=== PATIENT | female | born 1960 | race Caucasian/White ===

== ENCOUNTER 2020-09-20 10:42 | Inpatient (IN) | payer OTHER, SELFPAY ==
[2020-09-20] VITALS (15 sets, daily range): BP systolic 111–175; BP diastolic 56–83; PULSE 36–74; RESP 10–22; TEMP 36.1–37; O2SAT 92–100; BMI 20.5; BMI 25.0
--- NOTE | ~2020-09-20 | XR_ITS ---
EXAMINATION: XR CHEST CLINICAL INFORMATION: SOB COMPARISON: Chest 04/04/2017 TECHNIQUE: Frontal view of the chest was obtained. FINDINGS: The lungs are somewhat expanded and clear. The heart size is enlarged report vascularity is normal. The right jugular central catheter tip is in right atrium. No gross bony abnormality seen. XR/XR chest 1V IMPRESSION: Mild cardiomegaly. No acute pulmonary process seen.
--- NOTE | 2020-09-20 11:01 | PC.NURSE ---
ej done by dr. gipson to right juglar
--- NOTE | 2020-09-20 11:04 | ECG_ITS ---
Test Reason : BRADYCARDIA Blood Pressure : / mmHG Vent. Rate : 039 BPM Atrial Rate : 039 BPM P-R Int : 000 ms QRS Dur : 130 ms QT Int : 610 ms P-R-T Axes : 000 -67 064 degrees QTc Int : 491 ms Idioventricular rhythm vs junctional Abnormal ECG When compared with ECG of 20-SEP-2020 12:15, No significant changes seen Referred By: Rachel Hill Electronically Signed By:JACKIE CHAMBERLAIN
--- NOTE | 2020-09-20 11:08 | ECG_ITS ---
Test Reason : SOB Blood Pressure : / mmHG Vent. Rate : 087 BPM Atrial Rate : 122 BPM P-R Int : 000 ms QRS Dur : 182 ms QT Int : 616 ms P-R-T Axes : 000 -89 062 degrees QTc Int : 741 ms Undetermined rhythm - possibly idiioventricular Left axis deviation Could be from electrolyte abnormality Abnormal ECG When compared with ECG of 04-APR-2017 06:49, Rhythm change Referred By: Rachel Hill Electronically Signed By:JACKIE CHAMBERLAIN
--- NOTE | 2020-09-20 11:17 | ED_ITS ---
HPI - Altered Mental Status General Chief Complaint: Altered Mental Status Stated Complaint: ams Time Seen by Provider: 09/20/20 11:03 History of Present Illness HPI narrative: Patient is a 59-year-old female history of end-stage renal disease. Presented today with having change in mental status at dialysis center. Patient was getting her dialysis when she got more confused more bill rgic sent to the emergency department for further evaluation. Patient unable to give detailed history. It is only really able to give her name. Has a history of colon cancer. Status post colectomy. Patient has an ostomy site. Patient denies any coughing congestion. Feels weak. Related Data Allergies Allergy/AdvReac Type Severity Reaction Status Date / Time Penicillins [PENICILLINS] Allergy Unknown UNKNOWN Unverified 05/02/20 19:17 Review of Systems Review of Systems: Unable to obtain review systems secondary to patient's condition. Yes Unobtainable due to mental condition PMFSH Past Medical History Attestation statement: The following information was validated with the patient. Social History Social History Advance Directives: No Advance Directives Information Provided: No Physical Exam Vital Signs: Vital Signs: Last Vital Signs Pulse 40 L 09/20/20 12:30 Resp 13 09/20/20 12:30 BP 169/63 H 09/20/20 12:30 Pulse Ox 100 09/20/20 12:30 Body Mass Index 25.0 Appearance: Lethargic Oriented X3. Very weak Eyes: Pupils equal, round and reactive to light. ENT: Pharynx normal. Neck: Normal inspection. Neck supple. No lymph nodes noted. No crepitus CVS: Bradycardic. Pulses normal. Normal S1 and S2 Respiratory: No respiratory distress. Breath sounds normal. No Wheezing. No rales Abdomen: Soft and nontender. No rigidity. No distention. good BS x4 Skin: Skin warm and dry. Normal skin color. Normal skin turgor. Extremities: No lower extremity edema. Neurovascular intact to all extremities. No Lacerations. No Rash Neuro: Oriented X 3. Very weak. Moving all extremities MDM - Altered Mental Status MDM Narrative Medical decision making narrative: Patient's initial EKG showed a undetermined axis. Widened QRS and peaked T-waves with a heart rate of approximately 45. Patient with a history of end-stage renal disease. Did not get dialysis. T- waves appear peaked. Labs ordered. A 2nd EKG showed patient's heart rate is actually in the 30s with even more wide QRS an even more peaked T-waves. Patient was given calcium gluconate x2 g. Insulin with glucose. Bicarb drip and bicarb 1 amp IV. A 3rd EKG done showed a heart rate of 25 with a narrow QRS complex T-wave that actually looks improved from the 1st 2. Patient's potassium at that point was still pending. Patient's VBG showed a pH of 7.17. Case was discussed emergently with desulfurizer machine Dr. Bui for emergent dialysis. Patient's case also discussed with ICU and with the nursing material control supervisor for bed placement. Got in touch with Dr. Bui understood patient needs dialysis emergently. Discussed with ICU. Excepted patient to the intensive care unit for emergent dialysis. Patient's heart rate continued to be low in the 25-30 range. She was given 0.5 of atropine. Her heart rate is now in the 45 range. Still in critical condition. Will send patient to the intensive care unit immediately. At this time patient's potassium came back. Her potassium was 10. BUN and creatinine consistent with having end-stage renal disease. Medical Records Attestation: I reviewed the patient's medical records. Lab Data Attestation: I reviewed the patient's lab results. Result diagrams: 09/20/20 11:14 09/20/20 11:44 Labs: Lab Results 09/20/20 09/20/20 09/20/20 Range/Units 11:14 11:15 11:15 WBC 10.4 (4.8-10.8) X10*3/uL RBC 2.91 L (4.20-5.50) X10*6/uL Hgb 9.0 L (12.0-16.0) g/dl Hct 30.8 L (37-47) % MCV 105.8 H (80-98) fL MCH 30.9 (27.0-33.0) pg MCHC 29.2 L (31.0-35.0) g/dl RDW 19.3 H (11.0-16.0) % Plt Count 231 (160-400) X10*3/uL MPV 11.1 (9.4-12.3) fL Immature Gran % (Auto) 0.9 H (0.0-0.4) % Neut % (Auto) 76.7 H (45-73) % Lymph % (Auto) 13.6 L (20-40) % [place] % (Auto) 7.4 (2-11) % Eos % (Auto) 1.0 (0-4) % Baso % (Auto) 0.4 (0-2) % Lymph # (Auto) 1.4 (1.2-4.9) X10*3/uL [place] # (Auto) 0.8 (0.1-1.2) X10*3/uL Eos # (Auto) 0.1 (0.0-0.4) X10*3/uL Baso # (Auto) 0.0 (0.0-0.2) X10*3/uL Abs Immat Gran (auto) 0.09 H (0.00-0.03) X10*3/uL Absolute Neuts (auto) 7.9 (2.0-8.3) X10*3/uL Absolute Nucleated RBC 0.120 H (0.0-0.012) X10*3/uL Nucleated RBC % (auto) 1.2 H (0.0-0.2) /100WBC Smear Tech's Comments VERIFIED PT 17.5 H (10.8-13.0) SEC INR 1.5 H (0.9-1.1) VBG pH (7.32-7.43) VBG pCO2 mmHg VBG pO2 mmHg VBG HCO3 mmol/L VBG O2 Saturation % VBG Base Excess mmol/L BUN (9-16) mg/dL Creatinine (0.5-1.4) mg/dL Estim Creat Clear Calc Estimated GFR POC Glucose (60-115) mg/dL Random Glucose (60-115) mg/dL Lactic Acid 0.3 L (0.5-2.0) mmol/L Calcium (8.4-10.2) mg/dL Phosphorus (2.7-4.5) mg/dL Magnesium (1.6-2.6) mg/dL Total Bilirubin (0.0-1.0) mg/dL Direct Bilirubin (0.0-0.5) mg/dL AST (5-31) U/L ALT (0-31) U/L Alkaline Phosphatase (39-117) U/L Ammonia (13-55) umol/L Total Protein (6.5-8.0) g/dL Albumin (3.5-5.0) g/dL Coronavirus (PCR) (Negative) Influenza Type A (PCR) (Negative) Influenza Type B (PCR) (Negative) RSV RNA Qual (PCR) (Negative) 09/20/20 09/20/20 09/20/20 Range/Units 11:19 11:44 11:44 WBC (4.8-10.8) X10*3/uL RBC (4.20-5.50) X10*6/uL Hgb (12.0-16.0) g/dl Hct (37-47) % MCV (80-98) fL MCH (27.0-33.0) pg MCHC (31.0-35.0) g/dl RDW (11.0-16.0) % Plt Count (160-400) X10*3/uL MPV (9.4-12.3) fL Immature Gran % (Auto) (0.0-0.4) % Neut % (Auto) (45-73) % Lymph % (Auto) (20-40) % [place] % (Auto) (2-11) % Eos % (Auto) (0-4) % Baso % (Auto) (0-2) % Lymph # (Auto) (1.2-4.9) X10*3/uL [place] # (Auto) (0.1-1.2) X10*3/uL Eos # (Auto) (0.0-0.4) X10*3/uL Baso # (Auto) (0.0-0.2) X10*3/uL Abs Immat Gran (auto) (0.00-0.03) X10*3/uL Absolute Neuts (auto) (2.0-8.3) X10*3/uL Absolute Nucleated RBC (0.0-0.012) X10*3/uL Nucleated RBC % (auto) (0.0-0.2) /100WBC Smear Tech's Comments PT (10.8-13.0) SEC INR (0.9-1.1) VBG pH (7.32-7.43) VBG pCO2 mmHg VBG pO2 mmHg VBG HCO3 mmol/L VBG O2 Saturation % VBG Base Excess mmol/L BUN 99 H* (9-16) mg/dL Creatinine 9.16 H* (0.5-1.4) mg/dL Estim Creat Clear Calc 6.1 Estimated GFR 4 POC Glucose (60-115) mg/dL Random Glucose 230 H (60-115) mg/dL Lactic Acid (0.5-2.0) mmol/L Calcium 7.7 L (8.4-10.2) mg/dL Phosphorus 9.5 H (2.7-4.5) mg/dL Magnesium 2.2 (1.6-2.6) mg/dL Total Bilirubin 2.1 H (0.0-1.0) mg/dL Direct Bilirubin 1.9 H (0.0-0.5) mg/dL AST 56 H (5-31) U/L ALT 86 H (0-31) U/L Alkaline Phosphatase 1110 H (39-117) U/L Ammonia 35 (13-55) umol/L Total Protein 8.9 H (6.5-8.0) g/dL Albumin 3.2 L (3.5-5.0) g/dL Coronavirus (PCR) NEGATIVE (Negative) Influenza Type A (PCR) NEGATIVE (Negative) Influenza Type B (PCR) NEGATIVE (Negative) RSV RNA Qual (PCR) NEGATIVE (Negative) 09/20/20 09/20/20 Range/Units 11:44 12:02 WBC (4.8-10.8) X10*3/uL RBC (4.20-5.50) X10*6/uL Hgb (12.0-16.0) g/dl Hct (37-47) % MCV (80-98) fL MCH (27.0-33.0) pg MCHC (31.0-35.0) g/dl RDW (11.0-16.0) % Plt Count (160-400) X10*3/uL MPV (9.4-12.3) fL Immature Gran % (Auto) (0.0-0.4) % Neut % (Auto) (45-73) % Lymph % (Auto) (20-40) % [place] % (Auto) (2-11) % Eos % (Auto) (0-4) % Baso % (Auto) (0-2) % Lymph # (Auto) (1.2-4.9) X10*3/uL [place] # (Auto) (0.1-1.2) X10*3/uL Eos # (Auto) (0.0-0.4) X10*3/uL Baso # (Auto) (0.0-0.2) X10*3/uL Abs Immat Gran (auto) (0.00-0.03) X10*3/uL Absolute Neuts (auto) (2.0-8.3) X10*3/uL Absolute Nucleated RBC (0.0-0.012) X10*3/uL Nucleated RBC % (auto) (0.0-0.2) /100WBC Smear Tech's Comments PT (10.8-13.0) SEC INR (0.9-1.1) VBG pH 7.17 L* (7.32-7.43) VBG pCO2 37 mmHg VBG pO2 91 mmHg VBG HCO3 13 mmol/L VBG O2 Saturation 93.0 % VBG Base Excess -13.6 mmol/L BUN (9-16) mg/dL Creatinine (0.5-1.4) mg/dL Estim Creat Clear Calc Estimated GFR POC Glucose 215 H (60-115) mg/dL Random Glucose (60-115) mg/dL Lactic Acid (0.5-2.0) mmol/L Calcium (8.4-10.2) mg/dL Phosphorus (2.7-4.5) mg/dL Magnesium (1.6-2.6) mg/dL Total Bilirubin (0.0-1.0) mg/dL Direct Bilirubin (0.0-0.5) mg/dL AST (5-31) U/L ALT (0-31) U/L Alkaline Phosphatase (39-117) U/L Ammonia (13-55) umol/L Total Protein (6.5-8.0) g/dL Albumin (3.5-5.0) g/dL Coronavirus (PCR) (Negative) Influenza Type A (PCR) (Negative) Influenza Type B (PCR) (Negative) RSV RNA Qual (PCR) (Negative) ECG Data ECG #1: Interpretation: First EKG showed an undetermined rhythm heart rate was approximately 45. Patient has widened QRS and peaked T-waves. Second EKG showed a heart rate of approximately 30. With a an extremely widened QRS and even more peaked T-wave. Third EKG showed a heart rate of approximately 30 with QRS narrow old substantially peaked T-waves improved dramatically. 4 th EKG showed a idioventricular rhythm heart rate of 40. QRS has narrowed T- wave not as peaked is the 1st 3. Critical Care Time Critical Care Time Critical Care Time: Yes Total Critical Care Time: 120 Attestation: I have personally provided 120 minutes of critical care time exclusive of time spent on separately billable procedures. Time includes review of lab data, radiology results, discussion with consultants, and monitoring for potential decompensation. Interventions were performed as documented above Discharge Plan Discharge Clinical Impression: ESRD (end stage renal disease), Acute hyperkalemia Patient Disposition: Admitted As Inpatient
[2020-09-20 11:43] LABS: INTERNATIONAL NORM RATIO 1.5 (0.9-1.1); Prothrombin Time 17.5 SEC (10.8-13.0)
[2020-09-20 11:44] LABS: Lactic Acid 0.3 mmol/L (0.5-2.0)
[2020-09-20 11:48] LABS: Basophils Percent Auto 0.4 % (0-2); Eosinophils Absolute Auto 0.1 X10*3/uL (0.0-0.4); Hematocrit 30.8 % (37-47); Imm Gran Abs Auto 0.09 X10*3/uL (0.00-0.03); Imm Gran Pct Auto 0.9 % (0.0-0.4); Lymphocytes Absolute Auto 1.4 X10*3/uL (1.2-4.9); Lymphocytes Percent Auto 13.6 % (20-40); Mean Corpuscular HGB Conc 29.2 g/dl (31.0-35.0); Mean Corpuscular Hemoglobin 30.9 pg (27.0-33.0); Mean Corpuscular Volume 105.8 fL (80-98); Mean Platelet Volume 11.1 fL (9.4-12.3); Monocytes Absolute Auto 0.8 X10*3/uL (0.1-1.2); Monocytes Percent Auto 7.4 % (2-11); Neutrophils Absolute Auto 7.9 X10*3/uL (2.0-8.3); Neutrophils Percent Auto 76.7 % (45-73); Platelet Count 231 X10*3/uL (160-400); Red Blood Count 2.91 X10*6/uL (4.20-5.50); Red Cell Distribution Width 19.3 % (11.0-16.0); White Blood Count 10.4 X10*3/uL (4.8-10.8)
[2020-09-20 11:54] LABS: PCO2 VBG 37 mmHg; PO2 VBG 91 mmHg
[2020-09-20 11:55] LABS: Base Excess VBG -13.6 mmol/L; HCO3 VBG 13 mmol/L
[2020-09-20 11:57] LABS: pH VBG 7.17 (7.32-7.43)
[2020-09-20 11:58] LABS: MANUAL DIFF FLAG SCAN; NRBC Pct Auto 1.2 /100WBC (0.0-0.2)
--- NOTE | 2020-09-20 12:01 | ECG_ITS ---
Test Reason : REPEAT Blood Pressure : / mmHG Vent. Rate : 029 BPM Atrial Rate : 000 BPM P-R Int : 000 ms QRS Dur : 088 ms QT Int : 520 ms P-R-T Axes : 000 000 258 degrees QTc Int : 362 ms Idioventricular rhythm Abnormal ECG When compared with ECG of 20-SEP-2020 11:41, No significant changes seen Referred By: Rachel Hill Electronically Signed By:JACKIE CHAMBERLAIN
[2020-09-20 12:06] LABS: Glucose, Whole Blood 215 mg/dL (60-115)
[2020-09-20] MEDS: Calcium Gluconate/NaCl,Iso-Osm 1 GM/50 ML PLAST..BAG IV ×2 (12:10→12:15)
--- NOTE | 2020-09-20 12:10 | PC.NURSE ---
pt was brought to ED by EMS from dialysis for altered mental status. after pt HR dropped into the high 20's, at bedside, pt placed on pacer pads. pt was given IV calcium gluconate x 2, 1 amp of sodium bicarbonate, half amp of dextrose, 5 units of insulin.
[2020-09-20] MEDS: Sodium Bicarbonate 8.4% 150 MEQ in Dextrose 5 % 850 ML 50 MEQ IVPUSH (12:12)
--- NOTE | 2020-09-20 12:12 | ECG_ITS ---
Test Reason : REPEAT Blood Pressure : / mmHG Vent. Rate : 039 BPM Atrial Rate : 039 BPM P-R Int : 000 ms QRS Dur : 102 ms QT Int : 594 ms P-R-T Axes : 000 -53 058 degrees QTc Int : 478 ms Undetermined rhythm Possibly junctional Abnormal ECG When compared with ECG of 20-SEP-2020 12:03, Significant changes have occurred Referred By: Rachel Hill Electronically Signed By:JACKIE CHAMBERLAIN
[2020-09-20 12:15] LABS: Ammonia 35 umol/L (13-55)
[2020-09-20] MEDS: Insulin Regular, Human 100 UNIT/ML 3 ML VIAL IVPUSH (12:15)
[2020-09-20] MEDS: Dextrose 50 % 25 GM/50 ML SYRINGE IVPUSH (12:16)
[2020-09-20 12:18] LABS: Influenza A PCR NEGATIVE (Negative); Influenza B PCR NEGATIVE (Negative); Resp Syncy Virus RNA Qual PCR NEGATIVE (Negative); SARS COV2 PCR INHOUSE NEGATIVE (Negative)
[2020-09-20 12:23] LABS: SLIDE REVIEW VERIFIED
[2020-09-20 12:29] LABS: Alanine Aminotransferase 86 U/L (0-31); Albumin Level 3.2 g/dL (3.5-5.0); Alkaline Phosphatase 1110 U/L (39-117); Aspartate Amino Transferase 56 U/L (5-31); Bilirubin Direct 1.9 mg/dL (0.0-0.5); Bilirubin Total 2.1 mg/dL (0.0-1.0); Calcium 7.7 mg/dL (8.4-10.2); Glucose Random 230 mg/dL (60-115); Magnesium 2.2 mg/dL (1.6-2.6); Phosphorus 9.5 mg/dL (2.7-4.5); Total Protein 8.9 g/dL (6.5-8.0)
--- NOTE | 2020-09-20 12:30 | PC.NURSE ---
pt given half amp of atropine for low HR with MD at bedside. pt has left BKA. Right foot has wound on heel and toes with developing necrosis. ring finger tip on left hand also developing necrosis. pt also has a colostomy bag on right side of abdomen.
[2020-09-20 12:31] LABS: Creatinine Clr Calc Pharmacy 6.1; Estimated Glomerular Filt Rate 4
[2020-09-20 12:34] LABS: Sodium 130 mmol/L (135-145)
[2020-09-20 12:35] LABS: Anion Gap 23 (12-20); Carbon Dioxide 13 mmol/L (22-29); Chloride 104 mmol/L (96-108)
[2020-09-20 12:36] LABS: Blood Urea Nitrogen 99 mg/dL (9-16)
[2020-09-20 12:40] LABS: Glucose, Whole Blood 254 mg/dL (60-115)
--- NOTE | 2020-09-20 12:55 | PC.NURSE ---
nurse to nurse given to wei rn, pt aware of planof care for transfer to icu.
[2020-09-20 13:22] LABS: Glucose, Whole Blood 169 mg/dL (60-115)
[2020-09-20 13:37] LABS: Glucose, Whole Blood 245 mg/dL (60-115)
[2020-09-20] MEDS: diphenhydrAMINE HCL 50 MG/ML VIAL 25 MG IVPUSH (14:37)
[2020-09-20] MEDS: hydrALAZINE HCl 20 MG/ML VIAL IVPUSH (14:38)
--- NOTE | 2020-09-20 14:43 | PM.CCHP ---
History of Present Illness Date of Service: 09/20/20 Mrs. Corcoran is admitted to the ICU this afternoon with symptomatic hyperkalemia, for acute hemodialysis. The patient is a 59-year-old female with end-stage renal disease and poorly controlled hypertension. The patient tells us that she is dialyzed Wednesday, but missed her dialysis session this past Wednesday. On arrival to her dialysis center this morning, she was confused and lethargic, and was therefore not dialyzed, and sent here to the ED for evaluation. In the ED she was confused and unable to give a history. She was only able to give her name. She has a history of colon cancer and has an ostomy. She denied any coughing or congestion, feels weak. Initial vital signs in the ED showed a heart rate of 48, blood pressure 150/74, respiratory rate of 17, with a sat of high 100% on 3 L nasal cannula. Her heart rate dropped down into the 30s, but she was still hypertensive. Temperature was 97.2 degrees. EKG showed undetermined axis with widened QRS and peaked T-waves. She was given calcium gluconate, insulin, glucose, and bicarb. Labs were drawn, and she was referred urgently to the ICU for emergent dialysis. Labs from the ED came back as below. Notably, potassium is 10, BUN and creatinine 99/9.1, bicarb of 13, glucose of 230, Taylor 9.5, mildly elevated LFTs, albumin 3.2. COVID serology negative. In the ICU, heart rate was 60, blood pressure 158/63, breathing easy, with sat 100% on 3 L oxygen by nasal cannula. Temperature was 97.2 degrees. The patient is lethargic, but able to answer questions with vigorous prompting. She has about 3-4 cm JVD with the head of the bed at 30-40 degrees. Chest is clear to auscultation, with a normal expiratory phase. She has a PermCath. She has multiple lesions from scratching all over her body. She has an area of gangrene at the tip of one of the fingers on her left hand. 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 She?s been started on HD. BP is now up to 210/95. I?m giving her 20 mg hydralazine and 25 mg Benadryl for her itching, while we wait for her Med Rec. IMPRESSION: 1. End-stage renal disease with dialysis noncompliance 2. Symptomatic hyperkalemia 3. Uncontrolled hypertension. Blood pressure now down to 160/83. No evidence of pulmonary edema. Sat is now 94% on room air. She should be stable to transfer to a regular room after completion of dialysis. I will sign out to the hospitalists. We are awaiting her Med Rec to restart her antihypertensives. Critical care time: 60 minutes. [facility] Social History Social History Household Members: Other Household Members Other:: [employer] facilty Housing: Shelter Unable to assess alcohol history related to: Unknown and Refusing to respond Smoking Status: Smoker, status unknown Use of substances other than those prescribed or required for medical reasons: Refusing to respond Currently Displaying Signs/Symptoms of Drug Intoxication Withdrawal: No Advance Directives: No Advance Directives Information Provided: No Do you have thoughts of harming others: None Do you have a plan to hurt others: No Plan Recently lost weight without trying: Unsure Meds Allergies Allergy/AdvReac Type Severity Reaction Status Date / Time Penicillins [PENICILLINS] Allergy Unknown UNKNOWN Unverified 09/20/20 14:36 Home Medications Medication Instructions Recorded Confirmed Type B complex-vitamin C-folic acid 1 tab PO DAILY 09/20/20 09/20/20 History [Nephro-Huan] acetaminophen 650 mg PO Q6H PRN 09/20/20 09/20/20 History [id number] 1 ea PO DAILY 09/20/20 09/20/20 History atorvastatin 20 mg PO BEDTIME 09/20/20 09/20/20 History bisacodyl 5 mg PO BEDTIME 09/20/20 09/20/20 History carvedilol 25 mg PO BID 09/20/20 09/20/20 History cholecalciferol (vitamin D3) 1,250 mcg PO QWEEK 09/20/20 09/20/20 History hydromorphone 2 mg PO Q4H PRN 09/20/20 09/20/20 History insulin lispro [Admelog U-100 1 sliding scale dose SUBCUT 09/20/20 09/20/20 History Insulin lispro] USEASDIRECTD lisinopril 5 mg PO DAILY 09/20/20 09/20/20 History melatonin 5 mg PO BEDTIME PRN 09/20/20 09/20/20 History methadone [Methadone Intensol] 20 mg PO DAILY 09/20/20 09/20/20 History midodrine 5 mg PO BID PRN 09/20/20 09/20/20 History mirtazapine [Remeron] 7.5 mg PO BEDTIME 09/20/20 09/20/20 History pantoprazole [Protonix] 40 mg PO DAILY 09/20/20 09/20/20 History sevelamer carbonate 800 mg PO TID 09/20/20 09/20/20 History sodium polystyrene sulfonate 15 g PO YOU@1000 09/20/20 09/20/20 History [Kayexalate] Physical Exam Vital Signs: Vital Signs: Last Vital Signs Temp 97.2 F 09/20/20 14:00 Pulse 69 09/20/20 14:38 Resp 10 L 09/20/20 14:00 BP 160/83 H 09/20/20 14:38 Pulse Ox 100 09/20/20 14:00 Body Mass Index 25.0 Results Labs CBC and Chem 7: 09/20/20 11:14 09/20/20 11:44 Labs: Laboratory Results - last 24 hr 09/20/20 09/20/20 09/20/20 10:52 11:14 11:15 MCV 105.8 H MCH 30.9 MCHC 29.2 L RDW 19.3 H Plt Count 231 MPV 11.1 Immature Gran % (Auto) 0.9 H Neut % (Auto) 76.7 H Lymph % (Auto) 13.6 L [place] % (Auto) 7.4 Eos % (Auto) 1.0 Baso % (Auto) 0.4 Lymph # (Auto) 1.4 [place] # (Auto) 0.8 Eos # (Auto) 0.1 Baso # (Auto) 0.0 Abs Immat Gran (auto) 0.09 H Absolute Neuts (auto) 7.9 Absolute Nucleated RBC 0.120 H Nucleated RBC % (auto) 1.2 H Smear Tech's Comments VERIFIED PT 17.5 H INR 1.5 H VBG pH VBG pCO2 VBG pO2 VBG HCO3 VBG O2 Saturation VBG Base Excess Anion Gap Estim Creat Clear Calc Estimated GFR POC Glucose 169 H Random Glucose Lactic Acid Calcium Phosphorus Magnesium Total Bilirubin Direct Bilirubin AST ALT Alkaline Phosphatase Ammonia Total Protein Albumin Coronavirus (PCR) Influenza Type A (PCR) Influenza Type B (PCR) RSV RNA Qual (PCR) 09/20/20 09/20/20 09/20/20 11:15 11:19 11:44 MCV MCH MCHC RDW Plt Count MPV Immature Gran % (Auto) Neut % (Auto) Lymph % (Auto) [place] % (Auto) Eos % (Auto) Baso % (Auto) Lymph # (Auto) [place] # (Auto) Eos # (Auto) Baso # (Auto) Abs Immat Gran (auto) Absolute Neuts (auto) Absolute Nucleated RBC Nucleated RBC % (auto) Smear Tech's Comments PT INR VBG pH VBG pCO2 VBG pO2 VBG HCO3 VBG O2 Saturation VBG Base Excess Anion Gap 23 H Estim Creat Clear Calc 6.1 Estimated GFR 4 POC Glucose Random Glucose 230 H Lactic Acid 0.3 L Calcium 7.7 L Phosphorus 9.5 H Magnesium 2.2 Total Bilirubin 2.1 H Direct Bilirubin 1.9 H AST 56 H ALT 86 H Alkaline Phosphatase 1110 H Ammonia Total Protein 8.9 H Albumin 3.2 L Coronavirus (PCR) NEGATIVE Influenza Type A (PCR) NEGATIVE Influenza Type B (PCR) NEGATIVE RSV RNA Qual (PCR) NEGATIVE 09/20/20 09/20/20 09/20/20 11:44 11:44 12:02 MCV MCH MCHC RDW Plt Count MPV Immature Gran % (Auto) Neut % (Auto) Lymph % (Auto) [place] % (Auto) Eos % (Auto) Baso % (Auto) Lymph # (Auto) [place] # (Auto) Eos # (Auto) Baso # (Auto) Abs Immat Gran (auto) Absolute Neuts (auto) Absolute Nucleated RBC Nucleated RBC % (auto) Smear Tech's Comments PT INR VBG pH 7.17 L* VBG pCO2 37 VBG pO2 91 VBG HCO3 13 VBG O2 Saturation 93.0 VBG Base Excess -13.6 Anion Gap Estim Creat Clear Calc Estimated GFR POC Glucose 215 H Random Glucose Lactic Acid Calcium Phosphorus Magnesium Total Bilirubin Direct Bilirubin AST ALT Alkaline Phosphatase Ammonia 35 Total Protein Albumin Coronavirus (PCR) Influenza Type A (PCR) Influenza Type B (PCR) RSV RNA Qual (PCR) 09/20/20 09/20/20 12:36 13:32 MCV MCH MCHC RDW Plt Count MPV Immature Gran % (Auto) Neut % (Auto) Lymph % (Auto) [place] % (Auto) Eos % (Auto) Baso % (Auto) Lymph # (Auto) [place] # (Auto) Eos # (Auto) Baso # (Auto) Abs Immat Gran (auto) Absolute Neuts (auto) Absolute Nucleated RBC Nucleated RBC % (auto) Smear Tech's Comments PT INR VBG pH VBG pCO2 VBG pO2 VBG HCO3 VBG O2 Saturation VBG Base Excess Anion Gap Estim Creat Clear Calc Estimated GFR POC Glucose 254 H 245 H Random Glucose Lactic Acid Calcium Phosphorus Magnesium Total Bilirubin Direct Bilirubin AST ALT Alkaline Phosphatase Ammonia Total Protein Albumin Coronavirus (PCR) Influenza Type A (PCR) Influenza Type B (PCR) RSV RNA Qual (PCR) Imaging Radiologist's Impressions: Impressions Chest X-Ray 09/20/20 11:04 IMPRESSION: Mild cardiomegaly. No acute pulmonary process seen. Critical Care Time Critical Care Time (minutes): 60
--- NOTE | 2020-09-20 15:32 | P.CONNP_ITS ---
History of Present Illness Reason for Consult Consult date: 09/20/20 Chief Complaint Chief complaint: ESRF, symptomatic hyperkalemia History of Present Illness Narrative: Elvia is a 59-year-old non compliant female with end-stage renal dis ease who usually gets dialysis on Wednesday presented to ER with confusion and lethargy. She has not had dialysis on Wednesday. She denied any coughing or congestion, feels weak. In the ER she had a heart rate of 30, blood pressure 150/74, respiratory rate of 17, with a sat of high 10 0% on 3 L nasal cannula. EKG showed undetermined axis with widened QRS and peaked T-waves. She was given calcium gluconate, insulin, glucose, and bicarb. Her serum was potassium is 10, COVID serology negative. Nephrology was consulted to assit in her clinical care.. 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 Housing: [facility] Unable to assess alcohol history related to: Unknown and Refusing to respond Smoking Status: Smoker, status unknown Use of substances other than those prescribed or required for medical reasons: Refusing to respond Advance Directives: No Advance Directives Information Provided: No Do you have thoughts of harming others: None Do you have a plan to hurt others: No Plan Recently lost weight without trying: Unsure Meds Allergies Allergy/AdvReac Type Severity Reaction Status Date / Time Penicillins [PENICILLINS] Allergy Unknown UNKNOWN Unverified 09/20/20 14:36 Home Medications Medication Instructions Recorded Confirmed Type B complex-vitamin C-folic acid 1 tab PO DAILY 09/20/20 09/20/20 History [Nephro-Huan] acetaminophen 650 mg PO Q6H PRN 09/20/20 09/20/20 History [id number] 1 ea PO DAILY 09/20/20 09/20/20 History atorvastatin 20 mg PO BEDTIME 09/20/20 09/20/20 History bisacodyl 5 mg PO BEDTIME 09/20/20 09/20/20 History carvedilol 25 mg PO BID 09/20/20 09/20/20 History cholecalciferol (vitamin D3) 1,250 mcg PO QWEEK 09/20/20 09/20/20 History hydromorphone 2 mg PO Q4H PRN 09/20/20 09/20/20 History insulin lispro [Admelog U-100 1 sliding scale dose SUBCUT 09/20/20 09/20/20 Hi story Insulin lispro] USEASDIRECTD lisinopril 5 mg PO DAILY 09/20/20 09/20/20 History melatonin 5 mg PO BEDTIME PRN 09/20/20 09/20/20 History methadone [Methadone Intensol] 20 mg PO DAILY 09/20/20 09/20/20 History midodrine 5 mg PO BID PRN 09/20/20 09/20/20 History mirtazapine [Remeron] 7.5 mg PO BEDTIME 09/20/20 09/20/20 History pantoprazole [Protonix] 40 mg PO DAILY 09/20/20 09/20/20 History sevelamer carbonate 800 mg PO TID 09/20/20 09/20/20 History sodium polystyrene sulfonate 15 g PO YOU@1000 09/20/20 09/20/20 History [Kayexalate] Physical Exam Vital Signs: Last Vital Signs Temp 97.2 F 09/20/20 14:00 Pulse 69 09/20/20 14:38 Resp 10 L 09/20/20 14:00 BP 160/83 H 09/20/20 14:38 Pulse Ox 100 09/20/20 14:00 Body Mass Index 25.0 Const General: confusion Orientation/consciousness: confusion Neck Neck: Yes supple Resp Auscultation: diminished lung sounds Cardio Rate: regular rate GI Palpation (GI): Soft to palpation Neuro General: confusion Results Lab Results Result Diagrams: 09/20/20 11:14 09/20/20 11:44 Lab results: Chemistry 09/20/20 11:44 Sodium 130 L Potassium 10.0 H* Carbon Dioxide 13 L BUN 99 H* Creatinine 9.16 H* Calcium 7.7 L Phosphorus 9.5 H Hematology 09/20/20 11:14 WBC 10.4 Hgb 9.0 L Plt Count 231 Assessment and Plan (1) ESRD (end stage renal disease): Problem details: Life threatening Hyperkalemia needing emergent HD( arranged) Renal Diet ( Low K/ Low Na/Low Phos/Fluid restriction) May need HD again tomorrow. HD MWF; Phos binders with meals Shall follow up Status: Acute
--- NOTE | 2020-09-20 15:47 | PC.NURSE ---
Pt arrived to ICu room 254 via stretcher with ed rn and zoll with no incident. Pt lethargic but arousable, hr 30s, no p waves, bps 150s systollically. benzol operator at bedside and pt immediately started on dialysis. Sodium bicarb infusing through EJ on right side. Pt initially unable to move extremities, after a few minutes of dilaysis pt more wakefull and heart rate up to 60s-70s. BPS trending 200s systollically, made aware hydralizine ordered and given with good effect. PT complaining of skin itchiness, picking at scabs on body, md aware, and benedryl iv ordered and given. pt with mulitple wounds on body, photos in chart. Wound consult placed.
[2020-09-21] VITALS (9 sets, daily range): BP systolic 129–198; BP diastolic 60–89; PULSE 64–69; RESP 17–18; TEMP 36.4–37.1; O2SAT 96–100
[2020-09-21 07:07] LABS: Glucose, Whole Blood 90 mg/dL (60-115)
--- NOTE | 2020-09-21 09:14 | PM.PNNEP ---
Subjective Subjective Date of Service: 09/21/20 Physical Exam Vital Signs: Vital Signs: Last Vital Signs Temp 98.2 F 09/21/20 07:09 Pulse 65 09/21/20 07:09 Resp 17 09/21/20 07:09 BP 139/65 09/21/20 07:09 Pulse Ox 100 09/21/20 07:09 Body Mass Index 25.0 Const: General: confusion and tired appearing Orientation/consciousness: confusion Neck: Neck: Yes supple Resp: Auscultation: diminished lung sounds Cardio: Jugular venous distension: no JVD Rate: regular rate GI: Palpation (GI): Soft to palpation Auscultation: normal bowel sounds Neuro: General: confusion Motor exam (neuro): no asterixis Objective Data Labs CBC & Chem 7: 09/20/20 11:14 09/20/20 11:44 Labs: Laboratory Results - last 24 hr 09/20/20 09/20/20 09/20/20 10:52 11:14 11:15 WBC 10.4 RBC 2.91 L Hgb 9.0 L Hct 30.8 L MCV 105.8 H MCH 30.9 MCHC 29.2 L RDW 19.3 H Plt Count 231 MPV 11.1 Immature Gran % (Auto) 0.9 H Neut % (Auto) 76.7 H Lymph % (Auto) 13.6 L Mccormick % (Auto) 7.4 Eos % (Auto) 1.0 Baso % (Auto) 0.4 Lymph # (Auto) 1.4 Mccormick # (Auto) 0.8 Eos # (Auto) 0.1 Baso # (Auto) 0.0 Abs Immat Gran (auto) 0.09 H Absolute Neuts (auto) 7.9 Absolute Nucleated RBC 0.120 H Nucleated RBC % (auto) 1.2 H Smear Tech's Comments VERIFIED PT 17.5 H INR 1.5 H VBG pH VBG pCO2 VBG pO2 VBG HCO3 VBG O2 Saturation VBG Base Excess Sodium Potassium Chloride Carbon Dioxide Anion Gap BUN Creatinine Estim Creat Clear Calc Estimated GFR POC Glucose 169 H Random Glucose Lactic Acid Calcium Phosphorus Magnesium Total Bilirubin Direct Bilirubin AST ALT Alkaline Phosphatase Ammonia Total Protein Albumin Coronavirus (PCR) Influenza Type A (PCR) Influenza Type B (PCR) RSV RNA Qual (PCR) 09/20/20 09/20/20 09/20/20 11:15 11:19 11:44 WBC RBC Hgb Hct MCV MCH MCHC RDW Plt Count MPV Immature Gran % (Auto) Neut % (Auto) Lymph % (Auto) Mccormick % (Auto) Eos % (Auto) Baso % (Auto) Lymph # (Auto) Mccormick # (Auto) Eos # (Auto) Baso # (Auto) Abs Immat Gran (auto) Absolute Neuts (auto) Absolute Nucleated RBC Nucleated RBC % (auto) Smear Tech's Comments PT INR VBG pH VBG pCO2 VBG pO2 VBG HCO3 VBG O2 Saturation VBG Base Excess Sodium 130 L Potassium 10.0 H* Chloride 104 Carbon Dioxide 13 L Anion Gap 23 H BUN 99 H* Creatinine 9.16 H* Estim Creat Clear Calc 6.1 Estimated GFR 4 POC Glucose Random Glucose 230 H Lactic Acid 0.3 L Calcium 7.7 L Phosphorus 9.5 H Magnesium 2.2 Total Bilirubin 2.1 H Direct Bilirubin 1.9 H AST 56 H ALT 86 H Alkaline Phosphatase 1110 H Ammonia Total Protein 8.9 H Albumin 3.2 L Coronavirus (PCR) NEGATIVE Influenza Type A (PCR) NEGATIVE Influenza Type B (PCR) NEGATIVE RSV RNA Qual (PCR) NEGATIVE 09/20/20 09/20/20 09/20/20 11:44 11:44 12:02 WBC RBC Hgb Hct MCV MCH MCHC RDW Plt Count MPV Immature Gran % (Auto) Neut % (Auto) Lymph % (Auto) Mccormick % (Auto) Eos % (Auto) Baso % (Auto) Lymph # (Auto) Mccormick # (Auto) Eos # (Auto) Baso # (Auto) Abs Immat Gran (auto) Absolute Neuts (auto) Absolute Nucleated RBC Nucleated RBC % (auto) Smear Tech's Comments PT INR VBG pH 7.17 L* VBG pCO2 37 VBG pO2 91 VBG HCO3 13 VBG O2 Saturation 93.0 VBG Base Excess -13.6 Sodium Potassium Chloride Carbon Dioxide Anion Gap BUN Creatinine Estim Creat Clear Calc Estimated GFR POC Glucose 215 H Random Glucose Lactic Acid Calcium Phosphorus Magnesium Total Bilirubin Direct Bilirubin AST ALT Alkaline Phosphatase Ammonia 35 Total Protein Albumin Coronavirus (PCR) Influenza Type A (PCR) Influenza Type B (PCR) RSV RNA Qual (PCR) 09/20/20 09/20/20 09/21/20 12:36 13:32 07:04 WBC RBC Hgb Hct MCV MCH MCHC RDW Plt Count MPV Immature Gran % (Auto) Neut % (Auto) Lymph % (Auto) Mccormick % (Auto) Eos % (Auto) Baso % (Auto) Lymph # (Auto) Mccormick # (Auto) Eos # (Auto) Baso # (Auto) Abs Immat Gran (auto) Absolute Neuts (auto) Absolute Nucleated RBC Nucleated RBC % (auto) Smear Tech's Comments PT INR VBG pH VBG pCO2 VBG pO2 VBG HCO3 VBG O2 Saturation VBG Base Excess Sodium Potassium Chloride Carbon Dioxide Anion Gap BUN Creatinine Estim Creat Clear Calc Estimated GFR POC Glucose 254 H 245 H 90 Random Glucose Lactic Acid Calcium Phosphorus Magnesium Total Bilirubin Direct Bilirubin AST ALT Alkaline Phosphatase Ammonia Total Protein Albumin Coronavirus (PCR) Influenza Type A (PCR) Influenza Type B (PCR) RSV RNA Qual (PCR) Assessment & Plan Assessment and plan (1) ESRD (end stage renal disease): Problem details: Life threatening Hyperkalemia needing emergent HD Had HD yesterday No repeat K levels thus far Ordered STAT K levels Renal Diet ( Low K/ Low Na/Low Phos/Fluid restriction) May need HD again today depending on K level. HD MWF; Phos binders with meals Shall follow up Status: Acute Time Spent With Patient Time: Total time spent is greater than 50% in coordination of care (as documented) at patient's floor/unit and/or counseling patient:
[2020-09-21 09:46] LABS: Anion Gap 17 (12-20); Blood Urea Nitrogen 35 mg/dL (9-16); Carbon Dioxide 21 mmol/L (22-29); Chloride 97 mmol/L (96-108); Creatinine Clr Calc Pharmacy 11.8; Estimated Glomerular Filt Rate 9; Glucose Random 83 mg/dL (60-115); Potassium 4.4 mmol/L (3.3-5.1); Sodium 131 mmol/L (135-145)
[2020-09-21] MEDS: diphenhydrAMINE HCL 50 MG/ML VIAL 25 MG IVPUSH ×2 (10:50→20:46)
[2020-09-21 11:27] LABS: Glucose, Whole Blood 148 mg/dL (60-115)
[2020-09-21] MEDS: ondansetron HCL 4 MG/2 ML VIAL IVPUSH (11:47)
--- NOTE | 2020-09-21 13:53 | HO.PM.IMPN ---
Subjective Subjective Date of Service: 09/22/20 Interval History: Patient dry heaving feels nauseous vomited 100 mL of bile , complaining of itching requesting for IV Benadryl, has no diet order is insulin-dependent diabetic blood sugars stable, BP normal at 07:00 now 198/89 General no headache, no dizziness no fever chills, generalized itching. CVS no chest pain, no palpitation. Respiratory no cough , no shortness of breath Gastrointestinal nausea , vomiting, dry heaves Physical Exam Vital Signs: Vital Signs: Last Vital Signs Temp 97.6 F 09/21/20 11:29 Pulse 68 09/21/20 11:29 Resp 18 09/21/20 11:29 BP 198/89 H 09/21/20 11:29 Pulse Ox 99 09/21/20 11:29 Body Mass Index 25.0 General in distress due to nausea and dry heaving, awake alert Neck supple no JVD. CVS regular rate rhythm, Respiratory lungs clear to auscultation, no respiratory distress Gastrointestinal abdomen soft, nontender, bowel sounds audible, no guarding , no rigidity, colostomy bag with brown liquidy stool. Extremities left BKA, right lower extremity no edema. 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 PO BEDTIME JENIFER Carvedilol 6.25 mg 09/21/20 13:52 Carvedilol 6.25 Mg Tablet PO 09/21/20 13:53 ONCE ONE Protocol Diphenhydramine HCl 25 mg 09/21/20 10:02 09/21/20 10:50 Diphenhydramine Hcl 50 Mg/Ml Vial IVPUSH 25 mg Q6H PRN Administration itching Methadone HCl 20 mg 09/21/20 09:00 09/21/20 10:51 Methadone Hcl 1 Mg/0.1 Ml Oral.Conc PO 20 mg DAILY [facility] Administration Midodrine 5 mg 09/21/20 08:54 Midodrine Hcl 5 Mg Tablet PO BID PRN DIALYSIS Mirtazapine 7.5 mg 09/21/20 21:00 Mirtazapine 15 Mg Tablet PO BEDTIME [facility] Omeprazole 20 mg 09/22/20 09:00 Omeprazole 20 Mg Capsule.Dr PO DAILY JENIFER Ondansetron HCl 4 mg 09/21/20 11:10 09/21/20 11:47 Ondansetron Hcl 4 Mg/2 Ml Vial IVPUSH 4 mg Q8H PRN Administration Nausea Sevelamer HCl 800 mg 09/21/20 12:00 09/21/20 12:39 Sevelamer Hcl 800 Mg Tablet PO Not Given TIDWM [facility] Labs CBC & Chem 7: 09/20/20 11:14 09/21/20 08:42 Microbiology Microbiology Results: Microbiology 09/20/20 11:21 Blood - Venous Blood Culture - Preliminary No growth after 24 hours. 09/20/20 11:19 Blood - Venous Blood Culture - Preliminary No growth after 24 hours. Assessment and Plan (1) Acute hyperkalemia: Status: Acute (2) ESRD (end stage renal disease): Status: Acute (3) Bradycardia: Status: Acute (4) Uncontrolled hypertension: Status: Acute (5) Acute encephalopathy: Status: Acute Assessment and Plan: 59-year-old non compliant female with end-stage renal disease who usually gets dialysis on Wednesday presented to ER with confusion and lethargy. She has not had dialysis on Wednesday.Patient was noted to have hyperkalemia, EKG with peaked T-waves confusion her ventricular rate in the emergency room was not in 30s with a blood pressure 150/74 patient treated with calcium gluconate, insulin glucose and bicarb and subsequently admitted to intensive care unit for emergent hemodialysis. Acute encephalopathy due to uremia and hyperkalemia now resolved after hemodialysis Hyperkalemia to have life-threatening level of potassium with EKG changes of widened QRS and peaked T-waves due to missing dialysis, potassium improved after hemodialysis. Nausea vomiting dry heaves /abdominal pain likely due to gastroparesis, use of narcotics including methadone gave Zofran with no relief in symptoms, will treat patient with IV Reglan and place her on a diabetic diet recommend small frequent meals continue supportive care, patient requesting for pain medication will give low-dose Dilaudid, since patient get hydromorphone by mouth at home. Bradycardia resolved likely due to due to hyperkalemia and high dose of beta-blockers heart rate now improved to 60s on high-dose Coreg at home, will start low-dose beta-blockers to avoid reflex tachycardia. Uncontrolled hypertension patient is on Coreg 25 mg b.i.d. and lisinopril will resume low-dose Coreg and lisinopril follow blood pressure closely, on midodrine 5 mg b.i.d. likely due to hypotension during hemodialysis days Diabetes mellitus patient on insulin sliding scale at home that will be continued will place patient on diabetic diet. End-stage renal disease on hemodialysis patient being followed with Nephrology, potassium normalized, acidosis improved further hemodialysis as per Nephro, continue sevelamer. Hyperlipidemia continue Lipitor On methadone question due to chronic pain will resume home dose Multiple dry skin scabs due to itching will place patient on Benadryl DVT prophylaxis was placed on heparin subQ b.i.d. Code status full code
[2020-09-21] MEDS: carvediloL 6.25 MG TABLET PO (15:39)
--- NOTE | 2020-09-21 15:44 | PC.NURSE ---
Patient refused heparin. Notified Doctor Day. No new orders at this time.
--- NOTE | 2020-09-21 15:45 | MHC.CM.PN ---
CM ATTEMPTED TO MEET WITH PT WHO WAS WITH NURSE. CM TO RETURN
[2020-09-21 16:25] LABS: Glucose, Whole Blood 182 mg/dL (60-115)
[2020-09-21] MEDS: HYDROmorphone HCl 0.5 MG/0.5 ML SYRINGE IVPUSH (16:29)
[2020-09-21] MEDS: Melatonin 3 MG TABLET 6 MG PO (20:47)
[2020-09-21] MEDS: bisacodyL 5 MG TABLET.DR PO (20:47)
[2020-09-21] MEDS: Atorvastatin Calcium 20 MG TABLET PO (20:47)
[2020-09-21] MEDS: Mirtazapine 15 MG TABLET 7.5 MG PO (20:48)
[2020-09-21] MEDS: Metoclopramide HCl 10 MG/2 ML VIAL 5 MG IV (20:55)
[2020-09-21 21:03] LABS: Glucose, Whole Blood 152 mg/dL (60-115)
[2020-09-22] VITALS (7 sets, daily range): BP systolic 111–183; BP diastolic 52–83; PULSE 57–80; RESP 16–20; TEMP 36.5–36.8; O2SAT 95–98
[2020-09-22] MEDS: HYDROmorphone HCl 0.5 MG/0.5 ML SYRINGE IVPUSH ×3 (02:14→21:53)
[2020-09-22] MEDS: amLODIPine Besylate 2.5 MG TABLET PO ×2 (02:14→09:11)
[2020-09-22] MEDS: diphenhydrAMINE HCL 50 MG/ML VIAL 25 MG IVPUSH ×4 (02:34→23:32)
[2020-09-22] MEDS: Heparin Sodium,Porcine 5,000 UNIT/ML VIAL 5000 UNIT SUBCUT ×2 (04:19→16:47)
[2020-09-22 07:43] LABS: Glucose, Whole Blood 101 mg/dL (60-115)
[2020-09-22] MEDS: Omeprazole 20 MG CAPSULE.DR PO (09:11)
[2020-09-22] MEDS: Metoclopramide HCl 10 MG/2 ML VIAL 5 MG IV (09:45)
--- NOTE | 2020-09-22 10:15 | HO.PM.IMPN ---
Subjective Subjective Date of Service: 09/22/20 Interval History: Patient complaining of abdominal pain requesting for 1 time dose of Dilaudid, also complaining of generalized itching,feels by mouth Benadryl does not work wants to be on IV Benadryl, nausea vomiting has improved, she feels she is not ready to be discharge patient currently is residing at rehab facility but was supposed to be discharged home with daughter yesterday but patient came to the emergency room for emergent hemodialysis. General no headache no dizziness no fever chills. CVS no chest pain, no palpitation. Respiratory no cough, no shortness of breath Gastrointestinal no nausea , no vomiting, abdominal pain Physical Exam Vital Signs: Vital Signs: Last Vital Signs Temp 97.7 F 09/22/20 07:19 Pulse 57 09/22/20 09:11 Resp 16 09/22/20 07:19 BP 116/52 L 09/22/20 09:11 Pulse Ox 95 09/22/20 07:19 Body Mass Index 25.0 General resting comfortably in bed, no distress, significant improvement since yesterday Neck supple no JVD. CVS regular rate rhythm, Respiratory lungs clear to auscultation, no respiratory distress Gastrointestinal abdomen soft, nontender, bowel sounds audible, no guarding , no rigidity, colostomy bag with brown liquidy stool. Extremities left BKA, right lower extremity no edema. 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, left hand ring finger also with gangrenous change Neuro nonfocal Skin multiple dry scabs throughout both upper and lower extremity, no drainage Objective Data Current Medications Generic Name Dose Route Start Last Admin Trade Name Osmarq PRN Reason Stop Dose Admin Acetaminophen 650 mg 09/21/20 08:54 Acetaminophen 325 Mg Tablet PO Q6H PRN Pain Amlodipine Besylate 2.5 mg 09/22/20 01:25 09/22/20 09:11 Amlodipine Besylate 2.5 Mg Tablet PO 2.5 mg DAILY JENIFER Administration Protocol Atorvastatin Calcium 20 mg 09/21/20 21:00 09/21/20 20:47 Atorvastatin Calcium 20 Mg Tablet PO 20 mg BEDTIME JENIFER Administration Bisacodyl 5 mg 09/21/20 21:00 09/21/20 20:47 Bisacodyl 5 Mg Tablet. PO 5 mg BEDTIME JENIFER Administration Diphenhydramine HCl 25 mg 09/21/20 10:02 09/22/20 09:15 Diphenhydramine Hcl 50 Mg/Ml Vial IVPUSH 25 mg Q6H PRN Administration itching Heparin Sodium (Porcine) 5,000 unit 09/21/20 16:00 09/22/20 04:19 Heparin Sodium,Porcine 5,000 Unit/Ml Vial SUBCUT 5,000 unit Q12H JENIFER Administration Hydromorphone HCl 0.5 mg 09/22/20 10:12 Hydromorphone Hcl 0.5 Mg/0.5 Ml Syringe IVPUSH 09/22/20 10:13 ONCE ONE Lisinopril 5 mg 09/21/20 15:00 09/22/20 09:11 Lisinopril 5 Mg Tablet PO 5 mg DAILY JENIFER Administration Protocol Melatonin 6 mg 09/21/20 14:08 09/21/20 20:47 Melatonin 3 Mg Tablet PO 6 mg BEDTIME PRN Administration Sleep Methadone HCl 20 mg 09/21/20 09:00 09/22/20 09:12 Methadone Hcl 1 Mg/0.1 Ml Oral.Conc PO 20 mg DAILY JENIFER Administration Metoclopramide HCl 5 mg 09/21/20 19:14 09/22/20 09:45 Metoclopramide Hcl 10 Mg/2 Ml Vial IV 5 mg Q8H PRN Administration Nausea Midodrine 5 mg 09/21/20 08:54 Midodrine Hcl 5 Mg Tablet PO BID PRN DIALYSIS Mirtazapine 7.5 mg 09/21/20 21:00 09/21/20 20:48 Mirtazapine 15 Mg Tablet PO 7.5 mg BEDTIME JENIFER Administration Omeprazole 20 mg 09/22/20 09:00 09/22/20 09:11 Omeprazole 20 Mg Capsule.Dr PO 20 mg DAILY JENIFER Administration Sevelamer HCl 800 mg 09/21/20 12:00 09/22/20 09:11 Sevelamer Hcl 800 Mg Tablet PO 800 mg TIDWM JENIFER Administration Labs CBC & Chem 7: 09/20/20 11:14 09/21/20 08:42 Microbiology Microbiology Results: Microbiology 09/20/20 11:21 Blood - Venous Blood Culture - Preliminary No growth after 24 hours. 09/20/20 11:19 Blood - Venous Blood Culture - Preliminary No growth after 24 hours. Assessment and Plan (1) Acute encephalopathy: Status: Acute (2) Uncontrolled hypertension: Status: Acute (3) Bradycardia: Status: Acute (4) Acute hyperkalemia: Status: Acute (5) Colon cancer: Status: Acute (6) ESRD (end stage renal disease): Status: Acute (7) Abdominal pain: Status: Acute (8) Itching: Status: Acute Assessment and Plan: 59-year-old non compliant female with end-stage renal disease who usually gets dialysis on Wednesday presented to ER with confusion and lethargy. She has not had dialysis on Wednesday.Patient was noted to have hyperkalemia, EKG with peaked T-waves confusion her ventricular rate in the emergency room was not in 30s with a blood pressure 150/74 patient treated with calcium gluconate, insulin glucose and bicarb and subsequently admitted to intensive care unit for emergent hemodialysis. Acute encephalopathy due to uremia and hyperkalemia now resolved after hemodialysis since all electrolyte abnormalities resolved Hyperkalemia to have life-threatening level of potassium with EKG changes of widened QRS and peaked T-waves due to missing dialysis, potassium normalized after hemodialysis. Nausea vomiting dry heaves /abdominal pain likely due to gastroparesis, use of narcotics including methadone Nausea vomiting resolved complaining of chronic abdominal pain with history of colon cancer status post colostomy, will give 1 dose of IV Dilaudid, recommended to take small frequent meals, continue IV Reglan,diabetic diet Bradycardia resolved likely due to due to hyperkalemia and high dose of Coreg 25 b.i.d. heart rate now improved to 60s , will resume Coreg 3.125 mg b.i.d. to avoid reflex tachycardia. Uncontrolled hypertension patient is on Coreg 25 mg b.i.d. and lisinopril 5 mg daily will resume low-dose Coreg and increase dose of lisinopril to 10 mg, Last night patient noted to have elevated blood pressure will discuss further management with Nephrology, follow blood pressure closely, patient noted to be on midodrine 5 mg b.i.d. as needed likely due to hypotension during hemodialysis days Diabetes mellitus patient on insulin sliding scale at home that will be continued will place patient on diabetic diet. Blood sugars stable around 100 End-stage renal disease on hemodialysis patient being followed with Nephrology, potassium normalized, acidosis improved further hemodialysis as per Nephro, continue sevelamer. Normally patient is dialyzed on Wednesdays and Fridays. Hyperlipidemia continue Lipitor On methadone question due to chronic pain will resume home dose Multiple dry skin scabs due to itching will place patient on Benadryl DVT prophylaxis was placed on heparin subQ b.i.d. Disposition will discuss with social Service regarding discharge plan since patient coming from a facility and was supposed to be discharged home. Code status full code
[2020-09-22 11:10] LABS: Glucose, Whole Blood 99 mg/dL (60-115)
--- NOTE | 2020-09-22 13:20 | MHC.CM.PN ---
CM met with pt this morning who reported she was sent from [facility]. Pt reports she plans to return to the SNF upon discharge. Pt reports she is supposed to be going to [place] for a procedure in the near future and hopes to get services arranged so that she can return home. Pt reports she does not have a HCP, a message was left for the SNF liaison to confirm this. Current DC plan is for pt to return to [facility] via BLS
--- NOTE | 2020-09-22 20:38 | PM.PNNEP ---
Subjective Subjective Date of Service: 09/22/20 Interval history: Events noted Physical Exam Vital Signs: Vital Signs: Last Vital Signs Temp 98.1 F 09/22/20 19:03 Pulse 80 09/22/20 19:03 Resp 20 09/22/20 19:03 BP 111/57 L 09/22/20 19:03 Pulse Ox 96 09/22/20 19:03 Body Mass Index 25.0 Const: General: confusion and tired appearing Orientation/consciousness: confusion Neck: Neck: Yes supple Resp: Auscultation: diminished lung sounds Cardio: Jugular venous distension: no JVD Rate: regular rate GI: Palpation (GI): Soft to palpation Auscultation: normal bowel sounds Neuro: General: confusion Motor exam (neuro): no asterixis Objective Data Labs CBC & Chem 7: 09/20/20 11:14 09/21/20 08:42 Labs: Laboratory Results - last 24 hr 09/21/20 09/22/20 09/22/20 21:00 07:39 11:07 POC Glucose 152 H 101 99 Microbiology Microbiology Results: Microbiology 09/20/20 11:21 Blood - Venous Blood Culture - Preliminary No growth after 48 hours. 09/20/20 11:19 Blood - Venous Blood Culture - Preliminary No growth after 48 hours. Assessment & Plan Assessment and plan (1) ESRD (end stage renal disease): Problem details: On HD TIW No s/s of uremia Status: Acute Time Spent With Patient Time: Total time spent is greater than 50% in coordination of care (as documented) at patient's floor/unit and/or counseling patient:
[2020-09-22] MEDS: Atorvastatin Calcium 20 MG TABLET PO (21:53)
[2020-09-22] MEDS: bisacodyL 5 MG TABLET.DR PO (21:53)
[2020-09-22] MEDS: Mirtazapine 15 MG TABLET 7.5 MG PO (21:53)
[2020-09-23] VITALS: BP 141/71; PULSE 61; RESP 18; TEMP 36.7; O2SAT 97
[2020-09-23] MEDS: Heparin Sodium,Porcine 5,000 UNIT/ML VIAL 5000 UNIT SUBCUT (03:48)
[2020-09-23 03:49] VITALS: BP 120/60; PULSE 78; RESP 20; TEMP 36.9; O2SAT 95
--- NOTE | 2020-09-23 04:29 | PC.NURSE ---
Ostomy dressing/bag replaced 0400, stool very watery and yellow in color. Stoma looks very large, but symmetrical and pink. No bleeding noted.
[2020-09-23 07:08] LABS: Glucose, Whole Blood 133 mg/dL (60-115)
[2020-09-23] MEDS: Omeprazole 20 MG CAPSULE.DR PO (07:19)
[2020-09-23] MEDS: diphenhydrAMINE HCL 50 MG/ML VIAL 25 MG IVPUSH ×2 (07:19→13:29)
[2020-09-23 07:41] VITALS: BP 154/80; PULSE 67; RESP 18; TEMP 36.4; O2SAT 98
[2020-09-23 09:11] VITALS: BP 90/58; PULSE 63
[2020-09-23] MEDS: Midodrine HCl 5 MG TABLET PO (09:11)
--- NOTE | 2020-09-23 10:27 | W.PM.DNNEP ---
Subjective Subjective This patient was seen during dialysis. Physical Exam Vital Signs: Vital Signs: Last Vital Signs Temp 97.6 F 09/23/20 07:41 Pulse 63 09/23/20 09:11 Resp 18 09/23/20 07:41 BP 90/58 L 09/23/20 09:11 Pulse Ox 98 09/23/20 07:41 Body Mass Index 25.0 Const: General: confusion and tired appearing Orientation/consciousness: confusion Neck: Neck: Yes supple Resp: Auscultation: diminished lung sounds Cardio: Jugular venous distension: no JVD Rate: regular rate GI: Palpation (GI): Soft to palpation Auscultation: normal bowel sounds Neuro: General: confusion Motor exam (neuro): no asterixis Assessment & Plan Assessment and plan (1) ESRD (end stage renal disease): Problem details: On HD TIW No s/s of uremia DC planning Status: Acute Time Spent With Patient Time: Total time spent is greater than 50% in coordination of care (as documented) at patient's floor/unit and/or counseling patient:
[2020-09-23 11:04] LABS: Glucose, Whole Blood 112 mg/dL (60-115)
[2020-09-23 12:00] VITALS: BP 138/73; PULSE 72; RESP 18; TEMP 36.7; O2SAT 98
--- NOTE | 2020-09-23 12:08 | MHC.CM.PN ---
DP return to [facility] via BLS. [facility] is in the process of getting authorization. has ordered a Covid test. CM will follow.
[2020-09-23 12:59] LABS: COVID-19 Test Negative (Negative); IDNOW Serial# 9DD0AD1C
--- NOTE | 2020-09-23 14:41 | PM.DS ---
DS: Providers Provider Date of Service: 09/23/20 Date of admission: 09/20/20 12:28 Primary care physician: Jonatan Jackson MD Consults: 09/20/20 15:39 Consult to Wound Care Provider Routine Consulting Provider: Jess Mc Reason for consultation: multiple wounds, diabetic heel DS: Diagnosis Discharge Diagnosis (1) ESRD (end stage renal disease): Status: Acute Problem details: On HD TIW No s/s of uremia DC planning DS: Medications Discharge Medications Home Medications: Home Medications Medication Instructions Recorded Confirmed B complex-vitamin C-folic acid 1 tab PO DAILY 09/20/20 09/20/20 [Nephro-Huan] acetaminophen 650 mg PO Q6H PRN 09/20/20 09/20/20 [id number] 1 ea PO DAILY 09/20/20 09/20/20 atorvastatin 20 mg PO BEDTIME 09/20/20 09/20/20 bisacodyl 5 mg PO BEDTIME 09/20/20 09/20/20 carvedilol 25 mg PO BID 09/20/20 09/20/20 cholecalciferol (vitamin D3) 1,250 mcg PO QWEEK 09/20/20 09/20/20 hydromorphone 2 mg PO Q4H PRN 09/20/20 09/20/20 insulin lispro [Admelog U-100 1 sliding scale dose SUBCUT 09/20/20 09/20/20 Insulin lispro] USEASDIRECTD lisinopril 5 mg PO DAILY 09/20/20 09/20/20 melatonin 5 mg PO BEDTIME PRN 09/20/20 09/20/20 methadone [Methadone Intensol] 20 mg PO DAILY 09/20/20 09/20/20 midodrine 5 mg PO BID PRN 09/20/20 09/20/20 mirtazapine [Remeron] 7.5 mg PO BEDTIME 09/20/20 09/20/20 pantoprazole [Protonix] 40 mg PO DAILY 09/20/20 09/20/20 sevelamer carbonate 800 mg PO TID 09/20/20 09/20/20 sodium polystyrene sulfonate 15 g PO YOU@1000 09/20/20 09/20/20 [Kayexalate] DS: Summary Hospital Course Hospital Course: HPI 59-year-old female with end-stage renal disease and poorly controlled hypertension. The patient tells us that she is dialyzed Wednesday, but missed her dialysis session this past Wednesday. On arrival to her dialysis center this morning, she was confused and lethargic, and was therefore not dialyzed, and sent here to the ED for evaluation. In the ED she was confused and unable to give a history. She was only able to give her name. She has a history of colon cancer and has an ostomy. She denied any coughing or congestion, feels weak. Initial vital signs in the ED showed a heart rate of 48, blood pressure 150/74, respiratory rate of 17, with a sat of high 100% on 3 L nasal cannula. Her heart rate dropped down into the 30s, but she was still hypertensive. Temperature was 97.2 degrees. EKG showed undetermined axis with widened QRS and peaked T-waves. She was given calcium gluconate, insulin, glucose, and bicarb. Labs were drawn, and she was referred urgently to the ICU for emergent dialysis. Labs from the ED came back as below. Notably, potassium is 10, BUN and creatinine 99/9.1, bicarb of 13, glucose of 230, Taylor 9.5, mildly elevated LFTs, albumin 3.2. COVID serology negative. In the ICU, heart rate was 60, blood pressure 158/63, breathing easy, with sat 100% on 3 L oxygen by nasal cannula. Temperature was 97.2 degrees. The patient is lethargic, but able to answer questions with vigorous prompting. She has about 3-4 cm JVD with the head of the bed at 30-40 degrees. Chest is clear to auscultation, with a normal expiratory phase. She has a PermCath. She has multiple lesions from scratching all over her body. She has an area of gangrene at the tip of one of the fingers on her left hand. 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 Hospital course 59-year-old female admitted with hyperkalemia, fluid overload and bradycardia, and toxic metabolic encephalopathy secondary to missed hemodialysis,patient was initially admitted to ICU, patient received emergent hemodialysis, hyperkalemia was resolved, for bradycardia Coreg was held, bradycardia resolved, encephalopathy was resolved, blood pressure improved and remained stable, patient was restarted on low-dose Coreg 3.125 mg b.i.d. on discharge, patient was stable discharged to short-term rehab, patient will resume hemodialysis as outpatient Time Spent with Patient Time attestation: Total time spent providing and/or coordinating discharge services: Discharge coordination time: Greater than 30 minutes Physical Exam Vital Signs: Vital Signs: Last Vital Signs Temp 98.0 F 09/23/20 12:00 Pulse 72 09/23/20 12:00 Resp 18 09/23/20 12:00 BP 138/73 09/23/20 12:00 Pulse Ox 98 09/23/20 12:00 Body Mass Index 25.0 DS: Data Data Completed and Pending Labs on day of discharge: Laboratory Tests 09/20/20 09/20/20 09/20/20 10:52 11:14 11:15 WBC 10.4 RBC 2.91 L Hgb 9.0 L Hct 30.8 L MCV 105.8 H MCH 30.9 MCHC 29.2 L RDW 19.3 H Plt Count 231 MPV 11.1 Immature Gran % (Auto) 0.9 H Neut % (Auto) 76.7 H Lymph % (Auto) 13.6 L [place] % (Auto) 7.4 Eos % (Auto) 1.0 Baso % (Auto) 0.4 Lymph # (Auto) 1.4 [place] # (Auto) 0.8 Eos # (Auto) 0.1 Baso # (Auto) 0.0 Abs Immat Gran (auto) 0.09 H Absolute Neuts (auto) 7.9 Absolute Nucleated RBC 0.120 H Nucleated RBC % (auto) 1.2 H Smear Tech's Comments VERIFIED PT 17.5 H INR 1.5 H VBG pH VBG pCO2 VBG pO2 VBG HCO3 VBG O2 Saturation VBG Base Excess Sodium Potassium Chloride Carbon Dioxide Anion Gap BUN Creatinine Estim Creat Clear Calc Estimated GFR POC Glucose 169 H Random Glucose Lactic Acid Calcium Phosphorus Magnesium Total Bilirubin Direct Bilirubin AST ALT Alkaline Phosphatase Ammonia Total Protein Albumin Coronavirus (PCR) COVID-19 ([facility]) COVID-19 Clin Com Influenza Type A (PCR) Influenza Type B (PCR) RSV RNA Qual (PCR) 09/20/20 09/20/20 09/20/20 11:15 11:19 11:44 WBC RBC Hgb Hct MCV MCH MCHC RDW Plt Count MPV Immature Gran % (Auto) Neut % (Auto) Lymph % (Auto) [place] % (Auto) Eos % (Auto) Baso % (Auto) Lymph # (Auto) [place] # (Auto) Eos # (Auto) Baso # (Auto) Abs Immat Gran (auto) Absolute Neuts (auto) Absolute Nucleated RBC Nucleated RBC % (auto) Smear Tech's Comments PT INR VBG pH VBG pCO2 VBG pO2 VBG HCO3 VBG O2 Saturation VBG Base Excess Sodium 130 L Potassium 10.0 H* Chloride 104 Carbon Dioxide 13 L Anion Gap 23 H BUN 99 H* Creatinine 9.16 H* Estim Creat Clear Calc 6.1 Estimated GFR 4 POC Glucose Random Glucose 230 H Lactic Acid 0.3 L Calcium 7.7 L Phosphorus 9.5 H Magnesium 2.2 Total Bilirubin 2.1 H Direct Bilirubin 1.9 H AST 56 H ALT 86 H Alkaline Phosphatase 1110 H Ammonia Total Protein 8.9 H Albumin 3.2 L Coronavirus (PCR) NEGATIVE COVID-19 ([facility]) COVID-19 Clin Com Influenza Type A (PCR) NEGATIVE Influenza Type B (PCR) NEGATIVE RSV RNA Qual (PCR) NEGATIVE 09/20/20 09/20/20 09/20/20 11:44 11:44 12:02 WBC RBC Hgb Hct MCV MCH MCHC RDW Plt Count MPV Immature Gran % (Auto) Neut % (Auto) Lymph % (Auto) [place] % (Auto) Eos % (Auto) Baso % (Auto) Lymph # (Auto) [place] # (Auto) Eos # (Auto) Baso # (Auto) Abs Immat Gran (auto) Absolute Neuts (auto) Absolute Nucleated RBC Nucleated RBC % (auto) Smear Tech's Comments PT INR VBG pH 7.17 L* VBG pCO2 37 VBG pO2 91 VBG HCO3 13 VBG O2 Saturation 93.0 VBG Base Excess -13.6 Sodium Potassium Chloride Carbon Dioxide Anion Gap BUN Creatinine Estim Creat Clear Calc Estimated GFR POC Glucose 215 H Random Glucose Lactic Acid Calcium Phosphorus Magnesium Total Bilirubin Direct Bilirubin AST ALT Alkaline Phosphatase Ammonia 35 Total Protein Albumin Coronavirus (PCR) COVID-19 ([facility]) COVID-19 Clin Com Influenza Type A (PCR) Influenza Type B (PCR) RSV RNA Qual (PCR) 09/20/20 09/20/20 09/21/20 12:36 13:32 07:04 WBC RBC Hgb Hct MCV MCH MCHC RDW Plt Count MPV Immature Gran % (Auto) Neut % (Auto) Lymph % (Auto) [place] % (Auto) Eos % (Auto) Baso % (Auto) Lymph # (Auto) [place] # (Auto) Eos # (Auto) Baso # (Auto) Abs Immat Gran (auto) Absolute Neuts (auto) Absolute Nucleated RBC Nucleated RBC % (auto) Smear Tech's Comments PT INR VBG pH VBG pCO2 VBG pO2 VBG HCO3 VBG O2 Saturation VBG Base Excess Sodium Potassium Chloride Carbon Dioxide Anion Gap BUN Creatinine Estim Creat Clear Calc Estimated GFR POC Glucose 254 H 245 H 90 Random Glucose Lactic Acid Calcium Phosphorus Magnesium Total Bilirubin Direct Bilirubin AST ALT Alkaline Phosphatase Ammonia Total Protein Albumin Coronavirus (PCR) COVID-19 (L[facility]) COVID-19 Clin Com Influenza Type A (PCR) Influenza Type B (PCR) RSV RNA Qual (PCR) 09/21/20 09/21/20 09/21/20 08:42 11:20 16:21 WBC RBC Hgb Hct MCV MCH MCHC RDW Plt Count MPV Immature Gran % (Auto) Neut % (Auto) Lymph % (Auto) [place] % (Auto) Eos % (Auto) Baso % (Auto) Lymph # (Auto) [place] # (Auto) Eos # (Auto) Baso # (Auto) Abs Immat Gran (auto) Absolute Neuts (auto) Absolute Nucleated RBC Nucleated RBC % (auto) Smear Tech's Comments PT INR VBG pH VBG pCO2 VBG pO2 VBG HCO3 VBG O2 Saturation VBG Base Excess Sodium 131 L Potassium 4.4 D Chloride 97 Carbon Dioxide 21 L Anion Gap 17 BUN 35 H D Creatinine 4.79 H* Estim Creat Clear Calc 11.8 Estimated GFR 9 POC Glucose 148 H 182 H Random Glucose 83 D Lactic Acid Calcium 8.0 L Phosphorus Magnesium Total Bilirubin Direct Bilirubin AST ALT Alkaline Phosphatase Ammonia Total Protein Albumin Coronavirus (PCR) COVID-19 ([facility]) COVID-19 Clin Com Influenza Type A (PCR) Influenza Type B (PCR) RSV RNA Qual (PCR) 09/21/20 09/22/20 09/22/20 21:00 07:39 11:07 WBC RBC Hgb Hct MCV MCH MCHC RDW Plt Count MPV Immature Gran % (Auto) Neut % (Auto) Lymph % (Auto) [place] % (Auto) Eos % (Auto) Baso % (Auto) Lymph # (Auto) [place] # (Auto) Eos # (Auto) Baso # (Auto) Abs Immat Gran (auto) Absolute Neuts (auto) Absolute Nucleated RBC Nucleated RBC % (auto) Smear Tech's Comments PT INR VBG pH VBG pCO2 VBG pO2 VBG HCO3 VBG O2 Saturation VBG Base Excess Sodium Potassium Chloride Carbon Dioxide Anion Gap BUN Creatinine Estim Creat Clear Calc Estimated GFR POC Glucose 152 H 101 99 Random Glucose Lactic Acid Calcium Phosphorus Magnesium Total Bilirubin Direct Bilirubin AST ALT Alkaline Phosphatase Ammonia Total Protein Albumin Coronavirus (PCR) COVID-19 ([facility]) COVID-19 Clin Com Influenza Type A (PCR) Influenza Type B (PCR) RSV RNA Qual (PCR) 09/23/20 09/23/20 09/23/20 07:05 11:01 11:20 WBC RBC Hgb Hct MCV MCH MCHC RDW Plt Count MPV Immature Gran % (Auto) Neut % (Auto) Lymph % (Auto) [place] % (Auto) Eos % (Auto) Baso % (Auto) Lymph # (Auto) [place] # (Auto) Eos # (Auto) Baso # (Auto) Abs Immat Gran (auto) Absolute Neuts (auto) Absolute Nucleated RBC Nucleated RBC % (auto) Smear Tech's Comments PT INR VBG pH VBG pCO2 VBG pO2 VBG HCO3 VBG O2 Saturation VBG Base Excess Sodium Potassium Chloride Carbon Dioxide Anion Gap BUN Creatinine Estim Creat Clear Calc Estimated GFR POC Glucose 133 H 112 Random Glucose Lactic Acid Calcium Phosphorus Magnesium Total Bilirubin Direct Bilirubin AST ALT Alkaline Phosphatase Ammonia Total Protein Albumin Coronavirus (PCR) COVID-19 (L[facility]) Negative COVID-19 Clin Com See Note Influenza Type A (PCR) Influenza Type B (PCR) RSV RNA Qual (PCR) Preliminary micro results at discharge 09/20/20 11:21 Blood Culture - Preliminary Blood - Venous No growth after 48 hours. 09/20/20 11:19 Blood Culture - Preliminary Blood - Venous No growth after 48 hours. Discharge Plan Discharge Anticipated Discharge Date/Time: 09/23/20 12:39 Patient Disposition: Xfer SNF Referrals: [facility] [Outside] Jonatan Jackson MD [Primary Care Provider] - Discharge Medications: New carvedilol [Coreg] 3.125 mg tablet 3.125 mg PO BID Qty: 60 RF: 0 Continued atorvastatin 20 mg Tablet 20 mg PO BEDTIME RF: 0 midodrine 5 mg Tablet 5 mg PO BID PRN (Reason: DIALYSIS) RF: 0 hydromorphone 2 mg Tablet 2 mg PO Q4H PRN (Reason: Pain (Scale Score 4-6)) RF: 0 pantoprazole [Protonix] 40 mg Tablet,Delayed Release (Dr/Ec) 40 mg PO DAILY RF: 0 Nephro-Huan 0.8 mg Tablet 1 tab PO DAILY RF: 0 lisinopril 5 mg Tablet 5 mg PO DAILY RF: 0 mirtazapine [Remeron] 15 mg Tablet 7.5 mg PO BEDTIME RF: 0 methadone [Methadone Intensol] 10 mg/mL Concentrate 20 mg PO DAILY RF: 0 insulin lispro [Admelog U-100 Insulin lispro] 100 unit/mL Solution 1 sliding scale dose SUBCUT USEASDIRECTD RF: 0 sodium polystyrene sulfonate Powder 15 g PO YOU@1000 RF: 0 bisacodyl 5 mg Tablet 5 mg PO BEDTIME RF: 0 acetaminophen 325 mg Capsule 650 mg PO Q6H PRN (Reason: Pain) RF: 0 sevelamer carbonate 800 mg Tablet 800 mg PO TID RF: 0 melatonin 5 mg Tablet 5 mg PO BEDTIME PRN (Reason: Sleep) RF: 0 cholecalciferol (vitamin D3) 1,250 mcg (50,000 unit) Tablet 1,250 mcg PO QWEEK RF: 0 [id number]-stlt-[id number]-[id number]-[id number]-uix 7-7-1.5 gram Powder In Packet 1 ea PO DAILY RF: 0 Discontinued carvedilol 25 mg Tablet 25 mg PO BID RF: 0 Discharge Orders: Discharge Order (Routine); Ordered 09/23/20 Ordered By: Olu Owens Diet: low salt diet Activity on Discharge: As tolerated Stand Alone Forms: Patient Portal Discharge page Health Concerns: see above Plan of Treatment: see above
--- NOTE | 2020-09-23 15:42 | MHC.CM.PN ---
VERÓNICA informed this pt had been set up to return to [facility] SNF pending insurance auth however now indicates she wants to go to her daughters home. CM informed the daughter had called and said she would discuss this further with her mother and then call back. this CM has tried to call pts daughter twice to discuss this and she has not answered. A VM was left requesting a return call. Pt requires extensive assistance with all care and has multiple medical problems. it is unclear at this time if her daughters home would be a viable DC plan since there is no home care available to start immediately. Pt may need to return to SNF while making arrangements for home care.
--- NOTE | 2020-09-23 16:01 | MHC.CM.PN ---
Pt stating she is going to her daughters home. CM has attempted to contact pts daughter several times ([phone]) and left a VM message requesting a return call and informing her this is not a safe DC plan. Pt reports she is going and is not interested in talking about it. Pt reports she is 59 yo, not a kid. Pt is a dialysis pt but refuses to discuss where she goes or how she will get to her next session. Pt reports her daughter and are CNAs and they will care for her at home. Pt reports she already has a wheel chair at home and does not need anything. Pt refuses to discuss the discharge further and reports she does not care when CM expresses concern that it is unsafe. Pt reports she is not staying and she is not going to the SNF and says she will sign out against medical advice. Pt states her daughter is here and she is leaving now. MD informed and reported agreement that this is not a safe DC plan. Pt signing out AMA daughter is here to transport
--- NOTE | 2020-09-23 16:27 | PC.NURSE ---
Patient's daughter came to unit to excelsior picker patient. Education provided on visitor restriction. Patient states she still wishes to leave. MD went to speak with patient and daughter. Patient pulled off folder inspector, pulled out IV and was throwing things into the hallway. Client Engagement Specialist notified. Patient signed out AMA.
== END 2020-09-23 16:26 | disposition left against medical advice (07) | DRG 470 ==
LOC: HO.ED 12:42 → HO.ICU 12:47 → HO.IMC 18:49
PROVIDERS: Hospitalist; Internal Medicine Hypertension Specialist; Admitting Provider Anesthesiology; Emergency Provider Emergency Medicine Emergency Medical Services; PCP Family Medicine; Visit Provider Internal Medicine
DX: I12.0 Hypertensive chronic kidney disease with stage 5 chronic kidney disease or end stage renal disease (principal); G92 Toxic encephalopathy; E11.22 Type 2 diabetes mellitus with diabetic chronic kidney disease; E11.52 Type 2 diabetes mellitus with diabetic peripheral angiopathy with gangrene; K31.84 Gastroparesis; E87.5 Hyperkalemia; E11.43 Type 2 diabetes mellitus with diabetic autonomic (poly)neuropathy; G89.29 Other chronic pain; N18.6 End stage renal disease; Z20.822 Contact with and (suspected) exposure to COVID-19; R00.1 Bradycardia, unspecified; Z99.2 Dependence on renal dialysis; Z93.3 Colostomy status; Z85.038 Personal history of other malignant neoplasm of large intestine; Z89.512 Acquired absence of left leg below knee; Z91.15 Patient's noncompliance with renal dialysis; Z88.0 Allergy status to penicillin; Z79.4 Long term (current) use of insulin; Z79.891 Long term (current) use of opiate analgesic; Z79.899 Other long term (current) drug therapy
CPT/HCPCS: 0241U; 36415; 71045; 80048; 80076; 82140; 82803; 82947; 83605; 83735; 84100; 85025; 85610; 87040; 87635; 90999; 93005; 96365; 96366; 96367; 96375; 99283; 99291; 99292; J0461; J0610; J1170; J1200; J2405; J2765

== ENCOUNTER 2020-11-15 14:29 | Emergency (ER) | payer OTHER, SELFPAY ==
[2020-11-15 14:43] VITALS: BP 102/60; BP 132/66; PULSE 70; PULSE 84; RESP 18; TEMP 36.8; O2SAT 97; BMI 17.5
[2020-11-15 16:00] VITALS: BP 104/61; PULSE 77; RESP 17; TEMP 36.8; O2SAT 97
[2020-11-15 16:53] LABS: MANUAL DIFF FLAG NO
[2020-11-15] MEDS: 0.9 % Sodium Chloride 500 ML IV (16:54)
[2020-11-15] MEDS: ondansetron HCL 4 MG/2 ML VIAL IVPUSH (16:54)
[2020-11-15] MEDS: Morphine Sulfate 4 MG/ML CARTRIDGE IVPUSH (16:54)
[2020-11-15 16:58] LABS: Basophils Percent Auto 0.3 % (0-2); Eosinophils Percent Auto 0.2 % (0-4); Hematocrit 28.3 % (37-47); Hemoglobin 8.5 g/dl (12.0-16.0); Imm Gran Abs Auto 0.11 X10*3/uL (0.00-0.03); Imm Gran Pct Auto 0.9 % (0.0-0.4); Lymphocytes Absolute Auto 2.1 X10*3/uL (1.2-4.9); Lymphocytes Percent Auto 16.7 % (20-40); Mean Corpuscular Hemoglobin 31.3 pg (27.0-33.0); Mean Platelet Volume 10.3 fL (9.4-12.3); Monocytes Absolute Auto 1.2 X10*3/uL (0.1-1.2); Monocytes Percent Auto 9.4 % (2-11); NRBC Pct Auto 0.3 /100WBC (0.0-0.2); Neutrophils Absolute Auto 9.1 X10*3/uL (2.0-8.3); Neutrophils Percent Auto 72.5 % (45-73); Platelet Count 225 X10*3/uL (160-400); Red Blood Count 2.72 X10*6/uL (4.20-5.50); Red Cell Distribution Width 18.9 % (11.0-16.0); White Blood Count 12.6 X10*3/uL (4.8-10.8)
[2020-11-15 17:04] LABS: INTERNATIONAL NORM RATIO 1.4 (0.9-1.1); Prothrombin Time 16.6 SEC (10.8-13.0)
--- NOTE | 2020-11-15 17:04 | PC.NURSE ---
patient refusing second set of cultures and to have CT scan done. medicated for rod, told RN that the syringe morphine was mixed in with NS was only water and she was not feeling the pain medication. patient now quiet and not moaning in pain.
--- NOTE | 2020-11-15 17:05 | PC.NURSE ---
PER NITRIC ACID PLANT OPERATOR NATALIA SAID NOT TO GET PATIENT SECOND SET OF CULTURE PATIENT REFUSED .
--- NOTE | 2020-11-15 17:08 | PC.NURSE ---
attempted to contact daughter regarding patient care. daughters phone line busy at this time.
[2020-11-15 17:22] LABS: Lactic Acid 1.5 mmol/L (0.5-2.0)
[2020-11-15 18:00] LABS: Alanine Aminotransferase 27 U/L (0-31); Albumin Level 2.6 g/dL (3.5-5.0); Alkaline Phosphatase 989 U/L (39-117); Anion Gap 17 (12-20); Aspartate Amino Transferase 71 U/L (5-31); Bilirubin Total 5.3 mg/dL (0.0-1.0); Blood Urea Nitrogen 36 mg/dL (9-16); Calcium 7.6 mg/dL (8.4-10.2); Carbon Dioxide 26 mmol/L (22-29); Chloride 95 mmol/L (96-108); Creatinine Clr Calc Pharmacy 9.9; Estimated Glomerular Filt Rate 9; Glucose Random 165 mg/dL (60-115); Potassium 5.4 mmol/L (3.3-5.1); Sodium 133 mmol/L (135-145); Total Protein 7.8 g/dL (6.5-8.0)
--- NOTE | 2020-11-15 18:16 | ED_ITS ---
HPI - General Adult General Chief complaint: General Medical Stated complaint: bed sores Time Seen by Provider: 11/15/20 14:52 Source: EMS Mode of arrival: EMS Limitations: no limitations History of Present Illness HPI narrative: 59-year-old female with below noted past medical history including history of end-stage renal disease on HD being followed by Dr. Levy as well as severe peripheral vascular disease and chronic pressure ulcers she was at dialysis today and midway through her dialysis she has complained of pain on her coccyx area where she has a known coccyx pressure ulcer and refuse remainder of her dialysis and was transferred to emergency room for her pain. Upon arrival states she has pain in her coccyx otherwise denies any other complaints. Onset (ago): day(s) Radiation: non-radiation Severity: moderate Quality: aching Pain Consistency: constant Relieving factors: none Exacerbating factors: none Associated symptoms: denies other symptoms Treatments prior to arrival: none Related Data Home Medications Medication Instructions Recorded Confirmed Nephro-Huan 1 tab PO DAILY 09/20/20 09/20/20 acetaminophen 650 mg PO Q6H PRN 09/20/20 09/20/20 [id number] 1 ea PO DAILY 09/20/20 09/20/20 atorvastatin 20 mg PO BEDTIME 09/20/20 09/20/20 bisacodyl 5 mg PO BEDTIME 09/20/20 09/20/20 cholecalciferol (vitamin D3) 1,250 mcg PO QWEEK 09/20/20 09/20/20 hydromorphone 2 mg PO Q4H PRN 09/20/20 09/20/20 insulin lispro [Admelog U-100 1 sliding scale dose SUBCUT 09/20/20 09/20/20 Insulin lispro] USEASDIRECTD lisinopril 5 mg PO DAILY 09/20/20 09/20/20 melatonin 5 mg PO BEDTIME PRN 09/20/20 09/20/20 methadone [Methadone Intensol] 20 mg PO DAILY 09/20/20 09/20/20 midodrine 5 mg PO BID PRN 09/20/20 09/20/20 mirtazapine [Remeron] 7.5 mg PO BEDTIME 09/20/20 09/20/20 pantoprazole [Protonix] 40 mg PO DAILY 09/20/20 09/20/20 sevelamer carbonate 800 mg PO TID 09/20/20 09/20/20 sodium polystyrene sulfonate 15 g PO YOU@1000 09/20/20 09/20/20 Previous Rx's Medication Instructions Recorded carvedilol [Coreg] 3.125 mg PO BID #60 tab 09/23/20 Allergies Allergy/AdvReac Type Severity Reaction Status Date / Time Penicillins [PENICILLINS] Allergy Unknown Rash Verified 09/21/20 11:45 Review of Systems Review of Systems: Constitutional: No Weight loss, No Fever, No Chills, No Night Sweats, No Fatigue, No Malaise ENT/Mouth: No Hearing loss, No Ear Pain, No Nasal Congestion, No Sinus Pain, No Hoarseness, No sore throat, No Rhinorrhea, No Swallowing Difficulty Eyes: No Eye Pain, No Swelling, No Redness, No Foreign Body, No Discharge, No Vision Changes Cardiovascular: No Chest Pain, No SOB, No Dyspnea on Exertion, No Orthopnea, No Edema, No Palpitations Respiratory: No Cough, No Sputum, No Wheezing, No Dyspnea Gastrointestinal: No Nausea, No Vomiting, No Diarrhea, No Constipation, No abdominal Pain, No Hematochezia, No Melena Genitourinary: No Dysuria, No Urinary Frequency, No Hematuria, No Urinary Incon tinence, No Urgency, No Flank Pain, No Urinary Flow Changes, No Hesitancy Musculoskeletal: No joint pain, No Myalgias, No Joint Swelling Skin: No Skin Lesions, No rash Neuro: No Weakness, No Numbness, No Paresthesias, No Loss of Consciousness, No Dizziness, No Headache Psych: No Social Issues Heme/Lymph: No Bruising, No Bleeding,No Lymphadenopathy Endocrine: No Polyuria, No Polydipsia, No Temperature Intolerance Yes all other systems are reviewed and are negative [facility] Past Medical History Medical History (Updated 11/15/20 @ 19:41 by Jr Chang NP) Dialysis patient Oxygen dependent Poor historian Renal failure Surgical History (Updated 11/15/20 @ 14:48 by Ly Newman) Surgical history unknown Social History Social History Household Members: Other Housing: [facility] Smoking Status: Smoker, status unknown Advance Directives: No Advance Directives Information Provided: Yes service: No Current occupational status: unemployed and disabled Physical Exam Vital Signs: Vital Signs: Last Vital Signs Temp 98.2 F 11/15/20 16:00 Pulse 77 11/15/20 16:00 Resp 17 11/15/20 16:00 BP 104/61 11/15/20 16:00 Pulse Ox 97 11/15/20 16:00 Body Mass Index 17.5 Reviewed Const: Other: Appears much older than stated age General: cooperative and ill appearing; No acute distress Nutritional Appearance: thin Orientation/consciousness: patient oriented x3 HENMT: Head: Yes normal to inspection Ears: hearing grossly normal bilaterally Eyes: General: appearance normal, both eyes and all related structures Visual Nogueira: normal visual nogueira by confrontation Neck: Neck: Yes normal visual inspection, No positive Brudzinski's sign, No positive Kernig's sign and No tender Thyroid: Thyroid normal Chest: Other: Right-sided chest with HD port Chest palpation & inspection: normal inspection of the chest Resp: Effort & Inspection: normal respiratory effort Cardio: Jugular venous distension: no JVD Rhythm: regular rhythm Heart sounds: S1 normal heart sound present and S2 normal heart sound present GI: Other: Ostomy with fecal matter, greenish soft Inspection: Yes normal to inspection Percussion: Yes normal to percussion Auscultation: normal bowel sounds : General: Yes no CVA tenderness Back/Spine/Pelvis: Back: no CVA tenderness Back/spine/pelvis image: 1. Multiple areas of unstageable coccyx ulcers. Mostly cover with very elated tissue. 2. No signs of acute infection, erythema, induration, discharge. 3. Skin: General skin exam: no rashes or lesions noted Neuro: General: patient oriented x3 Extrem: General: Yes normal to inspection Course Reevaluation(s) Reevaluation #1: Patient extremely poor historian and her own barrier to her care as she is being very resistant to treatment plan here. Having increased pain just had dialysis would like to check labs and given the increased pain over the unstageable coccyx ulcers which apparently are not new for her she has declined imaging for rule out osteo and evaluation of extent of these. She was finally convinced to have blood work and IV placed she is more focused on IV narcotics than anything else. She does have history of opiate dependence in the past with abuse. She came with transport summary from [facility] Has son's name as well as healthcare proxy son Jacoby and jaw well and the daughter Viv [phone] Dariel [phone] RN as well as myself cough attempt to call no answer. Unsure what facility she is currently residing at she had a prior admission here in September 20 2020 for symptomatic hyperkalemia and requiring HD. Consultations Consultation #2: Spoke to Himanshu Lewis at [facility] to assess more with a history as patient Admitted there with month or so ago usually goes to [facility] History of a fragmented care Has coded several times in the past couple of weeks at [facility] States she was at [facility] last night as well for pain and return to facility last night with prescription of oxycodone however they did not get the pharmacy delivery yet. Is resistant to care History of signing out against medical advice according to socially responsible investment adviser Is refusing all workup here Okay only with pain medicine Family not much of a help I had to call several different family members and goal address of facility in order to get the number because they did know where she was. I spoke to son Jairo as well as Dariel who is the healthcare proxy After a 10 minutes conversation with him on the phone he states that she has a history of this and he would like to talk to her however as soon as we transfer call to a portable phone and gave her the phone she hung up with Jeffry saying heljean-paul. Consultation #3: I spoke to the son Jacoby who is listed as her healthcare proxy given her poor state of health and her chronicity he states to me that she has also has a history of colon cancer and she was told that she was going to within couple of months and that was 6 months ago and she has been diarrhea. States she is always like this she is very difficult and always declines t hings and he does think he can convince her. I did have a conversation regarding her current state of health and overall health given her extensive diagnosis of end-stage renal disease chronic wounds, including left lower extremity amputation and being bed-bound and having new ulcerations the quality of care and code status. A had a lengthy conversation with him states he knows what a code status is and he would like to keep her as full code as it relates to today states he does not think convince her and given that she is declining anything I have no choice but to let her return back to [facility] [place] with understanding that her symptoms can and get worse I am not sure why she is having so much back pain and underlying infection needs to be ruled out however he is declining this. States he understands as her healthcare proxy and decision maker she has a right to refuse and okay with her going back. Medical Decision Making Lab Data Result diagrams: 11/15/20 16:47 11/15/20 16:47 Labs: Lab Results 11/15/20 11/15/20 11/15/20 Range/Units 16:47 16:47 16:47 WBC 12.6 H (4.8-10.8) X10*3/uL RBC 2.72 L (4.20-5.50) X10*6/uL Hgb 8.5 L (12.0-16.0) g/dl Hct 28.3 L (37-47) % MCV 104.0 H (80-98) fL MCH 31.3 (27.0-33.0) pg MCHC 30.0 L (31.0-35.0) g/dl RDW 18.9 H (11.0-16.0) % Plt Count 225 (160-400) X10*3/uL MPV 10.3 (9.4-12.3) fL Immature Gran % (Auto) 0.9 H (0.0-0.4) % Neut % (Auto) 72.5 (45-73) % Lymph % (Auto) 16.7 L (20-40) % [place] % (Auto) 9.4 (2-11) % Eos % (Auto) 0.2 (0-4) % Baso % (Auto) 0.3 (0-2) % Lymph # (Auto) 2.1 (1.2-4.9) X10*3/uL [place] # (Auto) 1.2 (0.1-1.2) X10*3/uL Eos # (Auto) 0.0 (0.0-0.4) X10*3/uL Baso # (Auto) 0.0 (0.0-0.2) X10*3/uL Abs Immat Gran (auto) 0.11 H (0.00-0.03) X10*3/uL Absolute Neuts (auto) 9.1 H (2.0-8.3) X10*3/uL Absolute Nucleated RBC 0.040 H (0.0-0.012) X10*3/uL Nucleated RBC % (auto) 0.3 H (0.0-0.2) /100WBC PT 16.6 H (10.8-13.0) SEC INR 1.4 H (0.9-1.1) APTT 42.0 H (24.1-38.0) SEC Sodium 133 L (135-145) mmol/L Potassium 5.4 H D (3.3-5.1) mmol/L Chloride 95 L (96-108) mmol/L Carbon Dioxide 26 (22-29) mmol/L Anion Gap 17 (12-20) BUN 36 H (9-16) mg/dL Creatinine 4.90 H* (0.5-1.4) mg/dL Estim Creat Clear Calc 9.9 Estimated GFR 9 Random Glucose 165 H D (60-115) mg/dL Lactic Acid (0.5-2.0) mmol/L Calcium 7.6 L (8.4-10.2) mg/dL Total Bilirubin 5.3 H (0.0-1.0) mg/dL AST 71 H (5-31) U/L ALT 27 (0-31) U/L Alkaline Phosphatase 989 H (39-117) U/L Total Protein 7.8 (6.5-8.0) g/dL Albumin 2.6 L (3.5-5.0) g/dL 11/15/20 Range/Units 16:47 WBC (4.8-10.8) X10*3/uL RBC (4.20-5.50) X10*6/uL Hgb (12.0-16.0) g/dl Hct (37-47) % MCV (80-98) fL MCH (27.0-33.0) pg MCHC (31.0-35.0) g/dl RDW (11.0-16.0) % Plt Count (160-400) X10*3/uL MPV (9.4-12.3) fL Immature Gran % (Auto) (0.0-0.4) % Neut % (Auto) (45-73) % Lymph % (Auto) (20-40) % [place] % (Auto) (2-11) % Eos % (Auto) (0-4) % Baso % (Auto) (0-2) % Lymph # (Auto) (1.2-4.9) X10*3/uL [place] # (Auto) (0.1-1.2) X10*3/uL Eos # (Auto) (0.0-0.4) X10*3/uL Baso # (Auto) (0.0-0.2) X10*3/uL Abs Immat Gran (auto) (0.00-0.03) X10*3/uL Absolute Neuts (auto) (2.0-8.3) X10*3/uL Absolute Nucleated RBC (0.0-0.012) X10*3/uL Nucleated RBC % (auto) (0.0-0.2) /100WBC PT (10.8-13.0) SEC INR (0.9-1.1) APTT (24.1-38.0) SEC Sodium (135-145) mmol/L Potassium (3.3-5.1) mmol/L Chloride (96-108) mmol/L Carbon Dioxide (22-29) mmol/L Anion Gap (12-20) BUN (9-16) mg/dL Creatinine (0.5-1.4) mg/dL Estim Creat Clear Calc Estimated GFR Random Glucose (60-115) mg/dL Lactic Acid 1.5 (0.5-2.0) mmol/L Calcium (8.4-10.2) mg/dL Total Bilirubin (0.0-1.0) mg/dL AST (5-31) U/L ALT (0-31) U/L Alkaline Phosphatase (39-117) U/L Total Protein (6.5-8.0) g/dL Albumin (3.5-5.0) g/dL Discharge Plan Discharge Clinical Impression: ESRD (end stage renal disease), Pressure ulcer of coccygeal region, Chronic coccygeal pain Patient Disposition: Xfer [facility] Instructions: Against Medical Advice (ED) Prescriptions: No Action atorvastatin 20 mg Tablet 20 mg PO BEDTIME RF: 0 midodrine 5 mg Tablet 5 mg PO BID PRN (Reason: DIALYSIS) RF: 0 hydromorphone 2 mg Tablet 2 mg PO Q4H PRN (Reason: Pain (Scale Score 4-6)) RF: 0 pantoprazole [Protonix] 40 mg Tablet,Delayed Release (Dr/Ec) 40 mg PO DAILY RF: 0 Nephro-Huan 0.8 mg Tablet 1 tab PO DAILY RF: 0 lisinopril 5 mg Tablet 5 mg PO DAILY RF: 0 mirtazapine [Remeron] 15 mg Tablet 7.5 mg PO BEDTIME RF: 0 methadone [Methadone Intensol] 10 mg/mL Concentrate 20 mg PO DAILY RF: 0 insulin lispro [Admelog U-100 Insulin lispro] 100 unit/mL Solution 1 sliding scale dose SUBCUT USEASDIRECTD RF: 0 sodium polystyrene sulfonate Powder 15 g PO YOU@1000 RF: 0 bisacodyl 5 mg Tablet 5 mg PO BEDTIME RF: 0 acetaminophen 325 mg Capsule 650 mg PO Q6H PRN (Reason: Pain) RF: 0 sevelamer carbonate 800 mg Tablet 800 mg PO TID RF: 0 melatonin 5 mg Tablet 5 mg PO BEDTIME PRN (Reason: Sleep) RF: 0 cholecalciferol (vitamin D3) 1,250 mcg (50,000 unit) Tablet 1,250 mcg PO QWEEK RF: 0 [id number] 7-7-1.5 gram Powder In Packet 1 ea PO DAILY RF: 0 carvedilol [Coreg] 3.125 mg tablet 3.125 mg PO BID Qty: 60 RF: 0
[2020-11-15] MEDS: oxyCODONE HCl Immed Release 5 MG TABLET 10 MG PO (18:33)
--- NOTE | 2020-11-16 07:42 | ECG_ITS ---
Test Reason : CHEST PAIN Blood Pressure : / mmHG Vent. Rate : 082 BPM Atrial Rate : 082 BPM P-R Int : 142 ms QRS Dur : 090 ms QT Int : 438 ms P-R-T Axes : 052 -11 058 degrees QTc Int : 511 ms Normal sinus rhythm Nonspecific ST and T wave abnormality Prolonged QT Abnormal ECG When compared to the previous EKG of NSR has replaced junctional rhythm Referred By: Lisa Noyola Electronically Signed By:Gabriele Kay
== END 2020-11-15 20:11 | disposition skilled nursing facility (03) ==
PROVIDERS: Nurse Practitioner Primary Care; Emergency Provider Emergency Medicine
DX: L89.159 Pressure ulcer of sacral region, unspecified stage (principal); N18.6 End stage renal disease; Z99.2 Dependence on renal dialysis; M53.3 Sacrococcygeal disorders, not elsewhere classified; F11.21 Opioid dependence, in remission; Z85.038 Personal history of other malignant neoplasm of large intestine; Z99.81 Dependence on supplemental oxygen
CPT/HCPCS: 36415; 80053; 83605; 85025; 85610; 85730; 87040; 93005; 96361; 96374; 96375; 99283; 99285; J2270; J2405

== ENCOUNTER 2020-12-11 13:45 | Inpatient (IN) | payer OTHER, SELFPAY ==
[2020-12-11] VITALS (15 sets, daily range): BP systolic 70–116; BP diastolic 35–61; PULSE 50–87; RESP 12–14; TEMP 34.6; O2SAT 98–100; BMI 20.5
--- NOTE | ~2020-12-11 | CT_ITS ---
EXAMINATION: CT HEAD WITHOUT CONTRAST CLINICAL INFORMATION: Fatigue. COMPARISON: None TECHNIQUE: Contiguous axial imaging was performed from the skull base to vertex without intravenous administration of contrast. This CT examination was performed using dose optimization techniques as appropriate, variously including the following: *Automated exposure control. *Adjustment of mA and/or kV according to patient size (this includes techniques or standardized protocols for targeted exams where dose is matched to indication/reason for exam; i.e. extremities or head). *Use of iterative reconstruction technique. DLP: 583 mGy-cm FINDINGS: There is no evidence of acute intracranial hemorrhage or territorial infarction. No abnormal mass effect or midline shift is seen. Rqhi-lx-ujalm matter differentiation is well preserved. No extra-axial fluid collections are identified. The ventricles are normal in size. There is no abnormal attenuation within the brain parenchyma. The osseous structures and soft tissues are normal. The mastoid air cells and visualized portions of the paranasal sinuses are well aerated. CT/CT head/brain wo con IMPRESSION: No CT evidence of acute intracranial pathology.
--- NOTE | ~2020-12-11 | XR_ITS ---
EXAMINATION: XR CHEST CLINICAL INFORMATION: Central line placement COMPARISON: December 11, 2020 TECHNIQUE: AP portable view of the chest was obtained. FINDINGS: Since previous study a left internal jugular central venous catheter has been placed with tip in the location junctions of the left innominate vein and superior vena cava. There is a curvilinear line about the upper lateral aspect of the left hemithorax but which appears be related to skin fold rather than pneumothorax. Repeat study would be of help in definitely determining this. The internal jugular puncture site appears to be significantly higher than the lung apex and pneumothorax from this would seem unlikely. There is some discoid atelectasis at the left base. There is a large later today bore right internal jugular dialysis catheter in place with tip in the superior right atrium. Cardiac pericardial silhouette is mildly enlarged. No evidence of pulmonary edema. Left arm midline catheter seen with tip in the region of the junctions of the basilic and axillary veins. There appears to be a left eighth rib fracture laterally. There also may be nondisplaced fractures of the sixth and seventh ribs. XR/XR chest 1V IMPRESSION: New left internal jugular central venous catheter with tip at the junctions of the innominate and superior vena cava. Curvilinear density about the left hemithorax likely related to skinfold however pneumothorax cannot be definitely ruled out. Would recommend a follow-up chest x-ray later today if patient is not symptomatic. Appearance of acute left rib fractures as noted above. Review of CT scan of December 11, 2020 demonstrates multiple left-sided rib fractures involving the third through seventh ribs. This critical result was discussed with Dr. Ruelas at 9:00 AM on December 12, 2020 and it was ascertained that the content and urgency of the report was understood at the time of direct communication.
--- NOTE | ~2020-12-11 | XR_ITS ---
EXAMINATION: XR CHEST CLINICAL INFORMATION: Assess point COMPARISON: September 20, 2020 TECHNIQUE: AP portable view of the chest was obtained. FINDINGS: No confluent parenchymal disease identified. There is some atelectatic change seen at the left base. There appears to be some redistribution of vasculature which may relate to pulmonary vascular congestion. No definite interstitial or airspace edema is seen. No pneumothorax or significant pleural effusion. The cardiopericardial silhouette is mildly enlarged. Right internal jugular dialysis catheter seen in place with tip in the region of the upper right atrium. A left upper extremity midline catheter is seen with its tip in the expected location of the confluence of the basilic and axillary veins. XR/XR chest 1V IMPRESSION: No confluent parenchymal disease. Dialysis catheter and left upper extremity midline catheter in place as described.
--- NOTE | ~2020-12-11 | CT_ITS ---
EXAMINATION: CT CHEST, ABDOMEN AND PELVIS WITHOUT CONTRAST CLINICAL INFORMATION: Question pneumonia. Question coccyx osteomyelitis. Question abdominal etiology. COMPARISON: CT abdomen 01/25/2017. TECHNIQUE: Multidetector volumetric imaging was performed from the thoracic inlet through the pubic symphysis without contrast. Sagittal and coronal reformatted images were obtained on the technologist workstation. This CT examination was performed using dose optimization techniques as appropriate, variously including the following: *Automated exposure control. *Adjustment of mA and/or kV according to patient size (this includes techniques or standardized protocols for targeted exams where dose is matched to indication/reason for exam; i.e. extremities or head). *Use of iterative reconstruction technique. Total exam dose-length product 639 mGy-cm. FINDINGS: CHEST: Lung: Respiratory motion artifact limiting evaluation. Multifocal airspace opacities, with linear opacities, peribronchial thickening in the left lower lobe. Findings to a lesser degree in the right lower lobe. This may reflect infectious or inflammatory process. Mild streaky opacities in the posterior aspect of the right upper lobe and the lingula. A 3 mm nodule right upper lobe 7:163. A 5 mm nodule right middle lobe 7:253 No focal consolidation, nodules or masses. Pleura: No pleural effusion or pneumothorax. Mediastinum: Thyroid gland appears unremarkable. Right paratracheal 0.9 cm lymph node. No definite hilar lymphadenopathy seen. Ascending aorta measures 3 cm. Mildly enlarged heart. Coronary artery calcification. No pericardial effusion. Right-sided central line in the region of the right atrium. Chest Wall/Axilla: No axillary or internal mammary lymphadenopathy. ABDOMEN/PELVIS: Liver, Gallbladder and Biliary Tree: Right lobe of the liver measures 18.9 cm craniocaudal. No focal lesion seen. No biliary duct dilatation. Gallbladder is surgically absent. Pancreas: Atrophic pancreas. No acute inflammatory changes seen. Spleen: Spleen measures 17.8 cm. Adrenal Glands: Unremarkable Kidneys and Ureters: Bilateral kidneys are atrophic. There is extensive vascular calcification. No ureteral calculi or hydronephrosis seen. Gastrointestinal Tract: Apparent wall thickening of the stomach, which could be related to lack of distention versus gastritis. There is a colostomy in the right lower quadrant. The large colon is nondistended. Apparent wall thickening of the rectum and rectosigmoid. Proctitis cannot be excluded. There is a loop of small bowel extending through the right lower quadrant ileostomy site. No dilated small bowel loops are seen. There is nonspecific prominent haziness in the mesentery. Small free fluid in the pelvis. There is a haziness in the subcutaneous tissue probably representing anasarca in the abdominal wall. The appendix is not visualized. Abdominal Wall: Findings associated with the right lower quadrant colostomy site, as detailed above. There is diffuse haziness in the subcutaneous tissues of the abdominal wall, suggesting anasarca. Nonspecific nodular opacities are seen in the left anterior abdominal wall subcutaneous tissue. Lymphovascular Structures: No lymphadenopathy is identified. There is extensive atherosclerotic vascular calcifications in the abdomen. Bladder: Nondistended limiting evaluation. Pelvic Viscera: Suboptimally visualized in this noncontrast study. No adnexal mass is identified. Small free fluid in the pelvis. Osseous Structures: There is a large posterior decubitus ulcer posteriorly in the pelvic region, including overlying the sacrum and coccyx. This extends to the underlying sacrum and coccyx, and osteomyelitis would need to be considered and cannot be excluded on the current study. Multilevel degenerative changes in the spine. CT/CT abdomen pelvis wo con IMPRESSION: 1. Multifocal airspace opacities in the left greater than the right lower lobes. Additional areas of streaky and patchy opacities. Findings could reflect infectious or inflammatory process. Recommend follow up imaging post treatment. 2. Multiple pulmonary nodules. Larger nodule measures 5 mm. According to the UPDATED 2017 Fleischner Society recommendations, the advised follow up imaging for solid nodules < 6 mm is: LOW RISK PATIENT: No routine follow up. HIGH RISK PATIENT: Optional CT at 12 months. 3. Large posterior decubitus ulcer in the pelvic region, extending to the underlying sacrum and coccyx. Osteomyelitis would need to be considered and cannot be excluded on this current CT study. Consider further evaluation with bone scan or MRI may be helpful. 4. Apparent wall thickening of the stomach, from lack of distention versus gastritis. 5. Colostomy in the right lower quadrant. There is a loop of small bowel extending through the colostomy opening in the right lower quadrant, but there is no evidence of bowel obstruction. 6. Nonspecific prominent haziness in the mesentery. 7. Marked extensive atherosclerotic vascular calcification.
--- NOTE | 2020-12-11 14:03 | ECG_ITS ---
Test Reason : HYPOTENSION Blood Pressure : / mmHG Vent. Rate : 058 BPM Atrial Rate : 058 BPM P-R Int : 170 ms QRS Dur : 090 ms QT Int : 526 ms P-R-T Axes : 081 -15 055 degrees QTc Int : 516 ms Sinus bradycardia Nonspecific ST abnormality Prolonged QT Abnormal ECG When compared with ECG of 15-NOV-2020 14:52, No significant change was found Referred By: Jayce Lovelace Electronically Signed By:BARBY VILLALOBOS MD
[2020-12-11] MEDS: 0.9 % Sodium Chloride 1,000 ML 999 ML IV (14:14)
[2020-12-11 14:21] LABS: Glucose, Whole Blood 120 mg/dL (60-115)
[2020-12-11] MEDS: Midodrine HCl 5 MG TABLET PO (14:34)
--- NOTE | 2020-12-11 14:37 | PC.NURSE ---
Pt received 1l NS on a pressure bag, phlebotomy at bedside for blood draw. Pt medicated with midodrine as charted, minimally able to follow directions.
--- NOTE | 2020-12-11 15:30 | PC.NURSE ---
tech is at bedside attempting to obtain bloodwork
--- NOTE | 2020-12-11 15:37 | ED.GENADULT ---
HPI - General Adult General Chief complaint: Altered Mental Status Stated complaint: Altered Mental Status Time Seen by Provider: 12/11/20 14:01 Source: EMS Mode of arrival: ambulatory Limitations: no limitations History of Present Illness HPI narrative: Patient brought to ED for hypotensive and AMS. Related Data Home Medications Medication Instructions Recorded Confirmed Nephro-Huan 1 tab PO DAILY 09/20/20 09/20/20 acetaminophen 650 mg PO Q6H PRN 09/20/20 09/20/20 [id number] 1 ea PO DAILY 09/20/20 09/20/20 atorvastatin 20 mg PO BEDTIME 09/20/20 09/20/20 bisacodyl 5 mg PO BEDTIME 09/20/20 09/20/20 cholecalciferol (vitamin D3) 1,250 mcg PO QWEEK 09/20/20 09/20/20 hydromorphone 2 mg PO Q4H PRN 09/20/20 09/20/20 insulin lispro [Admelog U-100 1 sliding scale dose SUBCUT 09/20/20 09/20/20 Insulin lispro] USEASDIRECTD lisinopril 5 mg PO DAILY 09/20/20 09/20/20 melatonin 5 mg PO BEDTIME PRN 09/20/20 09/20/20 methadone [Methadone Intensol] 20 mg PO DAILY 09/20/20 09/20/20 midodrine 5 mg PO BID PRN 09/20/20 09/20/20 mirtazapine [Remeron] 7.5 mg PO BEDTIME 09/20/20 09/20/20 pantoprazole [Protonix] 40 mg PO DAILY 09/20/20 09/20/20 sevelamer carbonate 800 mg PO TID 09/20/20 09/20/20 sodium polystyrene sulfonate 15 g PO YOU@1000 09/20/20 09/20/20 Previous Rx's Medication Instructions Recorded carvedilol [Coreg] 3.125 mg PO BID #60 tab 09/23/20 Allergies Allergy/AdvReac Type Severity Reaction Status Date / Time Penicillins [PENICILLINS] Allergy Unknown Rash Verified 09/21/20 11:45 Review of Systems Review of Systems: Yes Unobtainable due to mental status [facility] Past Medical History Medical History (Updated 04/28/21 @ 22:13 by LITTLE Hardy) Dialysis patient Oxygen dependent Poor historian Renal failure Surgical History (Updated 11/15/20 @ 14:48 by Ly Newman) Surgical history unknown Social History Social History Household Members: Other Housing: [facility] Alcohol intake: unknown Smoking Status: Unknown if ever smoked Use of substances other than those prescribed or required for medical reasons: Unknown Advance Directives: No Advance Directives Information Provided: No service: No Current occupational status: unemployed and disabled Physical Exam Vital Signs: Vital Signs: Last Vital Signs Pulse 87 12/11/20 20:58 Resp 12 12/11/20 20:58 BP 116/61 12/11/20 20:58 Pulse Ox 98 12/11/20 20:58 Body Mass Index 20.5 Const: Other: Altered HENMT: Head: Yes normal to inspection, Yes No palpable skull fracture present, Yes normocephalic and Yes atraumatic Eyes: General: appearance normal, both eyes and all related structures Neck: Neck: Yes normal visual inspection, Yes full ROM, Yes no lymphadenopathy, Yes no meningeal signs, Yes trachea midline, Yes supple and No tender Chest: Chest palpation & inspection: normal inspection of the chest and normal palpation of entire chest wall Resp: Effort & Inspection: normal respiratory effort and able to speak in complete sentences Auscultation: clear to auscultation bilaterally Cardio: Jugular venous distension: no JVD Heart sounds: S1 normal heart sound present and S2 normal heart sound present GI: Other: Patient has stage IV sacral ulcer Inspection: Yes normal to inspection and No abdominal wall ecchymosis Palpation (GI): Soft to palpation, not firm, nontender, no guarding and not rigid : General: No CVA tenderness and Yes no CVA tenderness Back/Spine/Pelvis: Back: no CVA tenderness, No CVA tenderness and No back tenderness Skin: Other: Jaundice General skin exam: no rashes or lesions noted and elasticity normal Neuro: Other: Altered General: no meningeal signs Extrem: Other: Left BKA Psych: Other: Patient looks sickly. Appearance: grossly abnormal and poorly kempt Course Course Course Narrative: Patient hypotensive and altered. Will do basic labs and give fluids. Reevaluation(s) Reevaluation #1: Patient given 2 L of IV fluids and 5 mg of midodrine. EKG does not show STEMI. Or waiting for lab results. Look for signs of infection. May be dialysis induced hypotension. Reevaluation #2: Patient's does not have elevated white blood cell count. Chest x-ray came back normal. Patient is still hypotensive with systolic in 70s and 80s. Ten more mg of midodrine order. Patient has slight drop in hemoglobin/hematocrit. We will do stool occult guaiac. Patient sent for head CT chest CT and abdominal CT with also evaluation of coccyx due to patient having sacral ulcers. Looking for osteomyelitis. Patient placed in Trendelenburg. We will call Nephrology. Spoke with Dr. Ornelas who states begin patient on dopamine through midline IV/PICC access. Dies not recommend central line due to patient already have a PermCath and midline access.. Reevaluation #3: Spoke with Dr. Levy of Nephrology who is aware of patient. He states patient should be DNI/DNR and there is no improvement of quality of care. He states family has refused to make patient DNI DNR even though he explained to them that quality of life would not improve and her quality of life is actually declining. He was informed of patient's labs, physical exam, and vital signs. He does not recommend given patient blood. He agree with plan to give patient antibiotics and dopamine. Dr. Ornelas states patient does not need to go the ICU and he will manage the patient and fix blood pressure with dopamine and then present to the hospitalist. Case signed out to Dr. Ornelas will manage patient. Additional Reevaluation(s): Chest CT shows bilateral opacities. Patient is not septic. Lactic acid negative Medical Decision Making MDM Narrative Medical decision making narrative: Hypertension. Altered mental status. Pneumonia Lab Data Result diagrams: 12/11/20 15:43 12/11/20 15:43 Labs: Lab Results 12/11/20 12/11/20 12/11/20 Range/Units 13:56 15:43 15:43 WBC 10.6 (4.8-10.8) X10*3/uL RBC 2.54 L (4.20-5.50) X10*6/uL Hgb 7.6 L (12.0-16.0) g/dl Hct 25.2 L (37-47) % MCV 99.2 H (80-98) fL MCH 29.9 (27.0-33.0) pg MCHC 30.2 L (31.0-35.0) g/dl RDW 21.2 H (11.0-16.0) % Plt Count 117 L D (160-400) X10*3/uL MPV 11.1 (9.4-12.3) fL Immature Gran % (Auto) 0.4 (0.0-0.4) % Neut % (Auto) 65.5 (45-73) % Lymph % (Auto) 23.4 (20-40) % [place] % (Auto) 6.5 (2-11) % Eos % (Auto) 3.6 (0-4) % Baso % (Auto) 0.6 (0-2) % Lymph # (Auto) 2.5 (1.2-4.9) X10*3/uL [place] # (Auto) 0.7 (0.1-1.2) X10*3/uL Eos # (Auto) 0.4 (0.0-0.4) X10*3/uL Baso # (Auto) 0.1 (0.0-0.2) X10*3/uL Abs Immat Gran (auto) 0.04 H (0.00-0.03) X10*3/uL Absolute Neuts (auto) 6.9 (2.0-8.3) X10*3/uL Absolute Nucleated RBC 0.020 H (0.0-0.012) X10*3/uL Nucleated RBC % (auto) 0.2 (0.0-0.2) /100WBC PT 24.5 H D (10.8-13.0) SEC INR 2.0 H (0.9-1.1) APTT 34.7 (24.1-38.0) SEC Sodium (135-145) mmol/L Potassium (3.3-5.1) mmol/L Chloride (96-108) mmol/L Carbon Dioxide (22-29) mmol/L Anion Gap (12-20) BUN (9-16) mg/dL Creatinine (0.5-1.4) mg/dL Estim Creat Clear Calc Estimated GFR POC Glucose 120 H (60-115) mg/dL Random Glucose (60-115) mg/dL Lactic Acid (0.5-2.0) mmol/L Calcium (8.4-10.2) mg/dL Total Bilirubin (0.0-1.0) mg/dL Direct Bilirubin (0.0-0.5) mg/dL AST (5-31) U/L ALT (0-31) U/L Alkaline Phosphatase (39-117) U/L Ammonia (13-55) umol/L Troponin I High Sens (<3.5-17.0) ng/L Total Protein (6.5-8.0) g/dL Albumin (3.5-5.0) g/dL Lipase (8-78) U/L Stool Occult Blood (NEGATIVE) COVID-19 (LILY) (Negative) COVID-19 Clin Com Blood Type Antibody Screen 12/11/20 12/11/20 12/11/20 Range/Units 15:43 15:43 15:43 WBC (4.8-10.8) X10*3/uL RBC (4.20-5.50) X10*6/uL Hgb (12.0-16.0) g/dl Hct (37-47) % MCV (80-98) fL MCH (27.0-33.0) pg MCHC (31.0-35.0) g/dl RDW (11.0-16.0) % Plt Count (160-400) X10*3/uL MPV (9.4-12.3) fL Immature Gran % (Auto) (0.0-0.4) % Neut % (Auto) (45-73) % Lymph % (Auto) (20-40) % [place] % (Auto) (2-11) % Eos % (Auto) (0-4) % Baso % (Auto) (0-2) % Lymph # (Auto) (1.2-4.9) X10*3/uL [place] # (Auto) (0.1-1.2) X10*3/uL Eos # (Auto) (0.0-0.4) X10*3/uL Baso # (Auto) (0.0-0.2) X10*3/uL Abs Immat Gran (auto) (0.00-0.03) X10*3/uL Absolute Neuts (auto) (2.0-8.3) X10*3/uL Absolute Nucleated RBC (0.0-0.012) X10*3/uL Nucleated RBC % (auto) (0.0-0.2) /100WBC PT (10.8-13.0) SEC INR (0.9-1.1) APTT (24.1-38.0) SEC Sodium 140 (135-145) mmol/L Potassium 4.2 D (3.3-5.1) mmol/L Chloride 103 (96-108) mmol/L Carbon Dioxide 27 (22-29) mmol/L Anion Gap 14 (12-20) BUN 32 H (9-16) mg/dL Creatinine 5.09 H* (0.5-1.4) mg/dL Estim Creat Clear Calc 8.4 Estimated GFR 9 POC Glucose (60-115) mg/dL Random Glucose 116 H (60-115) mg/dL Lactic Acid 1.1 (0.5-2.0) mmol/L Calcium 8.0 L (8.4-10.2) mg/dL Total Bilirubin 3.1 H (0.0-1.0) mg/dL Direct Bilirubin 2.6 H (0.0-0.5) mg/dL AST 27 D (5-31) U/L ALT < 6 (0-31) U/L Alkaline Phosphatase 519 H D (39-117) U/L Ammonia (13-55) umol/L Troponin I High Sens 136.7 H (<3.5-17.0) ng/L Total Protein 7.1 (6.5-8.0) g/dL Albumin 2.4 L (3.5-5.0) g/dL Lipase 16 (8-78) U/L Stool Occult Blood (NEGATIVE) COVID-19 (LILY) (Negative) COVID-19 Clin [facility] Blood Type Antibody Screen 12/11/20 12/11/20 12/11/20 Range/Units 15:43 17:48 19:10 WBC (4.8-10.8) X10*3/uL RBC (4.20-5.50) X10*6/uL Hgb (12.0-16.0) g/dl Hct (37-47) % MCV (80-98) fL MCH (27.0-33.0) pg MCHC (31.0-35.0) g/dl RDW (11.0-16.0) % Plt Count (160-400) X10*3/uL MPV (9.4-12.3) fL Immature Gran % (Auto) (0.0-0.4) % Neut % (Auto) (45-73) % Lymph % (Auto) (20-40) % [place] % (Auto) (2-11) % Eos % (Auto) (0-4) % Baso % (Auto) (0-2) % Lymph # (Auto) (1.2-4.9) X10*3/uL [place] # (Auto) (0.1-1.2) X10*3/uL Eos # (Auto) (0.0-0.4) X10*3/uL Baso # (Auto) (0.0-0.2) X10*3/uL Abs Immat Gran (auto) (0.00-0.03) X10*3/uL Absolute Neuts (auto) (2.0-8.3) X10*3/uL Absolute Nucleated RBC (0.0-0.012) X10*3/uL Nucleated RBC % (auto) (0.0-0.2) /100WBC PT (10.8-13.0) SEC INR (0.9-1.1) APTT (24.1-38.0) SEC Sodium (135-145) mmol/L Potassium (3.3-5.1) mmol/L Chloride (96-108) mmol/L Carbon Dioxide (22-29) mmol/L Anion Gap (12-20) BUN (9-16) mg/dL Creatinine (0.5-1.4) mg/dL Estim Creat Clear Calc Estimated GFR POC Glucose (60-115) mg/dL Random Glucose (60-115) mg/dL Lactic Acid (0.5-2.0) mmol/L Calcium (8.4-10.2) mg/dL Total Bilirubin (0.0-1.0) mg/dL Direct Bilirubin (0.0-0.5) mg/dL AST (5-31) U/L ALT (0-31) U/L Alkaline Phosphatase (39-117) U/L Ammonia 30 (13-55) umol/L Troponin I High Sens (<3.5-17.0) ng/L Total Protein (6.5-8.0) g/dL Albumin (3.5-5.0) g/dL Lipase (8-78) U/L Stool Occult Blood POSITIVE (NEGATIVE) COVID-19 (LILY) Negative (Negative) COVID-19 Clin Com See Note Blood Type Antibody Screen 12/11/20 12/11/20 Range/Units 19:10 19:10 WBC (4.8-10.8) X10*3/uL RBC (4.20-5.50) X10*6/uL Hgb (12.0-16.0) g/dl Hct (37-47) % MCV (80-98) fL MCH (27.0-33.0) pg MCHC (31.0-35.0) g/dl RDW (11.0-16.0) % Plt Count (160-400) X10*3/uL MPV (9.4-12.3) fL Immature Gran % (Auto) (0.0-0.4) % Neut % (Auto) (45-73) % Lymph % (Auto) (20-40) % [place] % (Auto) (2-11) % Eos % (Auto) (0-4) % Baso % (Auto) (0-2) % Lymph # (Auto) (1.2-4.9) X10*3/uL [place] # (Auto) (0.1-1.2) X10*3/uL Eos # (Auto) (0.0-0.4) X10*3/uL Baso # (Auto) (0.0-0.2) X10*3/uL Abs Immat Gran (auto) (0.00-0.03) X10*3/uL Absolute Neuts (auto) (2.0-8.3) X10*3/uL Absolute Nucleated RBC (0.0-0.012) X10*3/uL Nucleated RBC % (auto) (0.0-0.2) /100WBC PT (10.8-13.0) SEC INR (0.9-1.1) APTT (24.1-38.0) SEC Sodium (135-145) mmol/L Potassium (3.3-5.1) mmol/L Chloride (96-108) mmol/L Carbon Dioxide (22-29) mmol/L Anion Gap (12-20) BUN (9-16) mg/dL Creatinine (0.5-1.4) mg/dL Estim Creat Clear Calc Estimated GFR POC Glucose (60-115) mg/dL Random Glucose (60-115) mg/dL Lactic Acid (0.5-2.0) mmol/L Calcium (8.4-10.2) mg/dL Total Bilirubin (0.0-1.0) mg/dL Direct Bilirubin (0.0-0.5) mg/dL AST (5-31) U/L ALT (0-31) U/L Alkaline Phosphatase (39-117) U/L Ammonia (13-55) umol/L Troponin I High Sens 133.0 H (<3.5-17.0) ng/L Total Protein (6.5-8.0) g/dL Albumin (3.5-5.0) g/dL Lipase (8-78) U/L Stool Occult Blood (NEGATIVE) COVID-19 (LILY) (Negative) COVID-19 Clin Com Blood Type O Positive Antibody Screen NEGATIVE ECG Data Interpretation: Sinus Ronald. Ventricular rate 58 Discharge Plan Discharge Clinical Impression: Altered mental status, Hypotension, Pneumonia Prescriptions: No Action atorvastatin 20 mg Tablet 20 mg PO BEDTIME RF: 0 midodrine 5 mg Tablet 5 mg PO BID PRN (Reason: DIALYSIS) RF: 0 hydromorphone 2 mg Tablet 2 mg PO Q4H PRN (Reason: Pain (Scale Score 4-6)) RF: 0 pantoprazole [Protonix] 40 mg Tablet,Delayed Release (Dr/Ec) 40 mg PO DAILY RF: 0 Nephro-Huan 0.8 mg Tablet 1 tab PO DAILY RF: 0 lisinopril 5 mg Tablet 5 mg PO DAILY RF: 0 mirtazapine [Remeron] 15 mg Tablet 7.5 mg PO BEDTIME RF: 0 methadone [Methadone Intensol] 10 mg/mL Concentrate 20 mg PO DAILY RF: 0 insulin lispro [Admelog U-100 Insulin lispro] 100 unit/mL Solution 1 sliding scale dose SUBCUT USEASDIRECTD RF: 0 sodium polystyrene sulfonate Powder 15 g PO YOU@1000 RF: 0 bisacodyl 5 mg Tablet 5 mg PO BEDTIME RF: 0 acetaminophen 325 mg Capsule 650 mg PO Q6H PRN (Reason: Pain) RF: 0 sevelamer carbonate 800 mg Tablet 800 mg PO TID RF: 0 melatonin 5 mg Tablet 5 mg PO BEDTIME PRN (Reason: Sleep) RF: 0 cholecalciferol (vitamin D3) 1,250 mcg (50,000 unit) Tablet 1,250 mcg PO QWEEK RF: 0 [id number]-[id number]-[id number]-[id number] 7-7-1.5 gram Powder In Packet 1 ea PO DAILY RF: 0 carvedilol [Coreg] 3.125 mg tablet 3.125 mg PO BID Qty: 60 RF: 0
[2020-12-11 15:53] LABS: Eosinophils Percent Auto 3.6 % (0-4); Hematocrit 25.2 % (37-47); Hemoglobin 7.6 g/dl (12.0-16.0); Mean Corpuscular HGB Conc 30.2 g/dl (31.0-35.0); Monocytes Percent Auto 6.5 % (2-11); PLT CLUMP 1; SCAN SMEAR FLAG 1
[2020-12-11 15:55] LABS: Basophils Absolute Auto 0.1 X10*3/uL (0.0-0.2); Basophils Percent Auto 0.6 % (0-2); Eosinophils Absolute Auto 0.4 X10*3/uL (0.0-0.4); Imm Gran Abs Auto 0.04 X10*3/uL (0.00-0.03); Imm Gran Pct Auto 0.4 % (0.0-0.4); Lymphocytes Absolute Auto 2.5 X10*3/uL (1.2-4.9); Lymphocytes Percent Auto 23.4 % (20-40); Mean Corpuscular Hemoglobin 29.9 pg (27.0-33.0); Mean Corpuscular Volume 99.2 fL (80-98); Mean Platelet Volume 11.1 fL (9.4-12.3); Monocytes Absolute Auto 0.7 X10*3/uL (0.1-1.2); NRBC Pct Auto 0.2 /100WBC (0.0-0.2); Neutrophils Absolute Auto 6.9 X10*3/uL (2.0-8.3); Neutrophils Percent Auto 65.5 % (45-73); Platelet Count 117 X10*3/uL (160-400); Red Blood Count 2.54 X10*6/uL (4.20-5.50); Red Cell Distribution Width 21.2 % (11.0-16.0); White Blood Count 10.6 X10*3/uL (4.8-10.8)
[2020-12-11 15:59] LABS: Prothrombin Time 24.5 SEC (10.8-13.0)
[2020-12-11 16:01] LABS: Partial Thromboplastin Time 34.7 SEC (24.1-38.0)
[2020-12-11 16:12] LABS: Ammonia 30 umol/L (13-55)
[2020-12-11 16:16] LABS: Lactic Acid 1.1 mmol/L (0.5-2.0)
[2020-12-11 16:46] LABS: Alanine Aminotransferase < 6 U/L (0-31); Albumin Level 2.4 g/dL (3.5-5.0); Alkaline Phosphatase 519 U/L (39-117); Anion Gap 14 (12-20); Aspartate Amino Transferase 27 U/L (5-31); Bilirubin Total 3.1 mg/dL (0.0-1.0); Blood Urea Nitrogen 32 mg/dL (9-16); Carbon Dioxide 27 mmol/L (22-29); Chloride 103 mmol/L (96-108); Glucose Random 116 mg/dL (60-115); Potassium 4.2 mmol/L (3.3-5.1); Sodium 140 mmol/L (135-145); Total Protein 7.1 g/dL (6.5-8.0)
[2020-12-11 16:56] LABS: Creatinine Clr Calc Pharmacy 8.4; Estimated Glomerular Filt Rate 9; Troponin-I High Sensitivity 136.7 ng/L (<3.5-17.0)
--- NOTE | 2020-12-11 17:28 | PC.NURSE ---
patient went to CT a this time
[2020-12-11 17:33] LABS: Bilirubin Direct 2.6 mg/dL (0.0-0.5); Lipase 16 U/L (8-78)
[2020-12-11] MEDS: Midodrine HCl 10 MG TABLET PO (17:53)
[2020-12-11 17:56] LABS: OBS Int Ctl Valid YES; OBS1 POSITIVE (NEGATIVE)
[2020-12-11] MEDS: DOPamine HCL/D5W 400 MG/250 ML PLAST..BAG 8.95 MG IVCONT (19:32)
[2020-12-11 19:33] LABS: COVID-19 Test Negative (Negative); IDNOW Serial# 08D9AD1C
[2020-12-11] MEDS: cefTRIAXone sodium 1 GM in 0.9 % Sodium Chloride 50 ML IV (19:33)
--- NOTE | 2020-12-11 20:08 | PC.NURSE ---
Radu (provider) reports that plan with patient is to admit to IMC, as discussed and advised by . No ICU beds available at [facility] at this time. This RN stated that this is clinically inappropriate. states if we improve her blood pressure, we'll just admit her to IMC instead . hat forming machine feeder (Nick Hobbs) aware of this. Dopamine drip infusing as ordered. Per Radu (provider), patient's family refuses DNR/DNI, and patient is a Full Code at this time. Radu also spoke with Nephrology regarding patient's lab results and clinical presentation and per Nephrology, no blood transfusion advised. Per previous RN Jenise Simmons, pt was given dialysis today. Pt has midline to left arm, and port access. Both accesses patient and intact, flushed with NS flush. Left side below the knee amputation. Sinus bradycardia on monitor 50s at this time with low BP 70s/30s. Pt is urdu speaking, sleeping at this time. Will continue to monitor patient.
[2020-12-11] MEDS: vancomycin HCL 750 MG in 0.9 % Sodium Chloride 250 ML 265 MG IV (20:33)
--- NOTE | 2020-12-11 20:59 | PC.NURSE ---
Dopamine currently infusing at 15mcg/kg/min. BP improved, NSR on traffic monitor specialist at this time. Vital signs documented. Oxygen continues at 2lpm via nasal cannula. Plan to photograph various wounds and place in paper chart. Provider (Radu) aware.
--- NOTE | 2020-12-11 23:04 | PC.NURSE ---
This RN spoke with CHANTALE Lewis from [facility] over the phone. Debbie stated I didn't even know where she was sent to from dialysis, I had to call around to find out . RN given update regarding patient's condition and explained that patient has multiple unstageable wounds throughout the body with only gauze in place. Photographs obtained and printed for patient file. Explained and showed CHANTALE Zeng ([facility] case management) photos. Debbie states she's supposed to have gauze and an ABD pad on the woundconfirmed that family refuses DNR/DNI and insists on full code status. Gauze and pink cushion dressings applied to wounds by this RN with assist from JANIS Antonio. Per , pt to be titrated off of Dopamine drip. This RN continues to attempt to advocate for patient transfer to ICU to . 's plan to continue to monitor in ED for IMC admission. This RN will continue to monitor patient.
--- NOTE | 2020-12-11 23:50 | PC.NURSE ---
Jose Guadalupe briggs applied for rectal temp 94.3. ordered Zosyn to be given. This RN notified that patient has already received antibiotics previously and has an allergy to Penicillin. states her reaction is not that bad, give it anyways . This RN asked if provider would order Demetrio, refused. Will continue to monitor. director museum or zoo (Nick Hobbs) aware. This RN continuing to advocate for ICU admission. Dopamine drip currently at 15mcg/kg/min.
[2020-12-11] MEDS: Piperacillin Sodium/Tazobactam 2.25 GM in 0.9 % Sodium Chloride 50 ML IV (23:56)
[2020-12-12] VITALS (45 sets, daily range): BP systolic 61–129; BP diastolic 37–74; PULSE 61–86; RESP 8–26; TEMP 34.6–38.1; O2SAT 90–100; BMI 21.3
--- NOTE | 2020-12-12 01:12 | PC.NURSE ---
DISCUSSION W/NURSING SUP, LEO KENYON, THIS CHARGE NURSE, AND DR. HUSSEIN. PT REQUIRING ICU LEVEL OF CARE D/T DOPAMINE DRIP. HAS BEEN MADE AWARE BY BOTH CHARGE & NURSING SUP THAT THE STAFFING DOES NOT SUPPORT THIS PATIENT BEING ADMITTED HERE. ADVISED PT WILL NEED TO BE TRANSFERRED IF SHE CONTINUES TO REQUIRE ICU LEVEL OF CARE. PER MD DOPAMINE DRIP HAS BEEN TITRATED TO 10MG. WILL CONTINUE TO MONITOR. IF PT CAN REMAIN NORMOTENSIVE SHE WILL BE ADMITTED TO IMC.
[2020-12-12] MEDS: Hydrocortisone Sod Succ/PF 100 MG VIAL 50 MG IVPUSH (02:16)
--- NOTE | 2020-12-12 03:32 | PC.NURSE ---
Per , [facility] did not accept patient for ICU transfer/admission. Attempting to transfer to [facility] next.
--- NOTE | 2020-12-12 03:33 | PC.NURSE ---
[facility] did not accept patient for ICU transfer/admission. Attempting to contact [facility] for transfer at this time. Per .
--- NOTE | 2020-12-12 04:01 | PC.NURSE ---
Bear hugger turned off. Current temperature 98.8f rectally.
--- NOTE | 2020-12-12 04:15 | PC.NURSE ---
Per , [facility] unable to accept patient at their facility, however, per Kyra (at [facility]), in [place], [place] can accept patient pending consent from patient's family and central line placement by . This RN attempted to contact Viv Beal (patient's daughter) at [phone], but when called, states this line has been disconnected . Unable to reach family or leave voicemail at this time. This RN now attempting to contact Michelle Ross to see if any alternative family contacts are listed in their file. Only 1 contact listed at [facility].
--- NOTE | 2020-12-12 04:41 | PC.NURSE ---
Remote Encoding Center Manager to accept patient to [facility]. Nursing measurement supervisor (Lorrie Mead) able to find additional ICU staff, and we now have an open ICU bed for this patient. Antonio (ICU provider) to bedside evaluating patient, and accepting. Pt minimally responsive to stimuli, intermittently agonal breathing noted. Pt is sudanese speaking. Number for Michelle Ross given to Antonio as requested, attempting to contact. Dopamine drip continues at 15mcg/kg/min, okayed by provider. Discussed all of this with .
--- NOTE | 2020-12-12 05:03 | PM.CCHP ---
History of Present Illness Date of Service: 12/12/20 Chief Complaint: Septic shock/healthcare acquired PNA/multiple pressure ulcers/cachexia HPI: Patient who is Lao-speaking only, 60 years old, with underlying history of end-stage renal disease on hemodialysis Wednesday and Fridays, hyperlipidemia, hypertension, diabetes, insomnia, orthostatic hypotension, GERD, enterocolitis due to C diff, acute pancreatitis without necrosis or infectious, chronic viral hepatitis-C, diabetic nephropathy, malignant neoplasm of the rectum, colon, uterus, opioid dependence, anemia of chronic disease, atrial fibrillation, right great toe abscess, chronic debilitation. Reportedly the patient was transferred to the ER after her hemodialysis session as she was noted to have a blood pressure of 60/30, and altered mental status on arrival to the ER her blood pressure was 70/37, heart rate 57, she was not hypoxic or tachypneic. At 11:30 pm he had been noted the patient's core temperature was 94.3? and was placed on a Vladimir Hugger. Patient's workup revealed a white count of 10.6, H&H of 7.6 and 25.2 respectively with platelet count of 117. PTT 24.5, INR 2.0. Electrolytes were unremarkable. Baseline renal function with current BUN of 32 and creatinine of 5.09, random glucose 120. Lactic acid 1.1. Calcium 8.0, total bilirubin 3.1, direct bilirubin 2.6. A CT 27, ALT less than 6. Ammonia 30. Alk phos 519. Troponin 133. Occult blood is positive. COVID negative. She did receive 2 L of IV fluids. Given the possible infiltrates, she had also received Zosyn without any reactions despite of her documented penicillin allergy. She was thought not to be septic, however she has not been able to be weaned off the dopamine drip and has required higher doses than what she was started at. She also received Solu-Cortef and midodrine without improvement. Given the lack of bed capacity, the patient was going to be transferred to a different facility but this was not possible and we were finally able to keep her here. Upon seeing this patient, it was evident that the patient is sicker than stated, she also looks cachectic, wasted and older than her age. She is not responding to my commands and only to sternal rub with intermittent Kussmaul respirations as well as low respiratory rate between 10 and 12 and significantly obtunded. Unable to answer questions. I did call the longterm where she resides and was able to obtain the phone number and name of the healthcare proxy as described under the social history however no answer was obtained from this line and I was unable to place a message. ROS: Unable to obtain, patient obtunded Past Medical History: As above Past Surgical History: Left BKA Several debridements of sacrococcygeal ulcer. Power port line placement right upper chest. Colostomy Family history: unknown Social History: Patient was transfer from a local longterm facility [facility] in [place], reportedly she is bedbound. As per the prison facility nurse Taya bolden, the patient's healthcare proxy is Mr. Marvel Beal [phone]. Her baseline is known to be alert and frequently confused within her own baseline. Regular texture renal diet/diabetic, thin liquids. It is unknown to me if the patient was ever a smoker or drinker. CODE STATUS: Full code until otherwise defined. Allergies: Penicillin (rash) Home Medications: Please see [facility] rec Sepsis physical exam done at 4:30 a.m. VS: 105/61, heart rate 70, respirations 12 ( but noted 5 breaths /min on exam), O2 sat 94% 2L NC; on a dopamine drip at 15 milligrams/hour. ?General: Opens her eyes with sternal rub only. Agonal breathing Unable to follow commands. Obtunded and almost agonal. ?Skin: Facial skin appears jaundiced but there is no icterus. Patient has multiple scabs throughout the body, multiple unstageable wounds on the right and left hip, left more than right hand digits finger tips, extremely large, deep and wide sacrococcygeal unstageable wound without any purulent discharge or surrounding erythema in any of the wounds but they all appear to be significantly chronic. Left BKA appears old. ?HEENT: Head is normocephalic, atraumatic, pupils equal round reactive to light. Buccal mucosa is dry Neck is supple without lymphadenopathy. ?Cardiac: Clear S1-S2, no murmurs rubs or gallops. Right upper chest Permacath noted in place with clean, dry, intact surroundings. Left antecubital midline in place. ?Pulmonary: Diminished lung sounds bilaterally with coarseness at the bases left more than right with fine crackles at the left base and fine rhonchi ?Abdomen: Right lower quadrant colostomy bag with yellow, liquid the stool. Protuberant, positive bowel sounds in all 4 quadrants. Soft, nontender, no rebound or guarding. ?Musculoskeletal: Patient is barely moving upper and lower extremities at the major joints upon request. Left BKA. There is no calf tenderness or edema noted on the right leg. ?Neurologic: As above, agonal not withdrawing to pain Vascular: 2+ pulses upper and lower extremities distally. ? SIGNIFICANT LABORATORY DATA: As above ABG: PH 7.24, pCO2 of 60, pO2 51; HCO3 28 REVIEW OF IMAGES: Chest x-ray results No confluent parenchymal disease. Dialysis catheter and left upper extremity midline catheter in place as described. Head CT No acute pathology Chest CT IMPRESSION: 1. Multifocal airspace opacities in the left greater than the right lower lobes. Additional areas of streaky and patchy opacities. Findings could reflect infectious or inflammatory process. Recommend follow up imaging post treatment. 2. Multiple pulmonary nodules. Larger nodule measures 5 mm. According to the UPDATED 2017 Fleischner Society recommendations, the advised follow up imaging for solid nodules < 6 mm is: LOW RISK PATIENT: No routine follow up. HIGH RISK PATIENT: Optional CT at 12 months. 3. Large posterior decubitus ulcer in the pelvic region, extending to the underlying sacrum and coccyx. Osteomyelitis would need to be considered and cannot be excluded on this current CT study. Consider further evaluation with bone scan or MRI may be helpful. 4. Apparent wall thickening of the stomach, from lack of distention versus gastritis. 5. Colostomy in the right lower quadrant. There is a loop of small bowel extending through the colostomy opening in the right lower quadrant, but there is no evidence of bowel obstruction. 6. Nonspecific prominent haziness in the mesentery. 7. Marked extensive atherosclerotic vascular calcification. EKG REVIEW: Bradycardic 50 beats per minute. No ST elevations, and a specific ST abnormalities. QTC 526. No comparison available. ASSESSMENT AND PLAN: 1. Septic (shock perhaps) multifactorial in the setting of healthcare acquired bilateral pneumonias; osteomyelitis of sacrococcygeal ulcer, plus-minus C diff; although her hypotension could be due to renal retention of her multiple blood pressure medications versus excessive dialysis fluid removal 2. End-stage renal disease post hemodialysis today 3. Multiple unstageable wounds of the hips, Coxis 4. 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 5. Anemia of chronic disease 6. Coagulopathy with INR of 2.0 likely related to underlying liver disease 7. Chronic diabetic 8. Metabolic encephalopathy superimposed to baseline confusion 9. Hypoalbuminemia 10. Malnutrition 11. Cachexia 12. Occult blood positive in need of further investigation superimposed to coagulopathy 13. Improved hypothermia due to septic shock 14. Respiratory acidosis in need of BiPAP 15. Lung nodules in need of follow-up Admit to ICU, monitor vital signs, I's and nose, continue with dopamine, I wonder if her related bradycardia is due to beta-bruce retention will consider glucagon, start cefepime, which can be given every 24 hours after loading dose of 2 g, 1 g every 24 hours after dialysis. Renally adjusted dose of vancomycin to treat her healthcare acquired pneumonia, I am also concerned about the possibility of Osteo; C diff colitis and will treat her with a single dose of metronidazole IV, will need further evaluation for possible osteomyelitis of the sacral wound. Will give albumin, check magnesium, phosphorus, repeat labs now including lactic acid, ABG. Consult Nephrology and Wound Care, type and cross and follow the H&H, will consider vitamin K, insulin sliding scale. GI PROPHYLAXIS: Will place her on IV ppi every 12 hours after 80 mg load DVT PROPHYLAXIS: High risk of bleeding, pneumatic stockings to right leg only. Critical care time used for critical evaluation of this patient, diagnosis, treatment and coordination of care, review her records and documentation TOTAL CRITICAL CARE TIME 120 MIN . Patient's care was discussed in detail with Dr. Ruelas. He is aware of all the above as well as the plan of care for this patient. [facility] Past Medical History Medical History (Updated 12/12/20 @ 17:41 by Marianne Arriaza MD) Dialysis patient Oxygen dependent Poor historian Renal failure Surgical History Surgical History (Updated 11/15/20 @ 14:48 by Ly Newman) Surgical history unknown Social History Social History Household Members: Other Housing: Long-Term Do you presently have visiting nurse or other home services: No Unable to assess alcohol history related to: Unable to respond Alcohol intake: unknown Smoking Status: Unknown if ever smoked Smoked in Last 30 Days: No Patient Interested in Nicotine Replacement: No Patient Given Instructions on How to Stop Smoking: No Second Hand Smoke Exposure: No Use of substances other than those prescribed or required for medical reasons: Unable to respond Currently Displaying Signs/Symptoms of Drug Intoxication Withdrawal: No Spiritual Healthcare Practices: unable to respond Pentecostal Healthcare Practices: unable to respond Cultural Healthcare Practices: unable to respond Advance Directives: No Advance Directives Information Provided: No Recently lost weight without trying: Unsure service: No Current occupational status: unemployed and disabled Meds Allergies Allergy/AdvReac Type Severity Reaction Status Date / Time Penicillins [PENICILLINS] Allergy Unknown Rash Verified 09/21/20 11:45 Active Medications: Current Medications Generic Name Dose Route Start Last Admin Trade Name Freq PRN Reason Stop Dose Admin Dopamine HCl/Dextrose 400 mg in 250 mls @ 0 mls/hr 12/11/20 18:45 12/12/20 02:20 IVCONT 15 mcg/kg/min .Q0M JENIFER 26.84 mls/hr Titration Protocol Per Protocol Metronidazole 500 mg in 100 mls @ 100 mls/hr 12/12/20 05:02 Flagyl IV 12/12/20 06:01 ONCE ONE Home Medications Medication Instructions Recorded Confirmed Last Taken Type Nephro-Huan 1 tab PO DAILY 09/20/20 12/12/20 Unknown History acetaminophen 650 mg PO Q4H PRN 09/20/20 12/12/20 Unknown History atorvastatin 20 mg PO BEDTIME 09/20/20 12/12/20 Unknown History midodrine 5 mg PO TID 09/20/20 12/12/20 Unknown History mirtazapine [Remeron] 7.5 mg PO BEDTIME 09/20/20 12/12/20 Unknown History sevelamer carbonate 800 mg PO TID 09/20/20 12/12/20 Unknown History cholecalciferol (vitamin D3) 125 mcg PO DAILY 12/12/20 12/12/20 Unknown History fluoxetine 1 tab PO DAILY 12/12/20 12/12/20 Unknown History lidocaine 1 appl TOPICAL DAILY 12/12/20 12/12/20 Unknown History meropenem 1 g IV DAILY 12/12/20 12/12/20 Unknown History oxycodone 5 mg PO Q4H PRN 12/12/20 12/12/20 Unknown History oxycodone 10 mg PO Q4H PRN 12/12/20 12/12/20 Unknown History pantoprazole 20 mg PO DAILY 12/12/20 12/12/20 Unknown History quetiapine 1 tab PO BEDTIME 12/12/20 12/12/20 Unknown History Physical Exam Vital Signs: Vital Signs: Last Vital Signs Temp 94.3 F L 12/11/20 23:29 Pulse 64 12/11/20 23:29 Resp 12 12/11/20 23:29 BP 105/61 12/12/20 01:25 Pulse Ox 98 12/11/20 20:58 Body Mass Index 20.5 Results Labs CBC and Chem 7: 12/12/20 08:45 12/12/20 08:45 Labs: Laboratory Results - last 24 hr 12/11/20 12/11/20 12/11/20 13:56 15:43 15:43 MCV 99.2 H MCH 29.9 MCHC 30.2 L RDW 21.2 H Plt Count 117 L D MPV 11.1 Immature Gran % (Auto) 0.4 Neut % (Auto) 65.5 Lymph % (Auto) 23.4 [place] % (Auto) 6.5 Eos % (Auto) 3.6 Baso % (Auto) 0.6 Lymph # (Auto) 2.5 [place] # (Auto) 0.7 Eos # (Auto) 0.4 Baso # (Auto) 0.1 Abs Immat Gran (auto) 0.04 H Absolute Neuts (auto) 6.9 Absolute Nucleated RBC 0.020 H Nucleated RBC % (auto) 0.2 PT 24.5 H D INR 2.0 H APTT 34.7 Anion Gap Estim Creat Clear Calc Estimated GFR POC Glucose 120 H Random Glucose Lactic Acid Calcium Total Bilirubin Direct Bilirubin AST ALT Alkaline Phosphatase Ammonia Troponin I High Sens Total Protein Albumin Lipase Stool Occult Blood COVID-19 (LILY) COVID-19 Clin Com Blood Type Antibody Screen 12/11/20 12/11/20 12/11/20 15:43 15:43 15:43 MCV MCH MCHC RDW Plt Count MPV Immature Gran % (Auto) Neut % (Auto) Lymph % (Auto) [place] % (Auto) Eos % (Auto) Baso % (Auto) Lymph # (Auto) [place] # (Auto) Eos # (Auto) Baso # (Auto) Abs Immat Gran (auto) Absolute Neuts (auto) Absolute Nucleated RBC Nucleated RBC % (auto) PT INR APTT Anion Gap 14 Estim Creat Clear Calc 8.4 Estimated GFR 9 POC Glucose Random Glucose 116 H Lactic Acid 1.1 Calcium 8.0 L Total Bilirubin 3.1 H Direct Bilirubin 2.6 H AST 27 D ALT < 6 Alkaline Phosphatase 519 H D Ammonia Troponin I High Sens 136.7 H Total Protein 7.1 Albumin 2.4 L Lipase 16 Stool Occult Blood COVID-19 (LILY) COVID-19 Clin Com Blood Type Antibody Screen 12/11/20 12/11/20 12/11/20 15:43 17:48 19:10 MCV MCH MCHC RDW Plt Count MPV Immature Gran % (Auto) Neut % (Auto) Lymph % (Auto) [place] % (Auto) Eos % (Auto) Baso % (Auto) Lymph # (Auto) [place] # (Auto) Eos # (Auto) Baso # (Auto) Abs Immat Gran (auto) Absolute Neuts (auto) Absolute Nucleated RBC Nucleated RBC % (auto) PT INR APTT Anion Gap Estim Creat Clear Calc Estimated GFR POC Glucose Random Glucose Lactic Acid Calcium Total Bilirubin Direct Bilirubin AST ALT Alkaline Phosphatase Ammonia 30 Troponin I High Sens Total Protein Albumin Lipase Stool Occult Blood POSITIVE COVID-19 (LILY) Negative COVID-19 Clin Com See Note Blood Type Antibody Screen 12/11/20 12/11/20 19:10 19:10 MCV MCH MCHC RDW Plt Count MPV Immature Gran % (Auto) Neut % (Auto) Lymph % (Auto) [place] % (Auto) Eos % (Auto) Baso % (Auto) Lymph # (Auto) [place] # (Auto) Eos # (Auto) Baso # (Auto) Abs Immat Gran (auto) Absolute Neuts (auto) Absolute Nucleated RBC Nucleated RBC % (auto) PT INR APTT Anion Gap Estim Creat Clear Calc Estimated GFR POC Glucose Random Glucose Lactic Acid Calcium Total Bilirubin Direct Bilirubin AST ALT Alkaline Phosphatase Ammonia Troponin I High Sens 133.0 H Total Protein Albumin Lipase Stool Occult Blood COVID-19 (LILY) COVID-19 Clin Com Blood Type O Positive Antibody Screen NEGATIVE Imaging Radiologist's Impressions: Impressions Chest X-Ray 12/11/20 14:01 IMPRESSION: No confluent parenchymal disease. Dialysis catheter and left upper extremity midline catheter in place as described. Head CT 12/11/20 16:25 IMPRESSION: No CT evidence of acute intracranial pathology. Abdomen/Pelvis CT 12/11/20 17:29 IMPRESSION: 1. Multifocal airspace opacities in the left greater than the right lower lobes. Additional areas of streaky and patchy opacities. Findings could reflect infectious or inflammatory process. Recommend follow up imaging post treatment. 2. Multiple pulmonary nodules. Larger nodule measures 5 mm. According to the UPDATED 2017 Fleischner Society recommendations, the advised follow up imaging for solid nodules < 6 mm is: LOW RISK PATIENT: No routine follow up. HIGH RISK PATIENT: Optional CT at 12 months. 3. Large posterior decubitus ulcer in the pelvic region, extending to the underlying sacrum and coccyx. Osteomyelitis would need to be considered and cannot be excluded on this current CT study. Consider further evaluation with bone scan or MRI may be helpful. 4. Apparent wall thickening of the stomach, from lack of distention versus gastritis. 5. Colostomy in the right lower quadrant. There is a loop of small bowel extending through the colostomy opening in the right lower quadrant, but there is no evidence of bowel obstruction. 6. Nonspecific prominent haziness in the mesentery. 7. Marked extensive atherosclerotic vascular calcification. Chest CT 12/11/20 17:29
--- NOTE | 2020-12-12 05:19 | PC.NURSE ---
Per Antonio (ICU PA) plan to place patient on BiPAP for agonal breathing, and obtain ABGs. Requesting transfer to ICU immediately after BiPAP placement.
[2020-12-12] MEDS: Pantoprazole Sodium 40 MG/10 ML VIAL 80 MG IVPUSH (05:44)
[2020-12-12 05:57] LABS: ABG Base Excess 0.4 mmol/L; ABG HCO3 28 mmol/L (22-26); ABG pCO2 60 mmHg (32-45); ABG pCO2 TC 63 mmHg (32-45); ABG pH 7.27 (7.35-7.45); ABG pH TC 7.26 (7.35-7.45); ABG pO2 51 mmHg (83-108); ABG pO2 TC 55 (83-108)
[2020-12-12 06:29] LABS: ABG Refer to POC result
[2020-12-12] MEDS: DOPamine HCL/D5W 400 MG/250 ML PLAST..BAG 26.84 MG IVCONT (06:34)
--- NOTE | 2020-12-12 06:40 | PC.NURSE ---
ADMIT TO 260-1 VIA STRETCHER...DROWSY..AROUSES TO TACTILE STIMULI...O2 2 L/M VIA CANNULA...PLACED BIPAP RATE 12 10/5 40%...RR 14-16...Ve 4-5 l/m...sao2 100%...DOPAMINE 15 MCG/KG/MIN VIA RIGHT ARM MIDLINE...OSTOMY LIQUIED BROWN STOOL...MULTIPLE DECUBITI TO COCCYX/HIPS--WOUNDS TO BACK/LEGS (SEE PHOTOS FROM ER DEPT)...NSR--NO ECTOPY...MD PRESENT IN ROOM ..CURRENTLY PERFORMING BEDSIDE ECHO
--- NOTE | 2020-12-12 06:45 | PC.NURSE ---
Late Entry: Patient accepted to [facility] ICU by Antonio (LITTLE) & Hand Cutter. Transferred to ICU room 260 by this RN & Kendra Goldberg (respiratory therapist) via stretcher. Prior to transport, ABGs drawn by RT and sent for analysis, awaiting results. Plan for being placed on BiPAP in ICU due to low respiratory rate/intermittent agonal breathing. Report given to CHANTALE Stanley (ICU). Dopamine continues to infuse at 15mcg/kg/min via midline. Pt has a midline on the left side and a dialysis port.
[2020-12-12 07:41] LABS: CDIFF Ag Negative (Negative); CDIFF Internal ctrl Dots and bkg OK (V); CDiff Toxin Negative (Negative)
[2020-12-12 08:42] LABS: Glucose, Whole Blood 152 mg/dL (60-115)
--- NOTE | 2020-12-12 08:55 | W.PM.CCHP ---
Procedures Central Line Placement Left IJ: Central Line Comments: PROCEDURE: Insertion left internal jugular triple lumen central venous catheter. INDICATION: Venous access. ANESTHESIA: Local 1% lidocaine. PROCEDURE: Vascular ultrasound was used to examine the right neck and supraclavicular area. I was unable to find a clear supraclavicular vein. A small compressible internal jugular vein was noted, superior to the left carotid artery. The leftt neck was widely prepped and draped in full sterile fashion. Local anesthesia was applied to the LIJV insertion site. Under US guidance, the Left IJ vein was cannulated on the 3rd pass of the 18 g thin wall needle, w return of dark, non-pulsatile blood. The wire was threaded without incident. The 16cm x 7 Mozambican triple-lumen CVC was advanced into the vein to the 13cm lizbeth via the Seldinger technique without incident. There was good blood return x3. The catheter was sutured x3 and a Biopatch and dry sterile dressing were applied. Postop chest x-ray showed the line in good position with no pneumothorax. The patient tolerated the procedure well w no complications. Consent for Procedure: Emergent-no informed consent obtained
--- NOTE | 2020-12-12 09:00 | P.PNCC_ITS ---
Subjective Subjective Date of Service: 12/12/20 Interval History: Mrs. Corcoran was admitted to ICU early this morning bec of hypotension, possible septic shock. The patient is a 60 year old woman with history of end-stage renal disease on hemodialysis for about two years via permcat, hypertension, diabetes, orthostatic hypotension, NSTEMI, atrial fibrillation (not on anticoag bec of GI bleed), GERD, enterocolitis due to C diff, acute pancreatitis without necrosis or infection, chronic hepatitis-C, h/o uterine cancer in the past (s/p radical hysterectomy 2012), active rectal cancer, opioid and cocaine dependence, anemia of chronic disease, PVD, s/p left BKA and dry gangrene of right toes, huge sacral decubitus, and cachexia and chronic debilitation. By report, the patient is frequently noncompliant with dialysis. The patient has been in and out of hospitals and nursing homes. She gets most of her hospital care at [facility] and [facility], although she has also been to [facility] many times. She has two sons who are her healthcare proxies: Jairo Beal who is HCP1 ([phone]), and Dariel Beal who is HCP2 ([phone]). In May, the patient was hospitalized at [facility] with ischemic bowel, she underwent partial resection of her small bowel and had a diverting loop ileostomy. During that hospitalization, the patient underwent colonoscopy and was found to have a rectal mass that was diagnosed as adenocarcinoma of the rectum. A PET-CT scan at that time showed no evidence of distant metastatic disease. There was a liver lesion but that was biopsied and shown not to be cancerous. The patient was not a candidate for radiation therapy because she had had previous radiation to her pelvis for another cancer (presumably her previous uterine cancer). She was referred to [place] for consideration of surgery, but never followed up. Her oncologist at [facility] is Dr. Hayes ([phone]). He saw her last on Sep 12. At that time, she had no significant sacral decubitus. The patient was admitted her at [facility] Sep 20-2020 for hyperkalemia, bradycardia, fluid overload, and metabolic encephalopathy due to missed hemodialysis sessions. The patient was initially admitted to ICU, received emergent hemodialysis, hyperkalemia was resolved. Coreg was held and bradycardia resolved. Encephalopathy resolved. Patient was stable and discharged to short-term rehab. On November 03, 2020, the patient was admitted to [facility] agonal 2? critical hyperkalemia 2? refusal to have dialysis. The [facility] H&P reports poor quality of life at the halfway, with patient repetitively saying that she wants to and refusing HD. The two sons had insisted on full code status despite mult discussions at the halfway. On 11/03/20, she was transferred from the halfway to [facility] ED, where she was agonal. She coded three times for a total CPR duration of 45 min. She was intubated and admitted to ICU, and ultimately survived. She was extubated 11/06. At that time, she did have a 10x10 cm sacrococcygeal ulcer. While she was at [facility], she continued to refuse HD or ended sessions early, she refused care and was uncooperative. On psychiatry eval, she was judged as not having decision-making capacity. Family insisted on patient remaining w ?full code? status. She was discharged on 11/14. On November 20, the patient was admitted to the [facility] ICU with AMS, septic shock, and critical hyperkalemia, for urgent HD. She underwent operative debridement of infected coccygeal DTI on 11/22 under GETA. Size of ulcer at that time was 22x15 cm. Not considered a candidate for wound vac. While she was hospitalized at [facility], mult discussions were held w family re palliative care, including ethics consult. Family was not interested. BP at [facility] ranged 70-90 systolic. She was discharged on 12/06. Yesterday, the patient was transferred to the [facility] ED after her hemodialysis session bec she was noted to have a blood pressure of 60/30, and altered mental status. On arrival to the ER at about 2pm, her blood pressure was 70/37, heart rate 57, she was not hypoxic or tachypneic. First temp was taken at 11:30 pm, and she was found to be 94.3?. Was placed on a Vladimir Hugger. Workup revealed a white count of 10.6, Hb of 7.6, INR 2.0. Electrolytes were unremarkable. Baseline renal function with current BUN of 32 and creatinine of 5.09. Gucose 120. Lactic acid 1.1. Tbili 3.1, AST 27, ALT <6, Ammonia 30. Troponin 130?s x 2. Occult blood is positive. COVID negative. She was given 2L IVF. Chest CT suggested poss bilat lower lobe pulmon infiltrates, so she was given Zosyn. She was started on dopamine. She was not thought to be septic, however she was not been able to be weaned off the dopamine. She was also given hydrocortisone and midodrine without improvement. She was therefore admitted to ICU. In the ICU, the patient was cachectic, ill-appearing, and obtunded. She responded to sternal rub with intermittent Kussmaul respirations as well as low respiratory rate. No family member was able to be reached. The patient was thought to have poss multifactorial septic shock, with bilat pn eumonias, poss osteomyelitis of sacrococcygeal ulcer, even possible C. Diff. Coagulopathy was thought 2?underlying liver disease. She was continued on dopamine. ECHOCARDIOGRAM: My echo at the bedside showed the following: Image quality: Good. Findings: 1. Severe LVH and RVH. 2. Normal LV and RV cavity size. 3. Excellent RV and LV function. LVEF > 60%. 4. Atria not adequately evaluated. 5. Trileaflet aortic valve with no and trace AI by color flow. 6. Thickened mitral valve leaflets with trace-1+ MR by color flow. 7. Normal tricuspid valve morphology. Unable to image any TR by color-flow. Continuous wave Doppler signal measured 2.5 cm. Estimated gradient 25 mm. 8. IVC measured 1.4 cm, with about 25% insp collapse. Estimated CVP 5mm. Estimated RVSP 30mm. The patient was given more albumin. Dopamine was transitioned to phenylephrine. On phenylephrine at 0.5 ug/k/min, she maintained a BP of about 90?s/50. A central line had to be placed emergently for IV access and blood draws. F/U lactic acid was negative. I spoke with Dr. 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 I spoke with both Jairo and Dariel Beal earlier in the day. Jairo didn?t want to talk much about his mother, he referred me to Dariel. I told Dariel I would call him back after I got the records from [facility] and from [facility]. OVERALL IMPRESSION: 1. Underlying PMHx as detailed above. 2. Clearly, Mrs. Shoemaker is in the ending phase of her life. IMO, the medical interventions that the sons are forcing is (arguably) lianna to criminal battery. 3. The patient has severe hypertrophic heart disease. The etiology of the patient?s current hypotension could well be simply hypovolemia, added to her chronic hypotension (per the [facility] chart notes). It?s not clear to me whether or not she should be on midodrine. 4. The normal WBC and lactic acid militate against sepsis. The hypothermia may well have been simple environmental exposure of this 49 kg woman to the cold ED, along with getting liters of cold IV fluids. 5. She has a huge, stage 4 sacral DTI. I examined the patient at the bedside with Dr. Arriaza from wound care. Altho there certainly isn?t much necrotic tissue, a general surgical consultation is warranted. 6. Beyond the end-of-life issues, perhaps the issue of greatest concern is the untreated rectal cancer. Son Dariel indicated to me that his mother had metatstatic cancer. I don?t know if that is in fact true, or how he knows that, bec none of the records that I saw mentioned that, and the report of the abdominal CT done in our ED yesterday made no mention of it. If she does have metastatic cancer, that is another impetus to stop torturing this poor lady and let her be in peace. For now, we?ll continue Abx pending culture results. Will talk further with the sons tomorrow. The information about the patient?s PMHx, in particular the events of late last year and this year was obatained from exhaustive review of hundreds of pages of medical records from [facility] and from [facility]. Critical care time (as outlined above; excluding procedures): 2.5 + hours. Physical Exam Vital Signs: Vital Signs: Last Vital Signs Temp 99.3 F 12/12/20 08:00 Pulse 79 12/12/20 08:00 Resp 10 L 12/12/20 08:00 BP 101/52 L 12/12/20 08:00 Pulse Ox 98 12/12/20 08:00 Oxygen Flow Rate 2 12/12/20 04:34 Body Mass Index 21.3 Objective Data Labs CBC & Chem 7: 12/12/20 08:45 12/12/20 08:45 Labs: Laboratory Results - last 24 hr 12/11/20 12/11/20 12/11/20 13:56 15:43 15:43 WBC 10.6 RBC 2.54 L Hgb 7.6 L Hct 25.2 L MCV 99.2 H MCH 29.9 MCHC 30.2 L RDW 21.2 H Plt Count 117 L D MPV 11.1 Immature Gran % (Auto) 0.4 Neut % (Auto) 65.5 Lymph % (Auto) 23.4 [place] % (Auto) 6.5 Eos % (Auto) 3.6 Baso % (Auto) 0.6 Lymph # (Auto) 2.5 [place] # (Auto) 0.7 Eos # (Auto) 0.4 Baso # (Auto) 0.1 Abs Immat Gran (auto) 0.04 H Absolute Neuts (auto) 6.9 Absolute Nucleated RBC 0.020 H Nucleated RBC % (auto) 0.2 PT 24.5 H D INR 2.0 H APTT 34.7 O2 Saturation ABG pH at Pt Temp ABG pH (Temp Correct) ABG pCO2 at Pt Temp ABG pCO2 (Temp Corrct ABG pO2 at Pt Temp ABG pO2 (Temp Correct ABG HCO3 ABG Base Excess (Actual) Sodium Potassium Chloride Carbon Dioxide Anion Gap BUN Creatinine Estim Creat Clear Calc Estimated GFR POC Glucose 120 H Random Glucose Lactic Acid Calcium Total Bilirubin Direct Bilirubin AST ALT Alkaline Phosphatase Ammonia Troponin I High Sens Total Protein Albumin Lipase Stool Occult Blood C. difficile Toxin A&B C. difficile Antigen C. difficile Interpret COVID-19 (LILY) COVID-19 Clin Com Blood Type Antibody Screen 12/11/20 12/11/20 12/11/20 15:43 15:43 15:43 WBC RBC Hgb Hct MCV MCH MCHC RDW Plt Count MPV Immature Gran % (Auto) Neut % (Auto) Lymph % (Auto) [place] % (Auto) Eos % (Auto) Baso % (Auto) Lymph # (Auto) [place] # (Auto) Eos # (Auto) Baso # (Auto) Abs Immat Gran (auto) Absolute Neuts (auto) Absolute Nucleated RBC Nucleated RBC % (auto) PT INR APTT O2 Saturation ABG pH at Pt Temp ABG pH (Temp Correct) ABG pCO2 at Pt Temp ABG pCO2 (Temp Corrct ABG pO2 at Pt Temp ABG pO2 (Temp Correct ABG HCO3 ABG Base Excess (Actual) Sodium 140 Potassium 4.2 D Chloride 103 Carbon Dioxide 27 Anion Gap 14 BUN 32 H Creatinine 5.09 H* Estim Creat Clear Calc 8.4 Estimated GFR 9 POC Glucose Random Glucose 116 H Lactic Acid 1.1 Calcium 8.0 L Total Bilirubin 3.1 H Direct Bilirubin 2.6 H AST 27 D ALT < 6 Alkaline Phosphatase 519 H D Ammonia Troponin I High Sens 136.7 H Total Protein 7.1 Albumin 2.4 L Lipase 16 Stool Occult Blood C. difficile Toxin A&B C. difficile Antigen C. difficile Interpret COVID-19 (LILY) COVID-19 Clin Com Blood Type Antibody Screen 12/11/20 12/11/20 12/11/20 15:43 17:48 19:10 WBC RBC Hgb Hct MCV MCH MCHC RDW Plt Count MPV Immature Gran % (Auto) Neut % (Auto) Lymph % (Auto) [place] % (Auto) Eos % (Auto) Baso % (Auto) Lymph # (Auto) [place] # (Auto) Eos # (Auto) Baso # (Auto) Abs Immat Gran (auto) Absolute Neuts (auto) Absolute Nucleated RBC Nucleated RBC % (auto) PT INR APTT O2 Saturation ABG pH at Pt Temp ABG pH (Temp Correct) ABG pCO2 at Pt Temp ABG pCO2 (Temp Corrct ABG pO2 at Pt Temp ABG pO2 (Temp Correct ABG HCO3 ABG Base Excess (Actual) Sodium Potassium Chloride Carbon Dioxide Anion Gap BUN Creatinine Estim Creat Clear Calc Estimated GFR POC Glucose Random Glucose Lactic Acid Calcium Total Bilirubin Direct Bilirubin AST ALT Alkaline Phosphatase Ammonia 30 Troponin I High Sens Total Protein Albumin Lipase Stool Occult Blood POSITIVE C. difficile Toxin A&B C. difficile Antigen C. difficile Interpret COVID-19 (LILY) Negative COVID-19 Clin Com See Note Blood Type Antibody Screen 12/11/20 12/11/20 12/12/20 19:10 19:10 05:48 WBC RBC Hgb Hct MCV MCH MCHC RDW Plt Count MPV Immature Gran % (Auto) Neut % (Auto) Lymph % (Auto) [place] % (Auto) Eos % (Auto) Baso % (Auto) Lymph # (Auto) [place] # (Auto) Eos # (Auto) Baso # (Auto) Abs Immat Gran (auto) Absolute Neuts (auto) Absolute Nucleated RBC Nucleated RBC % (auto) PT INR APTT O2 Saturation 75.0 ABG pH at Pt Temp 7.27 L ABG pH (Temp Correct) 7.26 L ABG pCO2 at Pt Temp 60 H* ABG pCO2 (Temp Corrct 63 H* ABG pO2 at Pt Temp 51 L ABG pO2 (Temp Correct 55 L ABG HCO3 28 H ABG Base Excess (Actual) 0.4 Sodium Potassium Chloride Carbon Dioxide Anion Gap BUN Creatinine Estim Creat Clear Calc Estimated GFR POC Glucose Random Glucose Lactic Acid Calcium Total Bilirubin Direct Bilirubin AST ALT Alkaline Phosphatase Ammonia Troponin I High Sens 133.0 H Total Protein Albumin Lipase Stool Occult Blood C. difficile Toxin A&B C. difficile Antigen C. difficile Interpret COVID-19 (LILY) COVID-19 Clin Com Blood Type O Positive Antibody Screen NEGATIVE 12/12/20 12/12/20 12/12/20 06:18 08:35 08:50 WBC RBC Hgb Hct MCV MCH MCHC RDW Plt Count MPV Immature Gran % (Auto) Neut % (Auto) Lymph % (Auto) [place] % (Auto) Eos % (Auto) Baso % (Auto) Lymph # (Auto) [place] # (Auto) Eos # (Auto) Baso # (Auto) Abs Immat Gran (auto) Absolute Neuts (auto) Absolute Nucleated RBC Nucleated RBC % (auto) PT INR APTT O2 Saturation 71.0 ABG pH at Pt Temp 7.31 L ABG pH (Temp Correct) 7.30 L ABG pCO2 at Pt Temp 52 H ABG pCO2 (Temp Corrct 53 H ABG pO2 at Pt Temp 47 L* ABG pO2 (Temp Correct 48 L* ABG HCO3 26 ABG Base Excess (Actual) 0.0 Sodium Potassium Chloride Carbon Dioxide Anion Gap BUN Creatinine Estim Creat Clear Calc Estimated GFR POC Glucose 152 H Random Glucose Lactic Acid Calcium Total Bilirubin Direct Bilirubin AST ALT Alkaline Phosphatase Ammonia Troponin I High Sens Total Protein Albumin Lipase Stool Occult Blood C. difficile Toxin A&B Negative C. difficile Antigen Negative C. difficile Interpret SEE NOTE COVID-19 ([facility]ILY) COVID-19 Clin Com Blood Type Antibody Screen Critical Care Time Critical Care Time (minutes): 150
[2020-12-12 09:01] LABS: Basophils Percent Auto 0.2 % (0-2); Eosinophils Percent Auto 0.1 % (0-4); Hematocrit 28.4 % (37-47); Hemoglobin 8.4 g/dl (12.0-16.0); Imm Gran Abs Auto 0.09 X10*3/uL (0.00-0.03); Imm Gran Pct Auto 0.7 % (0.0-0.4); Lymphocytes Absolute Auto 1.2 X10*3/uL (1.2-4.9); Lymphocytes Percent Auto 9.2 % (20-40); MANUAL DIFF FLAG NO; Mean Corpuscular HGB Conc 29.6 g/dl (31.0-35.0); Mean Corpuscular Hemoglobin 29.3 pg (27.0-33.0); Mean Platelet Volume 10.9 fL (9.4-12.3); Monocytes Absolute Auto 0.2 X10*3/uL (0.1-1.2); Monocytes Percent Auto 1.6 % (2-11); NRBC Pct Auto 0.2 /100WBC (0.0-0.2); Neutrophils Absolute Auto 11.4 X10*3/uL (2.0-8.3); Neutrophils Percent Auto 88.2 % (45-73); Platelet Count 133 X10*3/uL (160-400); Red Blood Count 2.87 X10*6/uL (4.20-5.50); Red Cell Distribution Width 20.7 % (11.0-16.0)
[2020-12-12] MEDS: cefEPime HCl 2 GM in 0.9 % Sodium Chloride 50 ML IV (09:03)
[2020-12-12] MEDS: metroNIDAZOLE/NS 500 MG/100 ML PIGGYBACK 100 MG IV (09:03)
[2020-12-12] MEDS: Albumin Human 25 % 100 ML IV ×2 (09:04→10:12)
[2020-12-12] MEDS: Insulin Lispro 100 UNIT/ML 3 ML VIAL SUBCUT (09:05)
[2020-12-12 09:15] LABS: Prothrombin Time 23.5 SEC (10.8-13.0)
[2020-12-12 09:36] LABS: Alanine Aminotransferase 9 U/L (0-31); Albumin Level 2.3 g/dL (3.5-5.0); Alkaline Phosphatase 546 U/L (39-117); Anion Gap 18 (12-20); Aspartate Amino Transferase 28 U/L (5-31); Bilirubin Total 2.8 mg/dL (0.0-1.0); Blood Urea Nitrogen 38 mg/dL (9-16); Calcium 7.8 mg/dL (8.4-10.2); Carbon Dioxide 23 mmol/L (22-29); Chloride 104 mmol/L (96-108); Creatinine Clr Calc Pharmacy 7.7; Estimated Glomerular Filt Rate 8; Glucose Random 182 mg/dL (60-115); Phosphorus 4.6 mg/dL (2.7-4.5); Potassium 5.5 mmol/L (3.3-5.1); Sodium 139 mmol/L (135-145); Total Protein 7.3 g/dL (6.5-8.0)
[2020-12-12] MEDS: Phenylephrine HCL 100 MG in 0.9 % Sodium Chloride 250 ML IVCONT (10:10)
--- NOTE | 2020-12-12 10:30 | MHC.CM.PN ---
Attempted to meet with pt to discuss d/c planning: pt is non responsive at this time: cachectic, lesions noted to lower/upper extremities, dry necrotic like areas to left fingers: L BKA, massive sacral wound with stringy slough, dark dried edges and purulent/sanguineous looking drainage. Pt arrived from HD with hypotension: pt is a resident of [facility] at [place]. Information obtained from EMR, pt's ICU care team, phone call with [facility] staff and phone conversation with pt's HCP Jairo. Per Jairo, pt has been at [facility] on and off for about 3 weeks. Previously she had been at [facility] and [facility]. Prior to that, pt resided with her daughter. Jairo suggests we contact his brother, HCP #2, Dariel for more detailed information - CM called: message left for callback. Jairo transferred to MD for discussion on pt' s status. Faxed HCP and MOLST form received from [facility] - MOLST not very readable d/t dark background but appears to have all resuscitated options checked off. Call placed to [facility]: spoke with Roxana? RN - inquired on state of pt's wounds/duration of, care of, etc: RN responded that she was unaware of pt's wound conditions and couldn't fax any wound care assessment notes/treatments at this time. MD to discuss goals of care with family : Fracisco states pt can return to [facility] for continuation of care if she is medically stable to do so. Report filed with SS for condition of wounds and overall poor presentation.
[2020-12-12 10:57] LABS: VBG pCO2 53 mmHg; VBG pO2 48 mmHg
[2020-12-12 10:59] LABS: VBG HCO3 26 mmol/L (22-26)
[2020-12-12 11:00] LABS: Venous Blood Gas Refer to POC result
[2020-12-12 11:02] LABS: Lactic Acid 0.6 mmol/L (0.5-2.0)
[2020-12-12 12:17] LABS: Glucose, Whole Blood 107 mg/dL (60-115)
[2020-12-12] MEDS: Naloxone HCl 0.4 MG/ML VIAL IVPUSH (12:57)
--- NOTE | 2020-12-12 14:21 | PM.PNNEP ---
Subjective Subjective Interval history: Patient seen and examined Physical Exam Vital Signs: Vital Signs: Last Vital Signs Temp 100.2 F 12/12/20 14:00 Pulse 67 12/12/20 14:00 Resp 14 12/12/20 14:00 BP 121/52 L 12/12/20 14:00 Pulse Ox 93 12/12/20 14:00 Oxygen Flow Rate 2 12/12/20 04:34 Body Mass Index 21.3 Objective Data Labs CBC & Chem 7: 12/12/20 08:45 12/12/20 08:45 Labs: Laboratory Results - last 24 hr 12/11/20 12/11/20 12/11/20 13:56 15:43 15:43 WBC 10.6 RBC 2.54 L Hgb 7.6 L Hct 25.2 L MCV 99.2 H MCH 29.9 MCHC 30.2 L RDW 21.2 H Plt Count 117 L D MPV 11.1 Immature Gran % (Auto) 0.4 Neut % (Auto) 65.5 Lymph % (Auto) 23.4 [place] % (Auto) 6.5 Eos % (Auto) 3.6 Baso % (Auto) 0.6 Lymph # (Auto) 2.5 [place] # (Auto) 0.7 Eos # (Auto) 0.4 Baso # (Auto) 0.1 Abs Immat Gran (auto) 0.04 H Absolute Neuts (auto) 6.9 Absolute Nucleated RBC 0.020 H Nucleated RBC % (auto) 0.2 PT 24.5 H D INR 2.0 H APTT 34.7 O2 Saturation ABG pH at Pt Temp ABG pH (Temp Correct) ABG pCO2 at Pt Temp ABG pCO2 (Temp Corrct ABG pO2 at Pt Temp ABG pO2 (Temp Correct ABG HCO3 ABG Base Excess (Actual) VBG pH VBG pCO2 VBG pO2 VBG HCO3 VBG O2 Saturation VBG Base Excess Sodium Potassium Chloride Carbon Dioxide Anion Gap BUN Creatinine Estim Creat Clear Calc Estimated GFR POC Glucose 120 H Random Glucose Lactic Acid Calcium Phosphorus Total Bilirubin Direct Bilirubin AST ALT Alkaline Phosphatase Ammonia Troponin I High Sens Total Protein Albumin Lipase Stool Occult Blood C. difficile Toxin A&B C. difficile Antigen C. difficile Interpret COVID-19 ([facility]) COVID-19 Clin Com Blood Type Antibody Screen 12/11/20 12/11/20 12/11/20 15:43 15:43 15:43 WBC RBC Hgb Hct MCV MCH MCHC RDW Plt Count MPV Immature Gran % (Auto) Neut % (Auto) Lymph % (Auto) [place] % (Auto) Eos % (Auto) Baso % (Auto) Lymph # (Auto) [place] # (Auto) Eos # (Auto) Baso # (Auto) Abs Immat Gran (auto) Absolute Neuts (auto) Absolute Nucleated RBC Nucleated RBC % (auto) PT INR APTT O2 Saturation ABG pH at Pt Temp ABG pH (Temp Correct) ABG pCO2 at Pt Temp ABG pCO2 (Temp Corrct ABG pO2 at Pt Temp ABG pO2 (Temp Correct ABG HCO3 ABG Base Excess (Actual) VBG pH VBG pCO2 VBG pO2 VBG HCO3 VBG O2 Saturation VBG Base Excess Sodium 140 Potassium 4.2 D Chloride 103 Carbon Dioxide 27 Anion Gap 14 BUN 32 H Creatinine 5.09 H* Estim Creat Clear Calc 8.4 Estimated GFR 9 POC Glucose Random Glucose 116 H Lactic Acid 1.1 Calcium 8.0 L Phosphorus Total Bilirubin 3.1 H Direct Bilirubin 2.6 H AST 27 D ALT < 6 Alkaline Phosphatase 519 H D Ammonia Troponin I High Sens 136.7 H Total Protein 7.1 Albumin 2.4 L Lipase 16 Stool Occult Blood C. difficile Toxin A&B C. difficile Antigen C. difficile Interpret COVID-19 ([facility]) COVID-19 Clin Com Blood Type Antibody Screen 12/11/20 12/11/20 12/11/20 15:43 17:48 19:10 WBC RBC Hgb Hct MCV MCH MCHC RDW Plt Count MPV Immature Gran % (Auto) Neut % (Auto) Lymph % (Auto) [place] % (Auto) Eos % (Auto) Baso % (Auto) Lymph # (Auto) [place] # (Auto) Eos # (Auto) Baso # (Auto) Abs Immat Gran (auto) Absolute Neuts (auto) Absolute Nucleated RBC Nucleated RBC % (auto) PT INR APTT O2 Saturation ABG pH at Pt Temp ABG pH (Temp Correct) ABG pCO2 at Pt Temp ABG pCO2 (Temp Corrct ABG pO2 at Pt Temp ABG pO2 (Temp Correct ABG HCO3 ABG Base Excess (Actual) VBG pH VBG pCO2 VBG pO2 VBG HCO3 VBG O2 Saturation VBG Base Excess Sodium Potassium Chloride Carbon Dioxide Anion Gap BUN Creatinine Estim Creat Clear Calc Estimated GFR POC Glucose Random Glucose Lactic Acid Calcium Phosphorus Total Bilirubin Direct Bilirubin AST ALT Alkaline Phosphatase Ammonia 30 Troponin I High Sens Total Protein Albumin Lipase Stool Occult Blood POSITIVE C. difficile Toxin A&B C. difficile Antigen C. difficile Interpret COVID-19 ([facility]) Negative COVID-19 Clin Com See Note Blood Type Antibody Screen 12/11/20 12/11/20 12/12/20 19:10 19:10 05:48 WBC RBC Hgb Hct MCV MCH MCHC RDW Plt Count MPV Immature Gran % (Auto) Neut % (Auto) Lymph % (Auto) [place] % (Auto) Eos % (Auto) Baso % (Auto) Lymph # (Auto) [place] # (Auto) Eos # (Auto) Baso # (Auto) Abs Immat Gran (auto) Absolute Neuts (auto) Absolute Nucleated RBC Nucleated RBC % (auto) PT INR APTT O2 Saturation 75.0 ABG pH at Pt Temp 7.27 L ABG pH (Temp Correct) 7.26 L ABG pCO2 at Pt Temp 60 H* ABG pCO2 (Temp Corrct 63 H* ABG pO2 at Pt Temp 51 L ABG pO2 (Temp Correct 55 L ABG HCO3 28 H ABG Base Excess (Actual) 0.4 VBG pH VBG pCO2 VBG pO2 VBG HCO3 VBG O2 Saturation VBG Base Excess Sodium Potassium Chloride Carbon Dioxide Anion Gap BUN Creatinine Estim Creat Clear Calc Estimated GFR POC Glucose Random Glucose Lactic Acid Calcium Phosphorus Total Bilirubin Direct Bilirubin AST ALT Alkaline Phosphatase Ammonia Troponin I High Sens 133.0 H Total Protein Albumin Lipase Stool Occult Blood C. difficile Toxin A&B C. difficile Antigen C. difficile Interpret COVID-19 ([facility]) COVID-19 Clin Com Blood Type O Positive Antibody Screen NEGATIVE 12/12/20 12/12/20 12/12/20 06:18 08:35 08:45 WBC 13.0 H RBC 2.87 L Hgb 8.4 L Hct 28.4 L MCV 99.0 H MCH 29.3 MCHC 29.6 L RDW 20.7 H Plt Count 133 L MPV 10.9 Immature Gran % (Auto) 0.7 H Neut % (Auto) 88.2 H Lymph % (Auto) 9.2 L [place] % (Auto) 1.6 L Eos % (Auto) 0.1 Baso % (Auto) 0.2 Lymph # (Auto) 1.2 [place] # (Auto) 0.2 Eos # (Auto) 0.0 Baso # (Auto) 0.0 Abs Immat Gran (auto) 0.09 H Absolute Neuts (auto) 11.4 H Absolute Nucleated RBC 0.020 H Nucleated RBC % (auto) 0.2 PT INR APTT O2 Saturation ABG pH at Pt Temp ABG pH (Temp Correct) ABG pCO2 at Pt Temp ABG pCO2 (Temp Corrct ABG pO2 at Pt Temp ABG pO2 (Temp Correct ABG HCO3 ABG Base Excess (Actual) VBG pH VBG pCO2 VBG pO2 VBG HCO3 VBG O2 Saturation VBG Base Excess Sodium Potassium Chloride Carbon Dioxide Anion Gap BUN Creatinine Estim Creat Clear Calc Estimated GFR POC Glucose 152 H Random Glucose Lactic Acid Calcium Phosphorus Total Bilirubin Direct Bilirubin AST ALT Alkaline Phosphatase Ammonia Troponin I High Sens Total Protein Albumin Lipase Stool Occult Blood C. difficile Toxin A&B Negative C. difficile Antigen Negative C. difficile Interpret SEE NOTE COVID-19 ([facility]) COVID-19 Clin Com Blood Type Antibody Screen 12/12/20 12/12/20 12/12/20 08:45 08:45 08:47 WBC RBC Hgb Hct MCV MCH MCHC RDW Plt Count MPV Immature Gran % (Auto) Neut % (Auto) Lymph % (Auto) [place] % (Auto) Eos % (Auto) Baso % (Auto) Lymph # (Auto) [place] # (Auto) Eos # (Auto) Baso # (Auto) Abs Immat Gran (auto) Absolute Neuts (auto) Absolute Nucleated RBC Nucleated RBC % (auto) PT 23.5 H INR 2.0 H APTT O2 Saturation ABG pH at Pt Temp ABG pH (Temp Correct) ABG pCO2 at Pt Temp ABG pCO2 (Temp Corrct ABG pO2 at Pt Temp ABG pO2 (Temp Correct ABG HCO3 ABG Base Excess (Actual) VBG pH VBG pCO2 VBG pO2 VBG HCO3 VBG O2 Saturation VBG Base Excess Sodium 139 Potassium 5.5 H D Chloride 104 Carbon Dioxide 23 Anion Gap 18 BUN 38 H Creatinine 5.51 H* Estim Creat Clear Calc 7.7 Estimated GFR 8 POC Glucose Random Glucose 182 H D Lactic Acid Cancelled Calcium 7.8 L Phosphorus 4.6 H Total Bilirubin 2.8 H Direct Bilirubin AST 28 ALT 9 Alkaline Phosphatase 546 H Ammonia Troponin I High Sens Total Protein 7.3 Albumin 2.3 L Lipase Stool Occult Blood C. difficile Toxin A&B C. difficile Antigen C. difficile Interpret COVID-19 ([facility]) COVID-19 [facility] Blood Type Antibody Screen 12/12/20 12/12/20 12/12/20 08:47 08:50 08:50 WBC RBC Hgb Hct MCV MCH MCHC RDW Plt Count MPV Immature Gran % (Auto) Neut % (Auto) Lymph % (Auto) [place] % (Auto) Eos % (Auto) Baso % (Auto) Lymph # (Auto) [place] # (Auto) Eos # (Auto) Baso # (Auto) Abs Immat Gran (auto) Absolute Neuts (auto) Absolute Nucleated RBC Nucleated RBC % (auto) PT INR APTT O2 Saturation TNP ABG pH at Pt Temp TNP ABG pH (Temp Correct) TNP ABG pCO2 at Pt Temp TNP ABG pCO2 (Temp Corrct TNP ABG pO2 at Pt Temp TNP ABG pO2 (Temp Correct TNP ABG HCO3 TNP ABG Base Excess (Actual) TNP VBG pH 7.30 L VBG pCO2 53 VBG pO2 48 VBG HCO3 26 VBG O2 Saturation 71.0 VBG Base Excess 0.0 Sodium Potassium Chloride Carbon Dioxide Anion Gap BUN Creatinine Estim Creat Clear Calc Estimated GFR POC Glucose Random Glucose Lactic Acid 0.6 Calcium Phosphorus Total Bilirubin Direct Bilirubin AST ALT Alkaline Phosphatase Ammonia Troponin I High Sens Total Protein Albumin Lipase Stool Occult Blood C. difficile Toxin A&B C. difficile Antigen C. difficile Interpret COVID-19 ([facility]) COVID-19 [facility] Blood Type Antibody Screen 12/12/20 12:10 WBC RBC Hgb Hct MCV MCH MCHC RDW Plt Count MPV Immature Gran % (Auto) Neut % (Auto) Lymph % (Auto) [place] % (Auto) Eos % (Auto) Baso % (Auto) Lymph # (Auto) [place] # (Auto) Eos # (Auto) Baso # (Auto) Abs Immat Gran (auto) Absolute Neuts (auto) Absolute Nucleated RBC Nucleated RBC % (auto) PT INR APTT O2 Saturation ABG pH at Pt Temp ABG pH (Temp Correct) ABG pCO2 at Pt Temp ABG pCO2 (Temp Corrct ABG pO2 at Pt Temp ABG pO2 (Temp Correct ABG HCO3 ABG Base Excess (Actual) VBG pH VBG pCO2 VBG pO2 VBG HCO3 VBG O2 Saturation VBG Base Excess Sodium Potassium Chloride Carbon Dioxide Anion Gap BUN Creatinine Estim Creat Clear Calc Estimated GFR POC Glucose 107 Random Glucose Lactic Acid Calcium Phosphorus Total Bilirubin Direct Bilirubin AST ALT Alkaline Phosphatase Ammonia Troponin I High Sens Total Protein Albumin Lipase Stool Occult Blood C. difficile Toxin A&B C. difficile Antigen C. difficile Interpret COVID-19 ([facility]) COVID-19 Clin Com Blood Type Antibody Screen Assessment & Plan Assessment and plan (1) ESRD (end stage renal disease): Status: Acute (2) Hypotension: Status: Acute (3) Altered mental status: Status: Acute (4) Pneumonia: Status: Acute (5) Anemia: Status: Acute Assessment and Plan: HD per schedule no indication for dialysis today sodium polysytyrene as needed ABx follow culture ASAF per protocol Time Spent With Patient Time: Total time spent is greater than 50% in coordination of care (as documented) at patient's floor/unit and/or counseling patient:
--- NOTE | 2020-12-12 14:59 | PC.NURSE ---
Addendum entered by Mera Carlisle RN 12/12/20 18:41: Around 1600 patient more wakeful, able to have simple conversations in Nigerien. A&Ox2 person and expressing needs. MD updated. Diabetic /low phos/low potassium/ground diet ordered per MD. Biochemistry Specialist updated, will order protein supplement in the morning. 1:1 feed required. Patient ate 25%. Wound MD at bedside. Documented wounds. Pictures, measurements, and staging done by wound MD. Orders placed. Original Note: Assumed care at 0700. Patient remains lethargic and minimally arousable to verbal commands spoken in [place]ien. Patient able to track but unable to follow commands. around 0800 Bipap removed per MD, placed on 2 L NC. MD decided to emergently place TLC to [facility]. Placement confirmed by xray. VBGs and labs collected. VBG results listed under ABGs. This RN reported to chemistry, results correctly placed under VBG, Dr. Ruelas made aware. Administered ordered albumin, antibiotics, and phenylephrine. Able to wean off Dopamine. Around 1300 patient still lethargic and unable to follow commands. MD at bedside to assess patient, arousable to noxious stimuli. Administered .4 mg of Narcan per , no significant effect noted. Wound consult placed. Awaiting beside wound eval by wound MD for staging, treatment, and further documentation. Estimated consult at 1645 per wound clinic. MD aware.
--- NOTE | 2020-12-12 17:27 | P.CONWO_ITS ---
History of Present Illness Data of Consult Service Date: 12/12/20 Requesting physician: Luis Alfredo Ruelas Primary Care Provider: Unknown Physician HPI Reason for consult: sacral wound The patient is a 60-year-old female with a complicated medical history most significant for end-stage renal disease on dialysis who has had over the last 6 months a deterioration in her health requiring urgent admission with intubation and ICU stays even a code with full resuscitation several months ago it base ellen e. She has been doing a little bit better getting outpatient dialysis when yesterday was brought into the hospital from dialysis not doing well. On examination she had a large sacral wound and question was is this is source for sepsis. She was admitted brought to the ICU and placed on pressors and was being treated and resuscitated during the day. Wound care consult is being requested to help with care. The patient has had multiple deteriorating circumstances in her health but her family still is very determined to keep her full code. She was recently diagnosed with rectal cancer last year but it seems that other than a diverting ileostomy no other significant care has been carried out for this. I also believe that the ileostomy creation was more for ischemic bowel than the diagnosis of colon cancer. The patient herself initially was not very responsive but this afternoon seems to be a little more awake and alert and following commands. Review of Systems Review of Systems: Yes Unobtainable due to mental status [facility] Medical History (Updated 12/12/20 @ 17:41 by Marianne Arriaza MD) Dialysis patient Oxygen dependent Poor historian Renal failure Surgical History (Updated 11/15/20 @ 14:48 by Ly Newman) Surgical history unknown Social History Household Members: Other Housing: Half-Way Do you presently have visiting nurse or other home services: No Unable to assess alcohol history related to: Unable to respond Alcohol intake: unknown Smoking Status: Unknown if ever smoked Smoked in Last 30 Days: No Patient Interested in Nicotine Replacement: No Patient Given Instructions on How to Stop Smoking: No Second Hand Smoke Exposure: No Use of substances other than those prescribed or required for medical reasons: Unable to respond Currently Displaying Signs/Symptoms of Drug Intoxication Withdrawal: No Spiritual Healthcare Practices: unable to respond [facility] Practices: unable to respond Cultural Healthcare Practices: unable to respond Advance Directives: No Advance Directives Information Provided: No Recently lost weight without trying: Unsure service: No Current occupational status: unemployed and disabled Meds Allergies Allergy/AdvReac Type Severity Reaction Status Date / Time Penicillins [PENICILLINS] Allergy Unknown Rash Verified 09/21/20 11:45 Active Medications: Current Medications Generic Name Dose Route Start Last Admin Trade Name Freq PRN Reason Stop Dose Admin Dopamine HCl/Dextrose 400 mg in 250 mls @ 0 mls/hr 12/11/20 18:45 12/12/20 10:55 IVCONT 0 mcg/kg/min .Q0M JENIFER 0 mls/hr Titration Protocol Per Protocol Cefepime HCl 1 gm/ Sodium 50 mls @ 100 mls/hr 12/13/20 17:00 Chloride IV DAILY@1700 JENIFER Vancomycin HCl 750 mg/ Sodium 265 mls @ 265 mls/hr 12/13/20 18:00 Chloride IV MOWEFR@1800 JENIFER Phenylephrine HCl 100 mg/ 260 mls @ 0 mls/hr 12/12/20 09:45 12/12/20 17:05 Sodium Chloride IVCONT 0.5 mcg/kg/min .Q0M JENIFER 3.86 mls/hr Titration Protocol Per Protocol Insulin Human Lispro 0 unit 12/12/20 06:15 12/12/20 12:57 Insulin Lispro 100 Unit/Ml 3 Ml Vial SUBCUT Not Given Q6H [facility] Protocol Pantoprazole Sodium 40 mg 12/12/20 18:00 Pantoprazole Sodium 40 Mg/10 Ml Vial IVPUSH BID@0630,1630 [facility] Pharmacy Consult 1 each 12/12/20 05:57 Consult Rx Vancomycin Dosing MISCELLANE DAILY PRN Consult order Home Medications Medication Instructions Recorded Confirmed Last Taken Type Nephro-Huan 1 tab PO DAILY 09/20/20 12/12/20 Unknown History acetaminophen 650 mg PO Q4H PRN 09/20/20 12/12/20 Unknown History atorvastatin 20 mg PO BEDTIME 09/20/20 12/12/20 Unknown History midodrine 5 mg PO TID 09/20/20 12/12/20 Unknown History mirtazapine [Remeron] 7.5 mg PO BEDTIME 09/20/20 12/12/20 Unknown History sevelamer carbonate 800 mg PO TID 09/20/20 12/12/20 Unknown History cholecalciferol (vitamin D3) 125 mcg PO DAILY 12/12/20 12/12/20 Unknown History fluoxetine 1 tab PO DAILY 12/12/20 12/12/20 Unknown History lidocaine 1 appl TOPICAL DAILY 12/12/20 12/12/20 Unknown History meropenem 1 g IV DAILY 12/12/20 12/12/20 Unknown History oxycodone 5 mg PO Q4H PRN 12/12/20 12/12/20 Unknown History oxycodone 10 mg PO Q4H PRN 12/12/20 12/12/20 Unknown History pantoprazole 20 mg PO DAILY 12/12/20 12/12/20 Unknown History quetiapine 1 tab PO BEDTIME 12/12/20 12/12/20 Unknown History Physical Exam Vital Signs and Narrative: Vital Signs: Last Vital Signs Temp 98.6 F 12/12/20 17:00 Pulse 64 12/12/20 17:00 Resp 21 H 12/12/20 17:00 BP 84/46 L 12/12/20 17:00 Pulse Ox 95 12/12/20 17:00 Oxygen Flow Rate 2 12/12/20 04:34 Body Mass Index 21.3 Const: General: cooperative and awake Skin: Other: Her bilateral hip to buttock areas have un stage herbal wounds. On the left side it is more some surface leathery gangrenous tissue that is relatively dry but on the right hip it is more dry eschar gangrene. This area does not appear to be exudative The entire sacral area going towards the upper buttocks on the left and right side consists of an open wound which is stage IV. Exposed bone in muscle is easily identified with some slough necrotic material centrally. The dimensions of this wound are the largest at 15 x 15 cm x 5 cm depth. Extrem: Other: Bilateral lower extremities have gooden along her legs with old scars from scabbed wounds. Her left foot has dry gangrene along the distal half of her forefoot with a recent auto amputation of part of 1 of her toes. The left heel is dry with a large area of dry gangrene. Results Labs CBC and Chem 7: 12/12/20 08:45 12/12/20 08:45 Labs: Laboratory Results - last 24 hr 12/11/20 12/11/20 12/11/20 13:56 15:43 17:48 MCV MCH MCHC RDW Plt Count MPV Immature Gran % (Auto) Neut % (Auto) Lymph % (Auto) Early % (Auto) Eos % (Auto) Baso % (Auto) Lymph # (Auto) Early # (Auto) Eos # (Auto) Baso # (Auto) Abs Immat Gran (auto) Absolute Neuts (auto) Absolute Nucleated RBC Nucleated RBC % (auto) PT INR O2 Saturation ABG pH at Pt Temp ABG pH (Temp Correct) ABG pCO2 at Pt Temp ABG pCO2 (Temp Corrct ABG pO2 at Pt Temp ABG pO2 (Temp Correct ABG HCO3 ABG Base Excess (Actual) VBG pH VBG pCO2 VBG pO2 VBG HCO3 VBG O2 Saturation VBG Base Excess Anion Gap Estim Creat Clear Calc Estimated GFR POC Glucose 120 H Random Glucose Lactic Acid Calcium Phosphorus Total Bilirubin Direct Bilirubin 2.6 H AST ALT Alkaline Phosphatase Troponin I High Sens Total Protein Albumin Lipase 16 Stool Occult Blood POSITIVE C. difficile Toxin A&B C. difficile Antigen C. difficile Interpret COVID-19 ([facility]ILY) COVID-19 Clin Com Blood Type Antibody Screen 12/11/20 12/11/20 12/11/20 19:10 19:10 19:10 MCV MCH MCHC RDW Plt Count MPV Immature Gran % (Auto) Neut % (Auto) Lymph % (Auto) Early % (Auto) Eos % (Auto) Baso % (Auto) Lymph # (Auto) Early # (Auto) Eos # (Auto) Baso # (Auto) Abs Immat Gran (auto) Absolute Neuts (auto) Absolute Nucleated RBC Nucleated RBC % (auto) PT INR O2 Saturation ABG pH at Pt Temp ABG pH (Temp Correct) ABG pCO2 at Pt Temp ABG pCO2 (Temp Corrct ABG pO2 at Pt Temp ABG pO2 (Temp Correct ABG HCO3 ABG Base Excess (Actual) VBG pH VBG pCO2 VBG pO2 VBG HCO3 VBG O2 Saturation VBG Base Excess Anion Gap Estim Creat Clear Calc Estimated GFR POC Glucose Random Glucose Lactic Acid Calcium Phosphorus Total Bilirubin Direct Bilirubin AST ALT Alkaline Phosphatase Troponin I High Sens 133.0 H Total Protein Albumin Lipase Stool Occult Blood C. difficile Toxin A&B C. difficile Antigen C. difficile Interpret COVID-19 ([facility]ILY) Negative COVID-19 Clin Com See Note Blood Type O Positive Antibody Screen NEGATIVE 12/12/20 12/12/20 12/12/20 05:48 06:18 08:35 MCV MCH MCHC RDW Plt Count MPV Immature Gran % (Auto) Neut % (Auto) Lymph % (Auto) Early % (Auto) Eos % (Auto) Baso % (Auto) Lymph # (Auto) Early # (Auto) Eos # (Auto) Baso # (Auto) Abs Immat Gran (auto) Absolute Neuts (auto) Absolute Nucleated RBC Nucleated RBC % (auto) PT INR O2 Saturation 75.0 ABG pH at Pt Temp 7.27 L ABG pH (Temp Correct) 7.26 L ABG pCO2 at Pt Temp 60 H* ABG pCO2 (Temp Corrct 63 H* ABG pO2 at Pt Temp 51 L ABG pO2 (Temp Correct 55 L ABG HCO3 28 H ABG Base Excess (Actual) 0.4 VBG pH VBG pCO2 VBG pO2 VBG HCO3 VBG O2 Saturation VBG Base Excess Anion Gap Estim Creat Clear Calc Estimated GFR POC Glucose 152 H Random Glucose Lactic Acid Calcium Phosphorus Total Bilirubin Direct Bilirubin AST ALT Alkaline Phosphatase Troponin I High Sens Total Protein Albumin Lipase Stool Occult Blood C. difficile Toxin A&B Negative C. difficile Antigen Negative C. difficile Interpret SEE NOTE COVID-19 ([facility]) COVID-19 Clin Com Blood Type Antibody Screen 12/12/20 12/12/20 12/12/20 08:45 08:45 08:45 MCV 99.0 H MCH 29.3 MCHC 29.6 L RDW 20.7 H Plt Count 133 L MPV 10.9 Immature Gran % (Auto) 0.7 H Neut % (Auto) 88.2 H Lymph % (Auto) 9.2 L Early % (Auto) 1.6 L Eos % (Auto) 0.1 Baso % (Auto) 0.2 Lymph # (Auto) 1.2 Early # (Auto) 0.2 Eos # (Auto) 0.0 Baso # (Auto) 0.0 Abs Immat Gran (auto) 0.09 H Absolute Neuts (auto) 11.4 H Absolute Nucleated RBC 0.020 H Nucleated RBC % (auto) 0.2 PT 23.5 H INR 2.0 H O2 Saturation ABG pH at Pt Temp ABG pH (Temp Correct) ABG pCO2 at Pt Temp ABG pCO2 (Temp Corrct ABG pO2 at Pt Temp ABG pO2 (Temp Correct ABG HCO3 ABG Base Excess (Actual) VBG pH VBG pCO2 VBG pO2 VBG HCO3 VBG O2 Saturation VBG Base Excess Anion Gap 18 Estim Creat Clear Calc 7.7 Estimated GFR 8 POC Glucose Random Glucose 182 H D Lactic Acid Calcium 7.8 L Phosphorus 4.6 H Total Bilirubin 2.8 H Direct Bilirubin AST 28 ALT 9 Alkaline Phosphatase 546 H Troponin I High Sens Total Protein 7.3 Albumin 2.3 L Lipase Stool Occult Blood C. difficile Toxin A&B C. difficile Antigen C. difficile Interpret COVID-19 ([facility]) COVID-19 [employer]™ Blood Type Antibody Screen 12/12/20 12/12/20 12/12/20 08:47 08:47 08:50 MCV MCH MCHC RDW Plt Count MPV Immature Gran % (Auto) Neut % (Auto) Lymph % (Auto) Early % (Auto) Eos % (Auto) Baso % (Auto) Lymph # (Auto) Early # (Auto) Eos # (Auto) Baso # (Auto) Abs Immat Gran (auto) Absolute Neuts (auto) Absolute Nucleated RBC Nucleated RBC % (auto) PT INR O2 Saturation TNP ABG pH at Pt Temp TNP ABG pH (Temp Correct) TNP ABG pCO2 at Pt Temp TNP ABG pCO2 (Temp Corrct TNP ABG pO2 at Pt Temp TNP ABG pO2 (Temp Correct TNP ABG HCO3 TNP ABG Base Excess (Actual) TNP VBG pH VBG pCO2 VBG pO2 VBG HCO3 VBG O2 Saturation VBG Base Excess Anion Gap Estim Creat Clear Calc Estimated GFR POC Glucose Random Glucose Lactic Acid Cancelled 0.6 Calcium Phosphorus Total Bilirubin Direct Bilirubin AST ALT Alkaline Phosphatase Troponin I High Sens Total Protein Albumin Lipase Stool Occult Blood C. difficile Toxin A&B C. difficile Antigen C. difficile Interpret COVID-19 ([facility]ILY) COVID-19 [employer] Blood Type Antibody Screen 12/12/20 12/12/20 08:50 12:10 MCV MCH MCHC RDW Plt Count MPV Immature Gran % (Auto) Neut % (Auto) Lymph % (Auto) Early % (Auto) Eos % (Auto) Baso % (Auto) Lymph # (Auto) Early # (Auto) Eos # (Auto) Baso # (Auto) Abs Immat Gran (auto) Absolute Neuts (auto) Absolute Nucleated RBC Nucleated RBC % (auto) PT INR O2 Saturation ABG pH at Pt Temp ABG pH (Temp Correct) ABG pCO2 at Pt Temp ABG pCO2 (Temp Corrct ABG pO2 at Pt Temp ABG pO2 (Temp Correct ABG HCO3 ABG Base Excess (Actual) VBG pH 7.30 L VBG pCO2 53 VBG pO2 48 VBG HCO3 26 VBG O2 Saturation 71.0 VBG Base Excess 0.0 Anion Gap Estim Creat Clear Calc Estimated GFR POC Glucose 107 Random Glucose Lactic Acid Calcium Phosphorus Total Bilirubin Direct Bilirubin AST ALT Alkaline Phosphatase Troponin I High Sens Total Protein Albumin Lipase Stool Occult Blood C. difficile Toxin A&B C. difficile Antigen C. difficile Interpret COVID-19 ([facility]) COVID-19 Clin Com Blood Type Antibody Screen Imaging Radiologist's Impressions: Impressions Head CT 12/11/20 16:25 IMPRESSION: No CT evidence of acute intracranial pathology. Abdomen/Pelvis CT 12/11/20 17:29 IMPRESSION: 1. Multifocal airspace opacities in the left greater than the right lower lobes. Additional areas of streaky and patchy opacities. Findings could reflect infectious or inflammatory process. Recommend follow up imaging post treatment. 2. Multiple pulmonary nodules. Larger nodule measures 5 mm. According to the UPDATED 2017 Fleischner Society recommendations, the advised follow up imaging for solid nodules < 6 mm is: LOW RISK PATIENT: No routine follow up. HIGH RISK PATIENT: Optional CT at 12 months. 3. Large posterior decubitus ulcer in the pelvic region, extending to the underlying sacrum and coccyx. Osteomyelitis would need to be considered and cannot be excluded on this current CT study. Consider further evaluation with bone scan or MRI may be helpful. 4. Apparent wall thickening of the stomach, from lack of distention versus gastritis. 5. Colostomy in the right lower quadrant. There is a loop of small bowel extending through the colostomy opening in the right lower quadrant, but there is no evidence of bowel obstruction. 6. Nonspecific prominent haziness in the mesentery. 7. Marked extensive atherosclerotic vascular calcification. Chest CT 12/11/20 17:29 IMPRESSION: 1. Multifocal airspace opacities in the left greater than the right lower lobes. Additional areas of streaky and patchy opacities. Findings could reflect infectious or inflammatory process. Recommend follow up imaging post treatment. 2. Multiple pulmonary nodules. Larger nodule measures 5 mm. According to the UPDATED 2017 Fleischner Society recommendations, the advised follow up imaging for solid nodules < 6 mm is: LOW RISK PATIENT: No routine follow up. HIGH RISK PATIENT: Optional CT at 12 months. 3. Large posterior decubitus ulcer in the pelvic region, extending to the underlying sacrum and coccyx. Osteomyelitis would need to be considered and cannot be excluded on this current CT study. Consider further evaluation with bone scan or MRI may be helpful. 4. Apparent wall thickening of the stomach, from lack of distention versus gastritis. 5. Colostomy in the right lower quadrant. There is a loop of small bowel extending through the colostomy opening in the right lower quadrant, but there is no evidence of bowel obstruction. 6. Nonspecific prominent haziness in the mesentery. 7. Marked extensive atherosclerotic vascular calcification. Chest X-Ray 12/12/20 08:28 IMPRESSION: New left internal jugular central venous catheter with tip at the junctions of the innominate and superior vena cava. Curvilinear density about the left hemithorax likely related to skinfold however pneumothorax cannot be definitely ruled out. Would recommend a follow-up chest x-ray later today if patient is not symptomatic. Appearance of acute left rib fractures as noted above. Review of CT scan of December 11, 2020 demonstrates multiple left-sided rib fractures involving the third through seventh ribs. This critical result was discussed with Dr. Ruelas at 9:00 AM on December 12, 2020 and it was ascertained that the content and urgency of the report was understood at the time of direct communication. Assessment and Plan (1) ESRD (end stage renal disease): Status: Acute (2) Hypotension: Status: Acute (3) Altered mental status: Status: Acute (4) Pneumonia: Status: Acute (5) Anemia: Status: Acute (6) Pressure injury of sacral region, stage 4: Problem details: This wound is really quite large in quite significant. It may be a bit of an issue in regard to sepsis but I think right now it is more for chronic wound. It seems like it appeared and has gotten significantly larger over the last 6 months. Currently our plan would be to carry out Dakin's solution dressing changes BID for the next week to 2 and clean this up. This may get us to the point where some Isolated debridement may be able to take down any residual necrotic tissue. If the patient continues to do well suggest trial of a wound VAC. All of this must also occur concurrent with increased nutritional support good protein intake close diabetic control and pressure offloading positioning. If this is getting worse requiring sharp removal of the necrotic tissue surgical consultation is recommended Status: Acute (7) Pressure injury, unstageable, with eschar: Problem details: In regard to these un stage double eschar recommend pressure offloading Betadine paint and debridement as necessary. Status: Acute (8) Dry gangrene: Problem details: In regard to dry gangrene of her toes I think her perfusion is obviously compromise in being on dialysis an being ill makes things worse. The dry gangrene is stable and would just try to maintain in this state and prevent wet gangrene from setting in as this increases the septic problems Status: Acute ASAF per protocol
[2020-12-12] MEDS: Sodium Hypochlorite 0.125% 473 ML SOLUTION 1 APPL TOPICAL (17:34)
[2020-12-12] MEDS: Pantoprazole Sodium 40 MG/10 ML VIAL IVPUSH (17:40)
[2020-12-12] MEDS: HYDROmorphone HCl 2 MG TABLET PO ×3 (17:50→21:46)
[2020-12-12 18:42] LABS: Glucose, Whole Blood 113 mg/dL (60-115)
--- NOTE | 2020-12-12 22:27 | PC.NURSE ---
pt has had 2 episodes where she is screaming and c/o of 10/10 back pain. she has significant skin break down which has been documented by photographic documentation. she is frail and grossly debilitated. medicated with dilaudid 2 mg po every 2 hours for pain. after receiving pain medication, pt is repositioned. resp effort is regular unlabored. lungs coarse clear. ecg displays sr with pacs. she does take pain pill with sips of gingerale. otherwise she is disinterested in food and drink. anuric. hd catheter right subclavian intact. b/p has been in the low 100s mmhg.
[2020-12-13] VITALS: BP 113/52; PULSE 64; RESP 12; TEMP 37.2; O2SAT 95
[2020-12-13] MEDS: HYDROmorphone HCl 2 MG TABLET PO (00:33)
--- NOTE | 2020-12-13 00:46 | CONS_ITS ---
DATE OF SERVICE: HISTORY OF PRESENT ILLNESS: This is a 60-year-old patient, well known to the renal service, with a history of end-stage renal disease and frequent admission to the hospital, was admitted with septic shock and pneumonia and is currently in the intensive care unit. The patient was transferred to the emergency room after her dialysis session, and she was noted to be hypotensive with systolic blood pressure down to the 60s and altered mental status. The patient received IV fluid, and given the possible infiltrate on chest x-ray, she was started on antibiotics. PAST MEDICAL HISTORY: Remarkable for end-stage renal disease, diabetes mellitus, hypertension, GERD, dyslipidemia, drug abuse, history of C diff, pancreatitis, hepatitis C, malignant neoplasm of the colon, anemia, atrial fibrillation. PAST SURGICAL HISTORY: Notable for left below-knee amputation, severe debridement of sacral ulcer, colostomy. MEDICATIONS: Medications as inpatient and outpatient were reviewed. ALLERGIES: SHE IS ALLERGIC TO PENICILLIN. SOCIAL HISTORY: She has a history of drug abuse. FAMILY HISTORY: Negative. REVIEW OF SYSTEMS: Ten-point review of systems negative, except for pertinent in the history of present illness. PHYSICAL EXAMINATION: VITAL SIGNS: Blood pressure is 121/52, heart rate 67, respiratory rate 14, temperature 100.2. CONSTITUTIONAL: Looks her stated age. No acute distress. NEUROLOGIC: She is lethargic, somnolent. HEAD: Atraumatic and normocephalic. NECK: Supple. LUNGS: Decreased breath sounds. CARDIOVASCULAR: S1, S2. No rub. ABDOMEN: Soft, nontender. EXTREMITIES: With the left below-knee amputation and right lower extremity edema. LABS: White count 13, hemoglobin 8.4, platelet count of 133. Sodium 139, potassium 5.4, chloride 104, CO2 of 23, creatinine 5.1. PLAN: Will be to resume hemodialysis as per schedule. We will optimize volume status. Started on Epogen. We will follow closely on culture and have her on broad-spectrum antibiotics. We will dose her vancomycin after dialysis. Thank you for allowing me to participate in the care of this patient. MD YENIFER Ortega/MODL / [id number]
[2020-12-13] MEDS: HYDROmorphone HCl 1 MG/ML SYRINGE IVPUSH ×4 (00:56→10:59)
[2020-12-13 01:00] VITALS: PULSE 66; RESP 16; TEMP 37.4; O2SAT 100
--- NOTE | 2020-12-13 02:45 | PC.NURSE ---
CARE ASSUMED 23:15...AWAKE...AGITATED...C/O 10/10 GENERALIZED AND BACK PAIN...BP/RR STABLE..REMAINS OFF IV PRESSORS...MEDICATED WITH PRN PO DILAUDID..SLIGHT/MODERATE IMPROVEMENT IN DISCOMFORT...PER ICU LITTLE EUGENE AFTER DISCUSSION WITH FAMILY PAATIENT NOW ENGINEERING EXECUTIVE STATUS..PRN IV DILAUDID ORDERED AND GIVEN...MORE RESTFULLREQUESTED :SOMETHING TO EAT ..TAKING FEW BITES/SPOONFULS PUDDING/CUSTARD WITH ASSISTANCE...NSR..NO ECTOPY...SAO2 99-100% ON ROOM AIR..REFUSED FURTHER SAO2 MONITORING AND NOW ENGINEERING EXECUTIVE STATUS
--- NOTE | 2020-12-13 02:59 | P.ACPN_ITS ---
Documented by User: LITTLE Nascimento 12/13/20 19:18 Advanced Care Planning Note Advanced Care Planning Note Time spent (in minutes): 75 Narrative: A lengthy discussion was held initially with patient's healthcare proxy 1 of her children Mr. Dariel Beal phone number [phone], proximally 40 minutes were spent discussing with him in significant detail most of the patient's comorbidities and current active issues as well as significant illness and clinical scenario, nutritional status, quality of life, multiple wounds among others. It seemed that he would not understand fully the significance of his mother's deteriorating is state. In addition he does acknowledge that they have not been able to visit their mother for several months given the pandemic and they have only had the chance to see her via video calls. They have not been aware of the significant wounds described and he accepted to have features of our records sent to him so that he can the visualized degree of them. In addition I took the time to explain all of the labs, different issues that she has as well as her quality of life and current nutritional status, weight and healing problems of the wounds. After listening to him for long period of time, he finally requested that in order to make a more educated decision, he would like to have his aunt (patient's sister) to be involving conversation, we did perform a 3 week all to connect with Iliana who is a retired nurse. Once again the above was discussed with her and rate rated, she seemed to understand fully what we were dealing with and had a kind talk with her nephew; radiator rating what I had discussed with him and the need of making a different type of decision other done full code, perhaps DNR, DNI versus comfort measures only as these had been in 310 by her in the past but they had refused particularly given the lack of acceptance by the other son Mr. Marvel Beal. Finally after prolonged discussion approximately 60 minutes or more, Mr. Panchito Beal and his onto decided the best for the patient would be to make her comfortable. They would like to be sure that they can visit their mom. He is okay with withdrawing all care at this point and to administer only opiates and sedatives to keep the patient comfortable as they do not want her to suffer anymore. He understands that her life could and fairly quick particularly if she does not receive dialysis but also understands that she would not tolerate well if she was to have CPR/ intubation, therefore is of their best interest to have the patient become comfort measures only so that she does not continue to suffer. 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 The patient did ask me for something to eat and we provided to her Jell-O, ice cream, pudding which she had to be fed by 1 of the nurses. She has been requiring IV and p.o. Dilaudid due to significant complaints of pain is 8 aches, she has been yelling and screaming complaining of them; the administration of p.r.n. breakthrough Dilaudid has helped significantly. If the patient was to survive the hospitalization, the patient's son is in agreement to send her to a hospice facility. He would like to visit her tomorrow morning and we reassured him that we will do everything possible to have him visit tomorrow morning as desired. Case was discussed in detail with Dr. Ruelas. He is aware of all the above as well as the plan of care for this patient. 0530 patient has been receiving opioids as needed orally and IV with good management of her pain. The patient will be transferred out of the ICU to a regular room, the plan of getting the patient into HOSPICE has been discussed with the hospitalist Dr. James. Total time spent during this conversation with family members in regards to the above goals of care 75 minutes. Problems Discussed (1) ESRD (end stage renal disease): (2) Hypotension: (3) Altered mental status: (4) Pneumonia: (5) Anemia: (6) Pressure injury of sacral region, stage 4: (7) Pressure injury, unstageable, with eschar: (8) Dry gangrene:
--- NOTE | 2020-12-13 06:42 | PC.NURSE ---
TRANSFERRED TO [facility] VIA BED
--- NOTE | 2020-12-13 09:02 | P.CDIC_ITS ---
CDI Concurrent Query Service Date: 12/14/20 Documentation Clarification: Please clarify if you are treating a proba ble/suspected/likely or confirmed: Mild Protein Calorie Malnutrition Moderate Protein Calorie Malnutrition Severe Protein Calorie Malnutrition Provider Response: Severe Protein-Calorie Malnutrition PLEASE DO NOT DELETE/MODIFY EXISTING CONTENT Additional information is needed in order to code to the highest accuracy and appropriate Severity of Illness (SOI). Please clarify the information noted below in your progress notes and discharge summary. Risk Factors/Clinical Indicators/Treatments 60 year old female admitted with altered mental status, hypotension BP 60/30 after dialysis, intermittent Kussmal breathing, obtunded. HT. 5' WT. 49.5 kg BMI 21.3 Per H&P: Cachexia, wasted, Malnutrition Total protein 7.3 Albumin 2.3 CDS: Emma Dale RN Contact Number: [phone] Please Review the information above and exercise your independent professional judgment in responding to the query. If you concur, pleas document in the PROGRESS NOTES and DISCHARGE SUMMARY. If you do not agree with the query, please document in the query above. THIS QUERY IS PART OF THE PERMANENT MEDICAL RECORD
[2020-12-13] MEDS: LORazepam 2 MG/ML VIAL 1 MG IVPUSH (11:42)
[2020-12-13 12:25] VITALS: BP 98/52; PULSE 57; RESP 16; TEMP 36.2; O2SAT 94
--- NOTE | 2020-12-13 12:32 | MHC.CM.PN ---
per rounds pt is staker surveying cm contiuing to follow pt from [facility] filed with gss
[2020-12-13 12:55] VITALS: BMI 21.3
--- NOTE | 2020-12-13 13:01 | MHC.CLN ---
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
[2020-12-13 13:41] LABS: Eosinophils Percent Auto 0.1 % (0-4); Hemoglobin 7.8 g/dl (12.0-16.0); MANUAL DIFF FLAG SCAN; Mean Corpuscular Volume 96.9 fL (80-98); NRBC Pct Auto 0.2 /100WBC (0.0-0.2); PLT CLUMP 1; SCAN SMEAR FLAG 1
[2020-12-13 13:42] LABS: Basophils Percent Auto 0.2 % (0-2); Hematocrit 25.1 % (37-47); Imm Gran Abs Auto 0.09 X10*3/uL (0.00-0.03); Imm Gran Pct Auto 0.7 % (0.0-0.4); Lymphocytes Absolute Auto 2.2 X10*3/uL (1.2-4.9); Lymphocytes Percent Auto 17.9 % (20-40); Mean Corpuscular HGB Conc 31.1 g/dl (31.0-35.0); Mean Corpuscular Hemoglobin 30.1 pg (27.0-33.0); Mean Platelet Volume 11.1 fL (9.4-12.3); Monocytes Absolute Auto 0.5 X10*3/uL (0.1-1.2); Monocytes Percent Auto 4.1 % (2-11); Neutrophils Absolute Auto 9.5 X10*3/uL (2.0-8.3); Platelet Count 122 X10*3/uL (160-400); Red Blood Count 2.59 X10*6/uL (4.20-5.50); Red Cell Distribution Width 21.4 % (11.0-16.0); White Blood Count 12.4 X10*3/uL (4.8-10.8)
[2020-12-13 13:44] LABS: SLIDE REVIEW VERIFIED
[2020-12-13 14:00] LABS: Alanine Aminotransferase < 6 U/L (0-31); Albumin Level 2.8 g/dL (3.5-5.0); Alkaline Phosphatase 595 U/L (39-117); Anion Gap 20 (12-20); Aspartate Amino Transferase 26 U/L (5-31); Bilirubin Total 2.3 mg/dL (0.0-1.0); Blood Urea Nitrogen 52 mg/dL (9-16); Calcium 7.6 mg/dL (8.4-10.2); Carbon Dioxide 20 mmol/L (22-29); Chloride 106 mmol/L (96-108); Glucose Random 176 mg/dL (60-115); Potassium 5.2 mmol/L (3.3-5.1); Sodium 141 mmol/L (135-145); Total Protein 7.7 g/dL (6.5-8.0)
[2020-12-13 14:03] LABS: Creatinine Clr Calc Pharmacy 6.4; Estimated Glomerular Filt Rate 6
[2020-12-13] MEDS: Piperacillin Sodium/Tazobactam 2.25 GM in 0.9 % Sodium Chloride 50 ML IV ×2 (14:09→18:23)
--- NOTE | 2020-12-13 14:39 | P.PNNP_ITS ---
Subjective Subjective Date of Service: 12/13/20 Interval history: seen and examined events reviewed discussed with daughter in law Arielle confused Physical Exam Vital Signs: Vital Signs: Last Vital Signs Temp 97.1 F 12/13/20 12:25 Pulse 57 12/13/20 12:25 Resp 16 12/13/20 12:25 BP 98/52 L 12/13/20 12:25 Pulse Ox 94 12/13/20 12:25 Oxygen Flow Rate 2 12/12/20 04:34 Body Mass Index 21.3 Const: General: no acute distress HENMT: Head: Yes normocephalic and Yes atraumatic Neck: Neck: Yes supple Resp: Auscultation: diminished lung sounds Cardio: Heart sounds: S1 normal heart sound present and S2 normal heart sound present GI: Palpation (GI): Soft to palpation and nontender Objective Data Labs CBC & Chem 7: 12/13/20 13:14 12/13/20 13:14 Labs: Laboratory Results - last 24 hr 12/12/20 12/13/20 12/13/20 17:33 13:14 13:14 WBC 12.4 H RBC 2.59 L Hgb 7.8 L Hct 25.1 L MCV 96.9 MCH 30.1 MCHC 31.1 RDW 21.4 H Plt Count 122 L MPV 11.1 Immature Gran % (Auto) 0.7 H Neut % (Auto) 77.0 H Lymph % (Auto) 17.9 L [place] % (Auto) 4.1 Eos % (Auto) 0.1 Baso % (Auto) 0.2 Lymph # (Auto) 2.2 [place] # (Auto) 0.5 Eos # (Auto) 0.0 Baso # (Auto) 0.0 Abs Immat Gran (auto) 0.09 H Absolute Neuts (auto) 9.5 H Absolute Nucleated RBC 0.020 H Nucleated RBC % (auto) 0.2 Smear Tech's Comments VERIFIED Sodium 141 Potassium 5.2 H Chloride 106 Carbon Dioxide 20 L Anion Gap 20 BUN 52 H Creatinine 6.66 H* Estim Creat Clear Calc 6.4 Estimated GFR 6 POC Glucose 113 Random Glucose 176 H Calcium 7.6 L Total Bilirubin 2.3 H AST 26 ALT < 6 Alkaline Phosphatase 595 H Total Protein 7.7 Albumin 2.8 L D Microbiology Microbiology Results: Microbiology 12/11/20 15:43 Blood - Venous Blood Culture - Preliminary No growth after 24 hours. 12/11/20 15:00 Blood - Venous Blood Culture - Preliminary No growth after 24 hours. Assessment & Plan Assessment and plan (1) ESRD (end stage renal disease): Status: Acute (2) Hypotension: Status: Acute (3) Altered mental status: Status: Acute (4) Pneumonia: Status: Acute (5) Anemia: Status: Acute Assessment and Plan: will plan HD agan given change in code status sodium polysytyrene as needed ABx follow culture ASAF per protocol Time Spent With Patient Time: Total time spent is greater than 50% in coordination of care (as documented) at patient's floor/unit and/or counseling patient:
[2020-12-13 14:52] LABS: Erythrocyte Sedimentation Rate 116 MM/HR (0-20)
--- NOTE | 2020-12-13 14:58 | P.PNIM_ITS ---
Subjective Subjective Date of Service: 12/13/20 Interval History: Patient seen and examined at bedside. I also had extensive discussion with her son Dariel who was also at bedside with his and has his onto is a sister of the patient on the phone as well as his other brother on the phone discussing her code. At this time family reports that they misunderstood what STAIN APPLICATOR entailed and at this time they want her to be switched to full code. They want full resuscitation, full IV medications, they want her to be placed back on dialysis. At this time they are not ready to make patient STAIN APPLICATOR and or DNR DNI and would like her to have full medical management. Patient received Dilaudid and Ativan prior to my around, but she appears on pain, when I try to examine her wounds, patient grimaced, moaned in pain, is unable to answer questions at this time. Physical Exam Vital Signs: Vital Signs: Last Vital Signs Temp 97.1 F 12/13/20 12:25 Pulse 57 12/13/20 12:25 Resp 16 12/13/20 12:25 BP 98/52 L 12/13/20 12:25 Pulse Ox 94 12/13/20 12:25 Oxygen Flow Rate 2 12/12/20 04:34 Body Mass Index 21.3 Const: Other: Obtunded, but response to pain General: ill appearing and p atient obtunded Orientation/consciousness: patient obtunded Resp: Effort & Inspection: normal respiratory effort Cardio: Rate: regular rate Rhythm: regular rhythm GI: Palpation (GI): Soft to palpation Auscultation: normal bowel sounds Skin: General skin exam: no rashes or lesions noted Neuro: General: patient obtunded Cognition (Neuro): normal cognition Extrem: General: Yes normal to inspection and Yes no pedal edema Objective Data Current Medications Generic Name Dose Route Start Last Admin Trade Name Freq PRN Reason Stop Dose Admin Hydromorphone HCl 2 mg 12/12/20 17:43 12/13/20 00:33 Hydromorphone Hcl 2 Mg Tablet PO 2 mg Q2H PRN Administration Pain, Moderate (Pain Scale 4-6 Hydromorphone HCl 1 mg 12/13/20 04:35 12/13/20 10:59 Hydromorphone Hcl 1 Mg/Ml Syringe IVPUSH 1 mg Q1H PRN Administration breakthru pain Piperacillin Sod/Tazobactam 50 mls @ 100 mls/hr 12/13/20 12:45 12/13/20 14:39 Sod 2.25 gm/ Sodium Chloride IV Infused Q6H JENIFER Infusion Lorazepam 1 mg 12/13/20 11:33 12/13/20 11:42 Lorazepam 2 Mg/Ml Vial IVPUSH 1 mg Q4H PRN Administration anxiety/restlessness Pharmacy Consult 1 each 12/13/20 12:16 Consult Rx Vancomycin Dosing MISCELLANE DAILY PRN Consult order Labs CBC & Chem 7: 12/13/20 13:14 12/13/20 13:14 Microbiology Microbiology Results: Microbiology 12/11/20 15:43 Blood - Venous Blood Culture - Preliminary No growth after 24 hours. 12/11/20 15:00 Blood - Venous Blood Culture - Preliminary No growth after 24 hours. Assessment and Plan (1) Dry gangrene: Problem details: In regard to dry gangrene of her toes I think her perfusion is obviously compromise in being on dialysis an being ill makes things worse. The dry gangrene is stable and would just try to maintain in this state and prevent wet gangrene from setting in as this increases the septic problems Status: Acute (2) Pressure injury, unstageable, with eschar: Problem details: In regard to these un stage double eschar recommend pressure offloading Betadine paint and debridement as necessary. Status: Acute (3) Pressure injury of sacral region, stage 4: Problem details: This wound is really quite large in quite significant. It may be a bit of an issue in regard to sepsis but I think right now it is more for chronic wound. It seems like it appeared and has gotten significantly larger over the last 6 months. Currently our plan would be to carry out Dakin's solution dressing changes BID for the next week to 2 and clean this up. This may get us to the point where some Isolated debridement may be able to take down any residual necrotic tissue. If the patient continues to do well suggest trial of a wound VAC. All of this must also occur concurrent with increased nutritional support good protein intake close diabetic control and pressure offloading positioning. If this is getting worse requiring sharp removal of the necrotic tissue surgical consultation is recommended Status: Acute (4) Anemia: Status: Acute (5) Pneumonia: Status: Acute (6) ESRD (end stage renal disease): Status: Acute (7) Altered mental status: Status: Acute (8) Hypotension: Status: Acute (9) Coagulopathy: Status: Acute Assessment and Plan: Hospital day 2: This is a 60-year-old female with extensive past medical history that includes ESRD on dialysis MWF, hypertension, diabetes, orthostatic hypotension, NSTEMI, AFib not on anticoagulation because of history of GI bleed, GERD, history of enterocolitis due to C diff, history of pancreatitis, chronic hep C, history of uterine cancer status post hysterectomy 2012, active rectal cancer, opioid and cocaine dependence, anemia of chronic disease, PVD, status post left BKA, and dry gangrene of right toe, large sacral decubitus, and cachexia presented to the hospital on 12/12 after experiencing hypotension post dialysis. On initial arrival to the ER patient was found to be hypotensive and hypothermic. Patient was started on pressors and transferred to the ICU with possible multifactorial sepsis. According to the chart review, patient's poor prognosis and current medical conditions were discussed extensively with pt's son Dariel as well as her sister over the phone and at that time, pt's code status was changed to STAIN APPLICATOR. today son presented to the hospital to see his mother, with sister over the phone and her second son all decided that they want to make pt Full code as they feel pt would want full care. therefore code has been changes to full code with resumption of her medications. # Sepsis - Most likely multifactorial 2/2 pna, vs osteomyelitis - CT chest showed bilateral lower lobe infiltrates, she also has a significant coccygeal ulcer as well as other unstageable ulcers - Pt vitals within normal range at this time - Leukocytosis improving - Will start her on vanc- renally dosed, as well as zosyn - Fluids on hold at this time - LA normal - WIll follow cultures # Sacral pressure ulcer - will treat as osteomyelitis - will obtain CRP , ESR - Consult ID - VANC and Zosyn - cultures - Wound care consulted # Pneumonia - Possibly aspiratioin - Abx as above - will do swallow eval once pt is more awake # Coagulopathy - INR 2.0, not on any aticoagulation - has hx of Hep C - possibly 2/2 liver ds - Will follow PT/INR # normocytic anemia - most likely in the setting of chronic ds - has hx of GI bleed, no evidence of acute gi bleed at this time - Will order occult stool - threshold Hgb <7 - H&H daily # ESRD on dialysis - Nephrology consulted - continue dilaysis per recs # Rectal cancer - unclear if she follows op with heme/onc - will refer to op follow up as pt has more immediate issue DVT ppx: SCDs Code status: Full code
[2020-12-13 15:16] VITALS: BP 100/51; PULSE 60; RESP 16; TEMP 36
[2020-12-13 16:20] LABS: C Reactive Protein 18.05 mg/dL (< or = 0.50)
[2020-12-13] MEDS: HYDROmorphone HCl 2 MG TABLET 1 MG PO ×2 (16:25→20:19)
--- NOTE | 2020-12-13 17:29 | P.CONGS_ITS ---
History of Present Illness Consult details Consult date: 12/13/20 Reason for consult: wound care Requesting physician: Guillermo Torres Narrative: This is a 60-year-old female with a complicated past medical history including end-stage renal disease, hyperlipidemia, hypertension, diabetes, insomnia, orthostatic hypotension, GERD, acute pancreatitis, chronic viral hepatitis-C, malignant neoplasm of the rectum, opioid dependence, anemia of chr onic disease, atrial fibrillation, chronic debilitation, whom we are asked to see for evaluation of multiple decubitus ulcers. She also has a recent (2019) history of mesenteric ischemia requiring small bowel resection and creation of ileostomy and mucus fistula. She was transported to the emergency department from dialysis 2 days ago because of hypotension and on evaluation was felt to be in septic shock. She has required hospitalization on a number of occasions over the past year. She is n ot able to provide any information at this time and information is taken from her record. She apparently has refused treatment and hemodialysis in the recent past, but family members have wish to continue aggressive care. A decision was made to pursue comfort measures earlier today, but after review with family members, this decision was reversed. The record indicates that she was documented to have a 10 x 10 cm sacral decubitus ulcer while admitted to [facility] in October. The ulcer was debrided during admission to [facility] on November 22. At that time, ulcer measurements were 22 x 15 cm. She also has documented unstageable ulcers of the right hip and right heel. At the time of my visit, she was poorly responsive. She complained of pain with movement and dressing change but did not respond to questions. Review of Systems Review of Systems: Yes Unobtainable due to mental condition Neurologic: Reports confusion Psychiatric: Psychiatric: Reports confusion COUNT INCLUDES [facility] Past Medical History Medical History (Updated 12/14/20 @ 10:06 by Hieu Iqbal MD) Dialysis patient History of left below knee amputation Mesenteric ischemia Oxygen dependent Poor historian Renal failure Surgical History Surgical History (Updated 12/14/20 @ 06:25 by Lilly Cook MD) History of resection of small bowel Surgical history unknown Social History Social History Household Members: Other Housing: Shelter Do you presently have visiting nurse or other home services: No Unable to assess alcohol history related to: Unable to respond Alcohol intake: unknown Smoking Status: Unknown if ever smoked Smoked in Last 30 Days: No Patient Interested in Nicotine Replacement: No Patient Given Instructions on How to Stop Smoking: No Second Hand Smoke Exposure: No Use of substances other than those prescribed or required for medical reasons: Unable to respond Currently Displaying Signs/Symptoms of Drug Intoxication Withdrawal: No Spiritual Healthcare Practices: unable to respond Jain Healthcare Practices: unable to respond Cultural Healthcare Practices: unable to respond Advance Directives: No Advance Directives Information Provided: No Recently lost weight without trying: Unsure service: No Current occupational status: unemployed and disabled Meds Allergies Allergy/AdvReac Type Severity Reaction Status Date / Time Penicillins [PENICILLINS] Allergy Unknown Rash Verified 09/21/20 11:45 Active Medications: Current Medications Generic Name Dose Route Start Last Admin Trade Name Freq PRN Reason Stop Dose Admin Hydromorphone HCl 1 mg 12/13/20 15:18 12/13/20 16:25 Hydromorphone Hcl 2 Mg Tablet PO 1 mg Q4H PRN Administration Pain, Moderate (Pain Scale 4-6 Piperacillin Sod/Tazobactam 50 mls @ 100 mls/hr 12/13/20 12:45 12/13/20 14:39 Sod 2.25 gm/ Sodium Chloride IV Infused Q6H [facility] Infusion Pharmacy Consult 1 each 12/13/20 12:16 Consult Rx Vancomycin Dosing MISCELLANE DAILY PRN Consult order Home Medications Medication Instructions Recorded Confirmed Last Taken Type Nephro-Huan 1 tab PO DAILY 09/20/20 12/12/20 Unknown History acetaminophen 650 mg PO Q4H PRN 09/20/20 12/12/20 Unknown History atorvastatin 20 mg PO BEDTIME 09/20/20 12/12/20 Unknown History midodrine 5 mg PO TID 09/20/20 12/12/20 Unknown History mirtazapine [Remeron] 7.5 mg PO BEDTIME 09/20/20 12/12/20 Unknown History sevelamer carbonate 800 mg PO TID 09/20/20 12/12/20 Unknown History cholecalciferol (vitamin D3) 125 mcg PO DAILY 12/12/20 12/12/20 Unknown History fluoxetine 1 tab PO DAILY 12/12/20 12/12/20 Unknown History lidocaine 1 appl TOPICAL DAILY 12/12/20 12/12/20 Unknown History meropenem 1 g IV DAILY 12/12/20 12/12/20 Unknown History oxycodone 5 mg PO Q4H PRN 12/12/20 12/12/20 Unknown History oxycodone 10 mg PO Q4H PRN 12/12/20 12/12/20 Unknown History pantoprazole 20 mg PO DAILY 12/12/20 12/12/20 Unknown History quetiapine 1 tab PO BEDTIME 12/12/20 12/12/20 Unknown History Physical Exam Vital Signs: Vital Signs: Last Vital Signs Temp 96.8 F 12/13/20 15:16 Pulse 60 12/13/20 15:16 Resp 16 12/13/20 15:16 BP 100/51 L 12/13/20 15:16 Pulse Ox 94 12/13/20 12:25 Oxygen Flow Rate 2 12/12/20 04:34 Body Mass Index 21.3 Const: General: confusion Nutritional Appearance: cachectic Orientation/consciousness: confusion Skin: Other: Stage IV decubitus ulcer of sacral area with patchy areas of slough centrally over bone, eschar along skin margin on left and some necrotic tissue overlying exposed muscle left gluteal area Neuro: General: confusion Extrem: Other: Unstageable ulcer right hip with eschar present and no surrounding erythema, eschar over right calcaneus, pedal pulses not palpable, left BKA Results Labs Result diagrams: 12/13/20 13:14 12/13/20 13:14 Labs: Abnormal lab results 12/13/20 12/13/20 12/13/20 Range/Units 13:14 13:14 13:14 WBC 12.4 H (4.8-10.8) X10*3/uL RBC 2.59 L (4.20-5.50) X10*6/uL Hgb 7.8 L (12.0-16.0) g/dl Hct 25.1 L (37-47) % RDW 21.4 H (11.0-16.0) % Plt Count 122 L (160-400) X10*3/uL Immature Gran % (Auto) 0.7 H (0.0-0.4) % Neut % (Auto) 77.0 H (45-73) % Lymph % (Auto) 17.9 L (20-40) % Abs Immat Gran (auto) 0.09 H (0.00-0.03) X10*3/uL Absolute Neuts (auto) 9.5 H (2.0-8.3) X10*3/uL Absolute Nucleated RBC 0.020 H (0.0-0.012) X10*3/uL ESR 116 H (0-20) MM/HR Potassium (3.3-5.1) mmol/L Carbon Dioxide (22-29) mmol/L BUN (9-16) mg/dL Creatinine (0.5-1.4) mg/dL Random Glucose (60-115) mg/dL Calcium (8.4-10.2) mg/dL Total Bilirubin (0.0-1.0) mg/dL Alkaline Phosphatase (39-117) U/L C-Reactive Protein 18.05 H (< or = 0.50) mg/dL Albumin (3.5-5.0) g/dL 12/13/20 Range/Units 13:14 WBC (4.8-10.8) X10*3/uL RBC (4.20-5.50) X10*6/uL Hgb (12.0-16.0) g/dl Hct (37-47) % RDW (11.0-16.0) % Plt Count (160-400) X10*3/uL Immature Gran % (Auto) (0.0-0.4) % Neut % (Auto) (45-73) % Lymph % (Auto) (20-40) % Abs Immat Gran (auto) (0.00-0.03) X10*3/uL Absolute Neuts (auto) (2.0-8.3) X10*3/uL Absolute Nucleated RBC (0.0-0.012) X10*3/uL ESR (0-20) MM/HR Potassium 5.2 H (3.3-5.1) mmol/L Carbon Dioxide 20 L (22-29) mmol/L BUN 52 H (9-16) mg/dL Creatinine 6.66 H* (0.5-1.4) mg/dL Random Glucose 176 H (60-115) mg/dL Calcium 7.6 L (8.4-10.2) mg/dL Total Bilirubin 2.3 H (0.0-1.0) mg/dL Alkaline Phosphatase 595 H (39-117) U/L C-Reactive Protein (< or = 0.50) mg/dL Albumin 2.8 L D (3.5-5.0) g/dL Short CBC 12/13/20 Range/Units 13:14 WBC 12.4 H (4.8-10.8) X10*3/uL Hgb 7.8 L (12.0-16.0) g/dl Hct 25.1 L (37-47) % Plt Count 122 L (160-400) X10*3/uL BMP 12/13/20 13:14 Sodium 141 Potassium 5.2 H Chloride 106 Carbon Dioxide 20 L BUN 52 H Creatinine 6.66 H* Calcium 7.6 L Liver Function 12/13/20 Range/Units 13:14 Total Bilirubin 2.3 H (0.0-1.0) mg/dL AST 26 (5-31) U/L ALT < 6 (0-31) U/L Alkaline Phosphatase 595 H (39-117) U/L Albumin 2.8 L D (3.5-5.0) g/dL All other labs normal. Assessment and Plan (1) Dry gangrene: Status: Acute Continue dry dressings, pressure relief to right foot, debridement not needed at this time. (2) Pressure injury, unstageable, with eschar: Status: Acute Unstageable ulcer right hip without evidence of infection. Debridement may be needed depending upon her progress. 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 Prognosis appears poor overall due to number and severity of medical conditions. (3) Pressure injury of sacral region, stage 4: Status: Acute Large stage 4 ulcer, osteomyelitis, malnutrition. Continue b.i.d. dressing changes with 0.25% Dakin solution. General surgery will follow and reassess need for debridement. (4) Protein-calorie malnutrition, severe: Status: Acute Follow intake. Albumin level likely artificially elevated due to recent administration of IV albumin.
--- NOTE | 2020-12-13 17:30 | PC.NURSE ---
Late entry: This RN entered room for pain and comfort assessment as well as repostioning. ECONOMICS INSTRUCTOR assisted with repositioning pt off of sacral area with pillows. Dressing to sacrum CDI. Right hip with unstageable dry wound. left hip with foam dressing CDI. Right foot gangrenous with DSD to heel, CDI. heel boot on. 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 Upon repositioning, Pt began to moan with pain. When asked if having pain, stated pain all over Dilaudid 1mg IV given with good effect. Pt slept for 2 hours before repositioning again. Pt repositioned to opposite side with assist of this RN and ECONOMICS INSTRUCTOR. Pt fell back asleep without any facial grimacing, moaning or c/o pain. Will monitor
--- NOTE | 2020-12-13 17:38 | PC.NURSE ---
Late [id number]: Pt dressing to sacrum changed by this RN. Unstageable area with odor. Pt repositioned onto opposite side with assist of THIRD MATE. Pt medicated with 1mg Iv dilaudid with no effect. Son and daughter in law into room. Pt yelling out in yoruba, anxious. Dr Torres notified. Ativan Iv ordered and 1mg IV given with good effect. Son with questions regarding pt status and wounds. Dr Torres notified and in to speak with family. 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 Pt remains without moaning after medications given. Awaiting special air mattress bed to be delivered to pt room. 1400: Critical lab creatinine 6.[address] Kuo in to see pt. Pt to have dialysis tomorrow. 1600: Dr ling in to evaluate wound on pt. Assisted MD to turn pt. Dressing to sacrum and right heel changed by MD. Pt repositioned onto side with pillows. C/o pain, medicated with po dilaudid with good effect. Pt resting without moaning. Stool obtained from ostomy to RLQ. draining liquid brown. telesitter in room for pt safety with bed alarm intact.
[2020-12-13 17:51] LABS: OBS1 POSITIVE (NEGATIVE)
[2020-12-13 17:52] LABS: OBS Int Ctl Valid YES
[2020-12-13 18:24] LABS: Vancomycin Random 12.8 mcg/mL (15-20)
--- NOTE | 2020-12-13 18:26 | PC.NURSE ---
Pt ploaced in new bed with air mattress. Pt does not verbalize pain at this time. no moaning. Eyes closed, resting
[2020-12-13] MEDS: vancomycin HCL 500 MG in 0.9 % Sodium Chloride 100 ML 110 MG IV (20:19)
[2020-12-13] MEDS: hydrOXYzine HCL 25 MG TABLET PO (22:04)
[2020-12-13 23:49] VITALS: BP 94/51; PULSE 58; RESP 15; TEMP 36.7; O2SAT 98
[2020-12-14] MEDS: Piperacillin Sodium/Tazobactam 2.25 GM in 0.9 % Sodium Chloride 50 ML IV ×4 (00:34→18:33)
[2020-12-14] MEDS: HYDROmorphone HCl 2 MG TABLET 1 MG PO ×4 (00:34→21:23)
[2020-12-14 08:06] LABS: INTERNATIONAL NORM RATIO 2.2 (0.9-1.1); Prothrombin Time 26.1 SEC (10.8-13.0)
--- NOTE | 2020-12-14 10:04 | W.PM.DNNEP ---
Subjective Subjective This patient was seen during dialysis. Physical Exam Vital Signs: Vital Signs: Last Vital Signs Temp 98.1 F 12/13/20 23:49 Pulse 58 12/13/20 23:49 Resp 15 12/13/20 23:49 BP 94/51 L 12/13/20 23:49 Pulse Ox 98 12/13/20 23:49 Oxygen Flow Rate 2 12/12/20 04:34 Body Mass Index 21.3 Const: General: ill appearing Cardio: Palpation: heave and no palpable S3 Heart sounds: no rubs GI: Auscultation: normal bowel sounds Neuro: Motor exam (neuro): No Asterixis during motor activity present Assessment & Plan Assessment and plan (1) ESRD (end stage renal disease): Problem details: HD as indicated Supportive care Prognosis guarded Status: Acute Time Spent With Patient Time: Total time spent is greater than 50% in coordination of care (as documented) at patient's floor/unit and/or counseling patient:
[2020-12-14 11:03] VITALS: BP 121/71; PULSE 66; RESP 16; TEMP 36.1; O2SAT 96
--- NOTE | 2020-12-14 11:49 | P.PNIM_ITS ---
Subjective Subjective Date of Service: 12/14/20 Interval History: Patient seen and examined during dialysis. Has no specific complaint, no complaint of pain Review of Systems Gen: no fever Resp: no sob, no cough CV: no chest, no RAMSEY, no leg edema GI: No n/v, no abd pain Neuro: No confusion Physical Exam Vital Signs: Vital Signs: Last Vital Signs Temp 97 F 12/14/20 11:03 Pulse 66 12/14/20 11:03 Resp 16 12/14/20 11:03 BP 121/71 12/14/20 11:03 Pulse Ox 96 12/14/20 11:03 Oxygen Flow Rate 2 12/12/20 04:34 Body Mass Index 21.3 Const: Other: General: No distress Resp: CTA bilateral CVS: S1,S2,RRR GI: +BS, NT, no distention Skin: Stage IV decubitus ulcer of sacral area--see additional comments from surgery Neuro: motor grossly intact Psych: appropriate affect Objective Data Current Medications Generic Name Dose Route Start Last Admin Trade Name Osmarq PRN Reason Stop Dose Admin Hydromorphone HCl 1 mg 12/13/20 15:18 12/14/20 05:29 Hydromorphone Hcl 2 Mg Tablet PO 1 mg Q4H PRN Administration Pain, Moderate (Pain Scale 4-6 Hydroxyzine HCl 25 mg 12/13/20 21:53 12/13/20 22:04 Hydroxyzine Hcl 25 Mg Tablet PO 25 mg Q6H PRN Administration Anxiety Piperacillin Sod/Tazobactam 50 mls @ 100 mls/hr 12/13/20 12:45 12/14/20 06:25 Sod 2.25 gm/ Sodium Chloride IV Infused Q6H [facility] Infusion Pharmacy Consult 1 each 12/13/20 12:16 Consult Rx Vancomycin Dosing MISCELLANE DAILY PRN Consult order Labs CBC & Chem 7: 12/13/20 13:14 12/13/20 13:14 Microbiology Microbiology Results: Microbiology 12/11/20 15:43 Blood - Venous Blood Culture - Preliminary No growth after 48 hours. 12/11/20 15:00 Blood - Venous Blood Culture - Preliminary No growth after 48 hours. Assessment and Plan (1) Dry gangrene: Status: Acute (2) Pressure injury, unstageable, with eschar: Status: Acute (3) Pressure injury of sacral region, stage 4: Status: Acute (4) Anemia: Status: Acute (5) Pneumonia: Status: Acute (6) ESRD (end stage renal disease): Problem details: HD as indicated Supportive care Prognosis guarded Status: Acute (7) Altered mental status: Status: Acute (8) Hypotension: Status: Acute (9) Coagulopathy: Status: Acute Assessment and Plan: Hospital day 2: This is a 60-year-old female with extensive past medical history that includes ESRD on dialysis MWF, hypertension, diabetes, orthostatic hypotension, NSTEMI, AFib not on anticoagulation because of history of GI bleed, GERD, history of enterocolitis due to C diff, history of pancreatitis, chronic hep C, history of uterine cancer status post hysterectomy 2012, active rectal cancer, opioid and cocaine dependence, anemia of chronic disease, PVD, status post left BKA, and dry gangrene of right toe, large sacral decubitus, and cachexia presented to the hospital on 12/12 after experiencing hypotension post dialysis. On initial arrival to the ER patient was found to be hypotensive and hypothermic. Patient was started on pressors and transferred to the ICU with possible multifactorial sepsis. 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 today son presented to the hospital to see his mother, with sister over the phone and her second son all decided that they want to make pt Full code as they feel pt would want full care. therefore code has been changes to full code with resumption of her medications. # Sepsis - Most likely multifactorial 2/2 pna, vs osteomyelitis - CT chest showed bilateral lower lobe infiltrates, she also has a significant coccygeal ulcer as well as other unstageable ulcers - Pt vitals within normal range at this time - Leukocytosis improving - continue Vanco and Zosyn -waiting on cultures # Sacral pressure ulcer--stage 4 decub ulcer present on admission - will treat as osteomyelitis - Consult ID - VANC and Zosyn - cultures - Wound care consulted # Pneumonia - Possibly aspiratioin - Abx as above - will do swallow eval once pt is more awake # Coagulopathy - INR 2.0, not on any aticoagulation - has hx of Hep C - possibly 2/2 liver ds - Will follow PT/INR # normocytic anemia - most likely in the setting of chronic ds - has hx of GI bleed, no evidence of acute gi bleed at this time - Will order occult stool - threshold Hgb <7 - H&H daily # ESRD on dialysis - Nephrology consulted - continue dilaysis per recs # Rectal cancer - unclear if she follows op with heme/onc - will refer to op follow up as pt has more immediate issue overall very poor prognosis and comfort care/hospice not unreasonable option DVT ppx: SCDs Code status: Full code
--- NOTE | 2020-12-14 13:54 | P.CNID_ITS ---
History of Present Illness Data of Consult Service Date: 12/14/20 Requesting physician: Marquez Johnson Primary Care Provider: Unknown Physician HPI Reason for consult: sacral ulcer She presents to hospital with hypotension at dialysis She was admitted and noticed to have large sacral ulcer (can probe to bone) as well as right hip pressure ulcers. She came to ER 4/3 and had sacral ulcer at that time and family took her home AMA She still gets dialysis and has been full code. Review of Systems Review of Systems: pain and yells when moved,seen with CHANTALE Sandoval [facility] Past Medical History Medical History (Updated 12/14/20 @ 14:02 by Dorys Iqbal MD) Dialysis patient History of left below knee amputation Mesenteric ischemia Osteomyelitis of sacrum Oxygen dependent Poor historian Renal failure Functional capacity: bed bound Family History Family history: reviewed and not pertinent Surgical History Surgical History History of resection of small bowel Surgical history unknown Social History Social History Household Members: Other Housing: Long-Term Do you presently have visiting nurse or other home services: No Unable to assess alcohol history related to: Unable to respond Alcohol intake: unknown Smoking Status: Unknown if ever smoked Smoked in Last 30 Days: No Patient Interested in Nicotine Replacement: No Patient Given Instructions on How to Stop Smoking: No Second Hand Smoke Exposure: No Use of substances other than those prescribed or required for medical reasons: Unable to respond Currently Displaying Signs/Symptoms of Drug Intoxication Withdrawal: No Spiritual Healthcare Practices: unable to respond Denominational Healthcare Practices: unable to respond Cultural Healthcare Practices: unable to respond Advance Directives: No Advance Directives Information Provided: No Recently lost weight without trying: Unsure service: No Current occupational status: unemployed and disabled Meds Allergies Allergy/AdvReac Type Severity Reaction Status Date / Time Penicillins [PENICILLINS] Allergy Unknown Rash Verified 09/21/20 11:45 Active Medications: Current Medications Generic Name Dose Route Start Last Admin Trade Name Freq PRN Reason Stop Dose Admin Hydromorphone HCl 1 mg 12/13/20 15:18 12/14/20 05:29 Hydromorphone Hcl 2 Mg Tablet PO 1 mg Q4H PRN Administration Pain, Moderate (Pain Scale 4-6 Hydroxyzine HCl 25 mg 12/13/20 21:53 12/13/20 22:04 Hydroxyzine Hcl 25 Mg Tablet PO 25 mg Q6H PRN Administration Anxiety Piperacillin Sod/Tazobactam 50 mls @ 100 mls/hr 12/13/20 12:45 12/14/20 13:40 Sod 2.25 gm/ Sodium Chloride IV 100 mls/hr Q6H [facility] Administration Pharmacy Consult 1 each 12/13/20 12:16 Consult Rx Vancomycin Dosing MISCELLANE DAILY PRN Consult order Home Medications Medication Instructions Recorded Confirmed Last Taken Type Nephro-Huan 1 tab PO DAILY 09/20/20 12/12/20 Unknown History acetaminophen 650 mg PO Q4H PRN 09/20/20 12/12/20 Unknown History atorvastatin 20 mg PO BEDTIME 09/20/20 12/12/20 Unknown History midodrine 5 mg PO TID 09/20/20 12/12/20 Unknown History mirtazapine [Remeron] 7.5 mg PO BEDTIME 09/20/20 12/12/20 Unknown History sevelamer carbonate 800 mg PO TID 09/20/20 12/12/20 Unknown History cholecalciferol (vitamin D3) 125 mcg PO DAILY 12/12/20 12/12/20 Unknown History fluoxetine 1 tab PO DAILY 12/12/20 12/12/20 Unknown History lidocaine 1 appl TOPICAL DAILY 12/12/20 12/12/20 Unknown History meropenem 1 g IV DAILY 12/12/20 12/12/20 Unknown History oxycodone 5 mg PO Q4H PRN 12/12/20 12/12/20 Unknown History oxycodone 10 mg PO Q4H PRN 12/12/20 12/12/20 Unknown History pantoprazole 20 mg PO DAILY 12/12/20 12/12/20 Unknown History quetiapine 1 tab PO BEDTIME 12/12/20 12/12/20 Unknown History Physical Exam Vital Signs: Vital Signs: Last Vital Signs Temp 97 F 12/14/20 11:03 Pulse 66 12/14/20 11:03 Resp 16 12/14/20 11:03 BP 121/71 12/14/20 11:03 Pulse Ox 96 12/14/20 11:03 Oxygen Flow Rate 2 12/12/20 04:34 Body Mass Index 21.3 Const: General: anxious and ill appearing HENMT: Head: Yes normal to inspection Mouth: Normal oral and palatal mucosa present Eyes: General: appearance normal, both eyes and all related structures Resp: Effort & Inspection: normal respiratory effort Cardio: Rate: regular rate Rhythm: regular rhythm GI: Palpation (GI): Soft to palpation and nontender Back/Spine/Pelvis: Other: large sacral wound probes to bone,8x10 left BKA finger dry gangrene pressure ulcer right hip Skin: General skin exam: no rashes or lesions noted Extrem: Other: left BKA Results Labs CBC & Chem 7: 12/13/20 13:14 12/13/20 13:14 Labs: BMP 12/13/20 13:14 Sodium 141 Potassium 5.2 H Chloride 106 Carbon Dioxide 20 L BUN 52 H Creatinine 6.66 H* Calcium 7.6 L Liver Function 12/13/20 Range/Units 13:14 Total Bilirubin 2.3 H (0.0-1.0) mg/dL AST 26 (5-31) U/L ALT < 6 (0-31) U/L Alkaline Phosphatase 595 H (39-117) U/L Albumin 2.8 L D (3.5-5.0) g/dL Microbiology Microbiology Results: Microbiology 12/11/20 15:43 Blood - Venous Blood Culture - Preliminary No growth after 48 hours. 12/11/20 15:00 Blood - Venous Blood Culture - Preliminary No growth after 48 hours. Assessment and Plan (1) Dry gangrene: Status: Acute (2) Osteomyelitis of sacrum: Problem details: Area probable to bone Possible gram negative ,staph and anerobe PCN rash Pressure ulcers Status: Acute Would continue Zosyn for now ,tolerating and await blood cultures Ertapenem 500 mg after each dialysis if tolerates possible six weeks Vancomycin after dialysis for now Social Service consult,concern over home bed with pressure ulcers,AMA visits despite needing care I dont believe she needs further imaging Follow ESR weekly (3) ESRD (end stage renal disease): Problem details: On HD TIW No s/s of uremia DC planning Status: Acute
[2020-12-14 14:02] LABS: Vancomycin Random 13.4 mcg/mL (15-20)
[2020-12-14 15:25] VITALS: BP 149/74; PULSE 65; RESP 20; TEMP 36
[2020-12-14] MEDS: vancomycin HCL 500 MG in 0.9 % Sodium Chloride 100 ML 110 MG IV (16:04)
[2020-12-14] MEDS: hydrOXYzine HCL 25 MG TABLET PO ×2 (16:12→21:23)
[2020-12-14 19:46] VITALS: BP 131/68; PULSE 62; RESP 19; TEMP 36
[2020-12-14 23:55] VITALS: BP 97/53; PULSE 62; RESP 12; TEMP 36.5; O2SAT 98
[2020-12-15] MEDS: Piperacillin Sodium/Tazobactam 2.25 GM in 0.9 % Sodium Chloride 50 ML IV ×5 (01:00→23:04)
[2020-12-15] MEDS: HYDROmorphone HCl 2 MG TABLET 1 MG PO ×2 (03:33→09:04)
[2020-12-15 03:40] VITALS: BP 103/55; PULSE 60; RESP 14; TEMP 36.6; O2SAT 99
[2020-12-15 08:00] VITALS: BP 110/56; PULSE 62; RESP 16; TEMP 36.3; O2SAT 98
[2020-12-15] MEDS: hydrOXYzine HCL 25 MG TABLET PO (09:05)
--- NOTE | 2020-12-15 09:14 | PM.PNGS ---
Subjective Subjective Date of Service: 12/15/20 Interval history: More alert, c/o pain worse with dressing change Physical Exam Vital Signs: Vital Signs: Last Vital Signs Temp 97.8 F 12/15/20 03:40 Pulse 60 12/15/20 03:40 Resp 14 12/15/20 03:40 BP 103/55 L 12/15/20 03:40 Pulse Ox 99 12/15/20 03:40 Oxygen Flow Rate 2 12/12/20 04:34 Body Mass Index 21.3 Const: General: alert Nutritional Appearance: cachectic Skin: Other: sacral wound is improved, with decreased slough and superficial nonviable tissue, unstageable right hip ulcer with dry eschar, right heel eschar Progress Note: A&P Assessment and plan (1) Osteomyelitis of sacrum: Status: Acute (2) Protein-calorie malnutrition, severe: Status: Acute (3) Pressure injury of sacral region, stage 4: Status: Acute (4) Dry gangrene: Status: Acute Assessment and Plan: Sacral wound is improving. Cont. dressing changes with Dakins for now. Dry gangrene right heel, foot - stable Mental status and PO intake improved, has severe malnutrition. Cont. to monitor Overall prognosis is poor. She has an unstageable ulcer on the right hip area covered with eschar. There is no surrounding cellulitic change. Fall Risk Details Current Medications: Current Medications Generic Name Dose Route Start Last Admin Trade Name Freq PRN Reason Stop Dose Admin Hydromorphone HCl 1 mg 12/13/20 15:18 12/15/20 09:04 Hydromorphone Hcl 2 Mg Tablet PO 1 mg Q4H PRN Administration Pain, Moderate (Pain Scale 4-6 Hydroxyzine HCl 25 mg 12/13/20 21:53 12/15/20 09:05 Hydroxyzine Hcl 25 Mg Tablet PO 25 mg Q6H PRN Administration Anxiety Piperacillin Sod/Tazobactam 50 mls @ 100 mls/hr 12/13/20 12:45 12/15/20 06:25 Sod 2.25 gm/ Sodium Chloride IV Infused Q6H JENIFER Infusion Pharmacy Consult 1 each 12/13/20 12:16 Consult Rx Vancomycin Dosing MISCELLANE DAILY PRN Consult order Time Spent With Patient Time: Total time spent is greater than 50% in coordination of care (as documented) at patient's floor/unit and/or counseling patient: Time with patient: 15 - 24 minutes
[2020-12-15] MEDS: LORazepam 2 MG/ML VIAL 1 MG IVPUSH (11:37)
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
[2020-12-15 15:38] VITALS: BP 101/59; PULSE 79; RESP 18; TEMP 36.4; O2SAT 96
--- NOTE | 2020-12-15 18:45 | PM.PNNEP ---
Subjective Subjective Interval history: Events noted Physical Exam Vital Signs: Vital Signs: Last Vital Signs Temp 97.5 F 12/15/20 15:38 Pulse 79 12/15/20 15:38 Resp 18 12/15/20 15:38 BP 101/59 L 12/15/20 15:38 Pulse Ox 96 12/15/20 15:38 Oxygen Flow Rate 2 12/12/20 04:34 Body Mass Index 21.3 Const: General: ill appearing Cardio: Palpation: heave and no palpable S3 Heart sounds: no rubs GI: Auscultation: normal bowel sounds Neuro: Motor exam (neuro): No Asterixis during motor activity present Objective Data Labs CBC & Chem 7: 12/13/20 13:14 12/16/20 13:27 Microbiology Microbiology Results: Microbiology 12/11/20 15:43 Blood - Venous Blood Culture - Preliminary No growth after 48 hours. 12/11/20 15:00 Blood - Venous Blood Culture - Preliminary No growth after 48 hours. Assessment & Plan Assessment and plan (1) ESRD (end stage renal disease): Problem details: HD as indicated Supportive care Prognosis guarded Consider hospice Status: Acute Time Spent With Patient Time: Total time spent is greater than 50% in coordination of care (as documented) at patient's floor/unit and/or counseling patient:
[2020-12-15 19:16] VITALS: BP 108/59; PULSE 65; RESP 20; TEMP 36.3; O2SAT 100
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
[2020-12-15 23:40] VITALS: BP 129/67; PULSE 64; RESP 18; TEMP 36.7; O2SAT 94
[2020-12-16] VITALS (7 sets, daily range): BP systolic 92–128; BP diastolic 52–78; PULSE 60–74; RESP 15–20; TEMP 36.1–37.1; O2SAT 86–100
[2020-12-16] MEDS: HYDROmorphone HCl 2 MG TABLET 1 MG PO ×4 (02:38→21:10)
[2020-12-16] MEDS: Piperacillin Sodium/Tazobactam 2.25 GM in 0.9 % Sodium Chloride 50 ML IV ×3 (06:01→18:39)
--- NOTE | 2020-12-16 08:18 | PM.PNGS ---
Subjective Subjective Date of Service: 12/16/20 Interval history: Patient not at the communicative at this time although awake Seems to complain of pain when moved Physical Exam Vital Signs: Vital Signs: Last Vital Signs Temp 98.8 F 12/16/20 04:00 Pulse 61 12/16/20 04:00 Resp 16 12/16/20 04:00 BP 109/53 L 12/16/20 04:00 Pulse Ox 100 12/16/20 04:00 Oxygen Flow Rate 2 12/12/20 04:34 Body Mass Index 21.3 Const: Other: Appears very frail Resp: Effort & Inspection: normal respiratory effort GI: Palpation (GI): Soft to palpation and nontender Back/Spine/Pelvis: Other: Large, wide sacral ulcer extending to the buttocks, with rim of dry eschar, open wound in the middle, likely stage 3-4 no pus; right hip ulcer with dry eschar no cellulitic changes Progress Note: A&P Assessment and plan (1) Pressure injury of sacral region, stage 4: Status: Acute Assessment and Plan: She has pressure ulcer on the sacrum as well as on the right hip Both of these have dry eschar Patient with very poor overall baseline level of function 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, family apparently has changed this Needs nutritional support at this time Will discuss with family regarding option of proceeding with surgical debridement which will require anesthesia Will need medical condition to be optimized prior to consideration of surgical debridement Fall Risk Details Current Medications: Current Medications Generic Name Dose Route Start Last Admin Trade Name Freq PRN Reason Stop Dose Admin Hydromorphone HCl 1 mg 12/15/20 12:15 12/16/20 02:38 Hydromorphone Hcl 2 Mg Tablet PO 1 mg Q3H PRN Administration Pain, Moderate (Pain Scale 4-6 Hydroxyzine HCl 25 mg 12/13/20 21:53 12/15/20 09:05 Hydroxyzine Hcl 25 Mg Tablet PO 25 mg Q6H PRN Administration Anxiety Piperacillin Sod/Tazobactam 50 mls @ 100 mls/hr 12/13/20 12:45 12/16/20 06:44 Sod 2.25 gm/ Sodium Chloride IV Infused Q6H JENIFER Infusion Lorazepam 1 mg 12/15/20 11:17 12/15/20 11:37 Lorazepam 2 Mg/Ml Vial IVPUSH 1 mg Q6H PRN Administration Anxiety Pharmacy Consult 1 each 12/13/20 12:16 Consult Rx Vancomycin Dosing MISCELLANE DAILY PRN Consult order Time Spent With Patient Time: Total time spent is greater than 50% in coordination of care (as documented) at patient's floor/unit and/or counseling patient: Time with patient: 15 - 24 minutes
[2020-12-16] MEDS: hydrOXYzine HCL 25 MG TABLET PO (10:00)
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
[2020-12-16] MEDS: LORazepam 2 MG/ML VIAL 1 MG IVPUSH ×2 (12:09→21:10)
--- NOTE | 2020-12-16 12:24 | PM.PNNEP ---
Subjective Subjective Date of Service: 12/16/20 Interval history: Patient seen and examined during dialysis. She has been agitated and confused and c/o pain, anxious has dilaudid for pain and ativan for anxiety Physical Exam Vital Signs: Vital Signs: Last Vital Signs Temp 97.7 F 12/16/20 08:00 Pulse 67 12/16/20 12:00 Resp 18 12/16/20 12:00 BP 102/67 12/16/20 12:00 Pulse Ox 100 12/16/20 08:00 Oxygen Flow Rate 2 12/12/20 04:34 Body Mass Index 21.3 Const: General: no acute distress and ill appearing HENMT: Head: Yes normocephalic and Yes atraumatic Neck: Neck: Yes supple Resp: Auscultation: diminished lung sounds Cardio: Palpation: heave and no palpable S3 Heart sounds: S1 normal heart sound present, S2 normal heart sound present and no rubs GI: Palpation (GI): Soft to palpation and nontender Auscultation: normal bowel sounds Neuro: Motor exam (neuro): No Asterixis during motor activity present Objective Data Labs CBC & Chem 7: 12/13/20 13:14 12/13/20 13:14 Microbiology Microbiology Results: Microbiology 12/11/20 15:43 Blood - Venous Blood Culture - Preliminary No growth after 48 hours. 12/11/20 15:00 Blood - Venous Blood Culture - Preliminary No growth after 48 hours. Assessment & Plan Assessment and plan (1) ESRD (end stage renal disease): Problem details: HD as indicated Supportive care Prognosis guarded Consider hospice Status: Acute Assessment and Plan: will plan HD agan given change in code status sodium polysytyrene as needed ABx follow culture ASAF per protoco will cont ot follwo with team Time Spent With Patient Time: Total time spent is greater than 50% in coordination of care (as documented) at patient's floor/unit and/or counseling patient:
[2020-12-16 14:14] LABS: Anion Gap 17 (12-20); Blood Urea Nitrogen 8 mg/dL (9-16); Calcium 7.8 mg/dL (8.4-10.2); Carbon Dioxide 17 mmol/L (22-29); Chloride 103 mmol/L (96-108); Creatinine Clr Calc Pharmacy 26.8; Estimated Glomerular Filt Rate 33; Glucose Random 93 mg/dL (60-115); Potassium 3.6 mmol/L (3.3-5.1); Sodium 133 mmol/L (135-145)
[2020-12-16 14:32] LABS: Vancomycin Random 13.7 mcg/mL (15-20)
--- NOTE | 2020-12-16 15:23 | MHC.CM.PN ---
per multidis rounds possible dc for pt tomorrow called and spoke with son hcp GARO [phone] we spoke about npt being medically ready for dc tomorrow he was at [facility] t/w explained that pt did not necessarily have to return to that [facility], he now would like pt placed in a different facility as he was not happy with the care search initiated
[2020-12-16] MEDS: vancomycin HCL 500 MG in 0.9 % Sodium Chloride 100 ML 110 MG IV (15:30)
[2020-12-17] MEDS: Piperacillin Sodium/Tazobactam 2.25 GM in 0.9 % Sodium Chloride 50 ML IV ×4 (00:11→18:06)
[2020-12-17 03:02] VITALS: BP 110/53; PULSE 66; RESP 18; TEMP 36.1; O2SAT 100
[2020-12-17 06:51] VITALS: BP 110/58; PULSE 68; RESP 20; TEMP 36.6; O2SAT 94
[2020-12-17] MEDS: HYDROmorphone HCl 2 MG TABLET 1 MG PO ×2 (09:40→23:58)
[2020-12-17] MEDS: hydrOXYzine HCL 25 MG TABLET PO (09:40)
[2020-12-17 12:00] VITALS: BP 142/74; PULSE 68; RESP 20; TEMP 36.7; O2SAT 93
--- NOTE | 2020-12-17 12:41 | MHC.CM.PN ---
pt accepted at [facility] ins auth
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
--- NOTE | 2020-12-17 13:01 | MHC.CM.PN ---
pt was accepted at [facility] and now they are unable to accept pt as they have no non covid beds im,formed liasion that pt will now need a picc for iv antbiotics [facility] will follow pt
--- NOTE | 2020-12-17 13:26 | P.PNGS_ITS ---
Subjective Subjective Date of Service: 12/17/20 Interval history: No new events reported No change and patient's overall status She is not very communicative She does say that she is ?not in pain? although grimaces when moved Physical Exam Vital Signs: Vital Signs: Last Vital Signs Temp 98.1 F 12/17/20 12:00 Pulse 68 12/17/20 12:00 Resp 20 12/17/20 12:00 BP 142/74 H 12/17/20 12:00 Pulse Ox 93 12/17/20 12:00 Oxygen Flow Rate 2 12/12/20 04:34 Body Mass Index 21.3 Laboratory Results - last 24 hr 12/16/20 12/16/20 13:27 13:27 Sodium 133 L Potassium 3.6 D Chloride 103 Carbon Dioxide 17 L Anion Gap 17 BUN 8 L D Creatinine 1.60 H Estim Creat Clear Calc 26.8 Estimated GFR 33 Random Glucose 93 D Calcium 7.8 L Random Vancomycin 13.7 L Const: Other: Not very communicative, appears extremely frail and almost lethargic Resp: Effort & Inspection: normal respiratory effort Cardio: Rate: regular rate GI: Palpation (GI): Soft to palpation and nontender Skin: Other: Large sacrococcygeal ulcer, some surrounding eschar, dry, no pus, no obvious necrotic or gangrenous tissue; Heel ulcer on the right as well with eschar, dry BKA on the left, stump looks healthy Progress Note: A&P Assessment and plan (1) Pressure injury of sacral region, stage 4: Status: Acute Assessment and Plan: Has large sacral decubitus ulcer and right heel ulcer with dry eschar Patient extremely frail At this time, best to continue current wound care Hopefully, eschars will slough off on their own In view of patient's overall, I am not optimistic about healing especially as the patient is bed-bound and does not move at all on her own Pain management Patient to be transferred to SNF tomorrow as per hospitalist service Fall Risk Details Current Medications: Current Medications Generic Name Dose Route Start Last Admin Trade Name Freq PRN Reason Stop Dose Admin Hydromorphone HCl 1 mg 12/15/20 12:15 12/17/20 09:40 Hydromorphone Hcl 2 Mg Tablet PO 1 mg Q3H PRN Administration Pain, Moderate (Pain Scale 4-6 Hydroxyzine HCl 25 mg 12/13/20 21:53 12/17/20 09:40 Hydroxyzine Hcl 25 Mg Tablet PO 25 mg Q6H PRN Administration Anxiety Piperacillin Sod/Tazobactam 50 mls @ 100 mls/hr 12/13/20 12:45 12/17/20 07:11 Sod 2.25 gm/ Sodium Chloride IV Infused Q6H JENIFER Infusion Lorazepam 1 mg 12/15/20 11:17 12/16/20 21:10 Lorazepam 2 Mg/Ml Vial IVPUSH 1 mg Q6H PRN Administration Anxiety Pharmacy Consult 1 each 12/13/20 12:16 Consult Rx Vancomycin Dosing MISCELLANE DAILY PRN Consult order Time Spent With Patient Time: Total time spent is greater than 50% in coordination of care (as do cumented) at patient's floor/unit and/or counseling patient: Time with patient: 15 - 24 minutes
[2020-12-17 15:14] VITALS: BP 102/60; PULSE 70; RESP 15; TEMP 36.9; O2SAT 94
[2020-12-17 19:33] VITALS: BP 80/40; PULSE 60; RESP 18; TEMP 36.2; O2SAT 100
[2020-12-17] MEDS: Lactated Ringers 500 ML 999 ML IV (20:13)
[2020-12-17 20:53] LABS: Lactic Acid 1.6 mmol/L (0.5-2.0)
[2020-12-17 23:32] VITALS: BP 105/55; PULSE 67; RESP 16; TEMP 36.7; O2SAT 94
[2020-12-18] MEDS: Piperacillin Sodium/Tazobactam 2.25 GM in 0.9 % Sodium Chloride 50 ML IV ×3 (00:02→13:27)
[2020-12-18 03:46] VITALS: BP 99/52; PULSE 62; RESP 15; TEMP 36.4; O2SAT 95
[2020-12-18 07:53] VITALS: BP 92/54; PULSE 64; RESP 19; TEMP 36.6; O2SAT 98
--- NOTE | 2020-12-18 09:17 | PM.PNNEP ---
Subjective Subjective Date of Service: 12/18/20 Interval history: Patient seen and examined. She seem more comfortable today Currently on HD Physical Exam Vital Signs: Vital Signs: Last Vital Signs Temp 97.8 F 12/18/20 07:53 Pulse 64 12/18/20 07:53 Resp 19 12/18/20 07:53 BP 92/54 L 12/18/20 07:53 Pulse Ox 98 12/18/20 07:53 Oxygen Flow Rate 2 12/12/20 04:34 Body Mass Index 21.3 Const: General: no acute distress and ill appearing HENMT: Head: Yes normocephalic and Yes atraumatic Neck: Neck: Yes supple Resp: Auscultation: diminished lung sounds Cardio: Palpation: heave and no palpable S3 Heart sounds: S1 normal heart sound present, S2 normal heart sound present and no rubs GI: Palpation (GI): Soft to palpation and nontender Auscultation: normal bowel sounds Neuro: Motor exam (neuro): No Asterixis during motor activity present Objective Data Labs CBC & Chem 7: 12/13/20 13:14 12/16/20 13:27 Labs: Laboratory Results - last 24 hr 12/17/20 20:22 Lactic Acid 1.6 Microbiology Microbiology Results: Microbiology 12/11/20 15:43 Blood - Venous Blood Culture - Final No growth after 5 days. 12/11/20 15:00 Blood - Venous Blood Culture - Final No growth after 5 days. Assessment & Plan Assessment and plan (1) ESRD (end stage renal disease): Problem details: HD as indicated Supportive care Prognosis guarded Consider hospice Status: Acute Assessment and Plan: 1. ESRD: cont HD mwf 2. Sacral osteo 3. Anemia 4. Low BP Overall severe disease burden and doubtful she will have any meaningful response to ongoing treatment but family wants full support to be continued REC: HD mwf; cont procrit, midrdine, ABx as noted; d/c planning Time Spent With Patient Time: Total time spent is greater than 50% in coordination of care (as documented) at patient's floor/unit and/or counseling patient:
[2020-12-18 11:14] VITALS: BP 106/50; PULSE 66; RESP 20; TEMP 36
--- NOTE | 2020-12-18 13:10 | MHC.CLN ---
F/U PT CHANGED CODE STATUS TO FULL PO INTAKE 25% DIET RX: REGULAR-APPROPRIATE MAY NEED RENAL DIET IF PO INTAKE IMPROVES PT WITH INCREASED NUTRITION NEEDS R/T STAGE 4 SACRAL ULCER RECOMMEND ADDING ENSURE CLEAR TID (RENAL FRIENDLY) AND RITCHIE TO PROMOTE WOUND HEALING SUPPLEMENT TO PROVIDE 880KCALS, 29G PROTEIN MONITOR PO INTAKE CLOSELY
[2020-12-18 13:27] VITALS: RESP 18
[2020-12-18] MEDS: HYDROmorphone HCl 1 MG/ML SYRINGE IVPUSH (13:27)
--- NOTE | 2020-12-18 13:42 | PM.DS ---
DS: Providers Provider Date of Service: 12/19/20 Date of admission: 12/12/20 04:34 Primary care physician: Unknown Physician Consults: 12/13/20 12:16 Consult to General Surgery Routine Consulting Provider: Lilly Cook Reason for consultation: decubitus ulcer 12/13/20 12:19 Consult to Nephrology Routine Consulting Provider: [facility] Reason for consultation: dialysis pt Has provider been notified: No 12/13/20 15:05 Consult to Infectious Diseases Routine Consulting Provider: Dorys Iqbal Reason for consultation: sacral wound. Antibiotics? osteo? Has provider been notified: No DS: Diagnosis Discharge Diagnosis (1) ESRD (end stage renal disease): Status: Acute Problem details: HD as indicated Supportive care Prognosis guarded Consider hospice DS: Medications Discharge Medications Home Medications: Home Medications Medication Instructions Recorded Confirmed Nephro-Huan 1 tab PO DAILY 09/20/20 12/12/20 acetaminophen 650 mg PO Q4H PRN 09/20/20 12/12/20 atorvastatin 20 mg PO BEDTIME 09/20/20 12/12/20 midodrine 5 mg PO TID 09/20/20 12/12/20 mirtazapine [Remeron] 7.5 mg PO BEDTIME 09/20/20 12/12/20 sevelamer carbonate 800 mg PO TID 09/20/20 12/12/20 cholecalciferol (vitamin D3) 125 mcg PO DAILY 12/12/20 12/12/20 fluoxetine 1 tab PO DAILY 12/12/20 12/12/20 lidocaine 1 appl TOPICAL DAILY 12/12/20 12/12/20 meropenem 1 g IV DAILY 12/12/20 12/12/20 oxycodone 5 mg PO Q4H PRN 12/12/20 12/12/20 oxycodone 10 mg PO Q4H PRN 12/12/20 12/12/20 pantoprazole 20 mg PO DAILY 12/12/20 12/12/20 quetiapine 1 tab PO BEDTIME 12/12/20 12/12/20 Previous Rx's Medication Instructions Recorded hydromorphone [Dilaudid] 4 mg PO Q4-6H PRN #20 tab 12/18/20 DS: Summary Hospital Course Hospital Course: Date of admission: 12/12/20.. This is history of present illness as documented by the ICU service. Chief Complaint: Septic shock/healthcare acquired PNA/multiple pressure ulcers/cachexia HPI: Patient who is Luxembourger-speaking only, 60 years old, with underlying history of end-stage renal disease on hemodialysis Wednesday and Fridays, hyperlipidemia, hypertension, diabetes, insomnia, orthostatic hypotension, GERD, enterocolitis due to C diff, acute pancreatitis without necrosis or infectious, chronic viral hepatitis-C, diabetic nephropathy, malignant neoplasm of the rectum, colon, uterus, opioid dependence, anemia of chronic disease, atrial fibrillation, right great toe abscess, chronic debilitation. Reportedly the patient was transferred to the ER after her hemodialysis session as she was noted to have a blood pressure of 60/30, and altered mental status on arrival to the ER her blood pressure was 70/37, heart rate 57, she was not hypoxic or tachypneic. At 11:30 pm he had been noted the patient's core temperature was 94.3? and was placed on a Vladimir Hugger. Patient's workup revealed a white count of 10.6, H&H of 7.6 and 25.2 respectively with platelet count of 117. PTT 24.5, INR 2.0. Electrolytes were unremarkable. Baseline renal function with current BUN of 32 and creatinine of 5.09, random glucose 120. Lactic acid 1.1. Calcium 8.0, total bilirubin 3.1, direct bilirubin 2.6. A CT 27, ALT less than 6. Ammonia 30. Alk phos 519. Troponin 133. Occult blood is positive. COVID negative. She did receive 2 L of IV fluids. Given the possible infiltrates, she had also received Zosyn without any reactions despite of her documented penicillin allergy. She was thought not to be septic, however she has not been able to be weaned off the dopamine drip and has required higher doses than what she was started at. She also received Solu-Cortef and midodrine without improvement. Given the lack of bed capacity, the patient was going to be transferred to a different facility but this was not possible and we were finally able to keep her here. Upon seeing this patient, it was evident that the patient is sicker than stated, she also looks cachectic, wasted and older than her age. She is not responding to my commands and only to sternal rub with intermittent Kussmaul respirations as well as low respiratory rate between 10 and 12 and significantly obtunded. Unable to answer questions. Hospital course: This patient who presented to the hospital with septic shock from infected decubital ulcer likely osteomyelitis as well as pneumonia was initially admitted through the ICU because of hypotension and septic shock. Ultimately the family was reached by the ICU staff and they reportedly did discuss the patient's overall poor prognosis with the family and it was understood at the time that the patient is to be comfort care measures only and was subsequently transferred to the medical floor to the hospitalist service. However the following day the family stated that there was a misunderstanding between with the ICU staff and that did never intended for the patient to be comfort care and therefore antibiotics were re-initiated and all other services were restored. Surgery and wound care consultations were requested, Infectious disease consultation was requested, nephrology was requested so that she can undergo her usual dialysis. She has extensive stage IV decubital ulcers as evident in the pictures and appeared to be have been infected and osteomylitis not excluded. Dr. Cook from surgery and underwent some bedside debridement and cleaning and has been getting dressing on a regular basis as recommended by wound care including frequent turning, appropriate bed. Unfortunately her wounds are so extensive extensive and combined with multipole medical problems and poor nutritional status, these wounds are unlikely to to heal and additionally, she is unlikely to tolerate deep extensive surgical intervention. She was initially given vancomycin and the Zosyn and was seen by the Infectious Disease Dr. Iqbal and at this point is recommended to be treated with Zosyn for a period of 6 weeks for presumed osteomyelitis and pneumonia. She has a PICC line in place for IV antibiotics. Cultures thus far have not reveale any organisms. Patient was continue on her usual dialysis on Wednesday, Wednesday. Her overall prognosis is rather guarded to poor,, and the idea of hospice has been brought to the familys's attention on more than one occasion and they would like to maintain full code status. Wound care recommend c urrently our plan would be to carry out Dakin's solution dressing changes BID for the next week to 2 and clean this up. This may get us to the point where some Isolated debridement may be able to take down any residual necrotic tissue. If the patient continues to do well suggest trial of a wound VAC. All of this must also occur concurrent with increased nutritional support good protein intake close diabetic control and pressure offloading positioning . Her pain should is to be treated with dilaudid and Anxiety with Ativan. She will be transfered to SNF and should follow up with wound care service. Time Spent with Patient Time attestation: Total time spent providing and/or coordinating discharge services: Discharge coordination time: Greater than 30 minutes Physical Exam Vital Signs: Vital Signs: Last Vital Signs Temp 96.8 F 12/18/20 11:14 Pulse 66 12/18/20 11:14 Resp 18 12/18/20 13:27 BP 106/50 L 12/18/20 11:14 Pulse Ox 98 12/18/20 07:53 Oxygen Flow Rate 2 12/12/20 04:34 Body Mass Index 21.3 Const: Other: Not very communicative, appears extremely frail and almost lethargic General: cooperative, no acute distress, alert, awake, anxious, confusion and ill appearing Nutritional Appearance: cachectic Orientation/consciousness: confusion HENMT: Head: Yes normal to inspection, Yes No palpable skull fracture present, Yes normocephalic and Yes atraumatic Mouth: Normal oral and palatal mucosa present Neck: Neck: Yes normal visual inspection, Yes full ROM, Yes no lymphadenopathy, Yes no meningeal signs, Yes trachea midline, Yes supple and No tender Chest: Chest palpation & inspection: normal inspection of the chest Resp: Effort & Inspection: normal respiratory effort and able to speak in complete sentences Auscultation: clear to auscultation bilaterally and diminished lung sounds Cardio: Jugular venous distension: no JVD Palpation: heave and no palpable S3 Rate: regular rate Rhythm: regular rhythm Heart sounds: S1 normal heart sound present, S2 normal heart sound present and no rubs GI: Inspection: Yes normal to inspection and No abdominal wall ecchymosis Palpation (GI): Soft to palpation, not firm, nontender, no guarding and not rigid Auscultation: normal bowel sounds Skin: Other: Large sacrococcygeal ulcer, some surrounding eschar, dry, no pus, no obvious necrotic or gangrenous tissue;--see picture General skin exam: no rashes or lesions noted and elasticity normal Neuro: General: no meningeal signs and confusion Extrem: Other: left BKA Psych: Appearance: grossly abnormal and poorly kempt DS: Data Data Completed and Pending Completed studies during hospitalization [Text1]: Procedures Performance of Urinary Filtration, Intermittent, Less than 6 Hours Per Day (09/20/20) Labs on day of discharge: Laboratory Results - last 24 hr 12/17/20 20:22 Lactic Acid 1.6 Discharge Plan Discharge Anticipated Discharge Date/Time: 12/18/20 13:06 Patient Disposition: er SNF Discharge Diagnosis: Infected decubitus ulcers, osteomylitis, pneumonia Referrals: [facility] [Outside] - 1 Week Physician,Unknown [Primary Care Provider] - 1 Week Discharge Medications: New Zosyn in dextrose (iso-osm) 4.5 gram/100 mL piggyback 4.5 g IV Q12H 42 Days Qty: 9450 RF: 0 hydromorphone [Dilaudid] 2 mg tablet 2 - 4 mg PO Q4H PRN (Reason: pain (scale score 7-10)) Qty: 20 RF: 0 lorazepam [Ativan] 1 mg tablet 1 mg PO Q4H PRN (Reason: anxiety) Qty: 20 RF: 0 Continued atorvastatin 20 mg Tablet 20 mg PO BEDTIME RF: 0 midodrine 5 mg Tablet 5 mg PO TID RF: 0 Nephro-Huan 0.8 mg Tablet 1 tab PO DAILY RF: 0 mirtazapine [Remeron] 15 mg Tablet 7.5 mg PO BEDTIME RF: 0 acetaminophen 325 mg Capsule 650 mg PO Q4H PRN (Reason: Pain) RF: 0 sevelamer carbonate 800 mg Tablet 800 mg PO TID RF: 0 quetiapine 25 mg tablet 1 tab PO BEDTIME RF: 0 lidocaine 5 % Cream 1 appl TOPICAL DAILY RF: 0 fluoxetine 10 mg tablet 1 tab PO DAILY RF: 0 pantoprazole 20 mg Tablet,Delayed Release (Dr/Ec) 20 mg PO DAILY RF: 0 cholecalciferol (vitamin D3) 125 mcg (5,000 unit) Tablet 125 mcg PO DAILY RF: 0 Discontinued oxycodone 5 mg Tablet 5 mg PO Q4H PRN (Reason: Pain) RF: 0 oxycodone 5 mg Tablet 10 mg PO Q4H PRN (Reason: Severe Pain (Scale Score 7-10)) RF: 0 meropenem 1 gram Recon Soln 1 g IV DAILY RF: 0 Discharge Orders: Discharge Order (Routine); Ordered 12/18/20 Ordered By: Marquez Johnson Diet: advance to usual diet Activity on Discharge: As tolerated Stand Alone Forms: Patient Portal Discharge page Care Plan Goals: goal is to have wound heal Health Concerns: Extensive decub ulcers Plan of Treatment: Dakin's solution dressing changes BID for the next week to 2 and clean this up. Follow up with wound clinic. IV antibiotics with Zosyn 4.5 gram twice a day Assessment: Extensive sacral abscess that have led to sepsis and septic shock. Discharge Date/Time: 12/18/20 16:43
--- NOTE | 2020-12-18 14:13 | MHC.CM.PN ---
pt acceptred at [facility] has ins auth from [facility] wait picc placement states pt can be dcd tomorrow ..called and spoke with son liana/hcp [phone] who was updated with this plan he is agreeable
--- NOTE | 2020-12-18 14:55 | MHC.CM.PN ---
revisited with pt and again asked if he would agree to str perphysical therapies recommendation pt adamantly refuses str, he wants to go home .. even its only for a month ..imm updated
[2020-12-18 15:40] LABS: COVID-19 Test Negative (Negative)
--- NOTE | 2020-12-18 15:48 | MHC.CM.PN ---
pt to be dcd today to [facility] ,ins auth given..pts son liana notified of dc given facilitys phone number and address liana was contacted by this number [phone]
== END 2020-12-18 16:43 | disposition skilled nursing facility (03) | DRG 720 ==
LOC: HO.ED 21:18 → HO.ICU 12-12 04:56 → HO.IMC 12-13 04:54
PROVIDERS: Internal Medicine; Physician Assistant; Physician Assistant Medical; Admitting Provider Anesthesiology; Emergency Provider Internal Medicine; PCP Physician Assistant Medical; Visit Provider Internal Medicine
DX: A41.9 Sepsis, unspecified organism (principal); R65.21 Severe sepsis with septic shock; E43 Unspecified severe protein-calorie malnutrition; L89.154 Pressure ulcer of sacral region, stage 4; J18.9 Pneumonia, unspecified organism; D68.9 Coagulation defect, unspecified; E11.22 Type 2 diabetes mellitus with diabetic chronic kidney disease; E11.52 Type 2 diabetes mellitus with diabetic peripheral angiopathy with gangrene; D63.1 Anemia in chronic kidney disease; C20 Malignant neoplasm of rectum; I12.0 Hypertensive chronic kidney disease with stage 5 chronic kidney disease or end stage renal disease; I95.9 Hypotension, unspecified; N18.6 End stage renal disease; E11.69 Type 2 diabetes mellitus with other specified complication; M86.9 Osteomyelitis, unspecified; Z99.81 Dependence on supplemental oxygen; Z68.21 Body mass index [BMI] 21.0-21.9, adult; Z20.822 Contact with and (suspected) exposure to COVID-19; Z89.512 Acquired absence of left leg below knee; Z99.2 Dependence on renal dialysis; Z88.0 Allergy status to penicillin; Z79.899 Other long term (current) drug therapy
CPT/HCPCS: 36415; 36600; 70450; 71045; 71250; 74176; 80048; 80053; 80076; 80202; 82140; 82272; 82947; 83605; 83690; 84100; 84484; 85025; 85610; 85652; 85730; 86140; 86850; 86900; 86901; 87040; 87324; 87449; 87635; 90999; 93005; 94660; 96365; 96368; 96375; 97162; 99285; J0692; J0696; J0885; J1170; J1265; J2060; J2370; J2543; J3370; P9047